=== PATIENT | male | born 1970 | race Caucasian/White ===

== ENCOUNTER 2019-12-05 07:14 | Inpatient (IN) | payer BC ==
[2019-12-05] MEDS ORDERED: ONDANSETRON 4 MG/2 ML VIAL IVP STA (07:53)
[2019-12-05] MEDS ORDERED: PANTOPRAZOLE 40 MG/10 ML VIAL IVP STA (07:53)
[2019-12-05] MEDS ORDERED: SODIUM CHLORIDE 0.9% 1,000 ML IV STA (07:53)
[2019-12-05] MEDS ORDERED: LORazepam 2 MG/ML INJ IV STA (07:54)
--- NOTE | 2019-12-05 07:57 | ED ---
General Adult HPI - General Chief complaint: Alcohol Stated complaint: Detox Time Seen by Provider: 12/05/19 07:45 Source: patient, family, RN notes reviewed Mode of arrival: ambulatory Limitations: no limitations - History of Present Illness Initial comments: Patient is a pleasant 49-year-old male presenting to the emergency department with concerns for alcohol problems. Patient states he drinks whiskey heavily for around 10 years. Patient states he stopped just over 3 days ago. Patient states he vomited heavily for 2 days however that has resolved. Patient does have some discomfort of his upper abdomen. Patient started shaking yesterday. This has improved however not resolved. Patient is having hallucinations. Patient is hearing things such as sounds and also seen some things that are difficult to identify. Patient did see a one time. There has been a little bit of confusion. No history of similar symptoms previously. admits that eyes look yellow which she just noticed this morning. Patient states his urine was dark this morning. - Related Data Allergies Allergy/AdvReac Type Severity Reaction Status Date / Time No Known Allergies Allergy Verified 12/05/19 07:40 Review of Systems ROS Statement: Those systems with pertinent positive or pertinent negative responses have been documented in the HPI. ROS Other: All systems not noted in ROS Statement are negative. Constitutional: Denies: fever, chills Eyes: Reports: as per HPI. Denies: eye pain ENT: Denies: ear pain Respiratory: Denies: dyspnea Cardiovascular: Denies: chest pain Endocrine: Reports: fatigue Gastrointestinal: Reports: as per HPI, nausea, vomiting Genitourinary: Denies: dysuria Musculoskeletal: Denies: back pain Skin: Denies: rash Neurological: Denies: weakness Past Medical History Past Medical History: No Reported History History of Any Multi-Drug Resistant Organisms: None Reported Past Surgical History: No Surgical Hx Reported Past Psychological History: No Psychological Hx Reported Smoking Status: Current every day smoker Past Alcohol Use History: Abuse, Heavy Past Drug Use History: Marijuana General Exam Limitations: no limitations General appearance: alert, in no apparent distress Head exam: Present: normocephalic Eye exam: Present: scleral icterus ENT exam: Present: normal oropharynx Neck exam: Present: normal inspection Respiratory exam: Present: normal lung sounds bilaterally Cardiovascular Exam: Present: tachycardia, normal heart sounds Expanded Peripheral pulses: 2+: Dorsalis Pedis (R), Dorsalis Pedis (L) GI/Abdominal exam: Present: soft, tenderness (Mild tenderness upper abdomen), organomegaly (Hepatomegaly) Extremities exam: Present: normal inspection Neurological exam: Present: alert Psychiatric exam: Present: normal affect, normal mood Skin exam: Present: other (Slight jaundice appearance to the skin) Course Vital Signs 12/05/19 07:37 Temperature 98.2 F Pulse Rate 117 H Respiratory 20 Rate Blood Pressure 125/88 O2 Sat by Pulse 100 Oximetry Medical Decision Making - Medical Decision Making Patient reevaluated. Patient and family updated. Case was discussed in detail with Dr. leal, who will admit for possible call. GI will be placed on consult. - Lab Data Result diagrams: 12/05/19 08:20 12/05/19 08:20 Lab Results 12/05/19 12/05/19 12/05/19 Range/Units 08:20 08:20 08:20 WBC 9.4 (3.8-10.6) k/uL RBC 2.85 L (4.30-5.90) m/uL Hgb 12.2 L (13.0-17.5) gm/dL Hct 37.2 L (39.0-53.0) % MCV 130.6 H (80.0-100.0) fL MCH 43.0 H (25.0-35.0) pg MCHC 32.9 (31.0-37.0) g/dL RDW 14.7 (11.5-15.5) % Plt Count 103 L (150-450) k/uL Neutrophils % 73 % Lymphocytes % 19 % Monocytes % 6 % Eosinophils % 1 % Basophils % 0 % Neutrophils # 6.8 (1.3-7.7) k/uL Lymphocytes # 1.8 (1.0-4.8) k/uL Monocytes # 0.5 (0-1.0) k/uL Eosinophils # 0.1 (0-0.7) k/uL Basophils # 0.0 (0-0.2) k/uL Manual Slide Review Performed Macrocytosis Marked A Target Cells Present PT 23.5 H (9.0-12.0) sec INR 2.4 H (<1.2) APTT 35.1 H (22.0-30.0) sec Sodium 129 L (137-145) mmol/L Potassium 3.8 (3.5-5.1) mmol/L Chloride 87 L (98-107) mmol/L Carbon Dioxide 29 (22-30) mmol/L Anion Gap 13 mmol/L BUN 18 (9-20) mg/dL Creatinine 0.85 (0.66-1.25) mg/dL Est GFR (CKD-EPI)AfAm >90 (>60 ml/min/1.73 sqM) Est GFR (CKD-EPI)NonAf >90 (>60 ml/min/1.73 sqM) Glucose 91 (74-99) mg/dL Calcium 9.9 (8.4-10.2) mg/dL Total Bilirubin 10.2 H (0.2-1.3) mg/dL AST 152 H (17-59) U/L ALT 73 H (4-49) U/L Alkaline Phosphatase 193 H (38-126) U/L Total Protein 6.5 (6.3-8.2) g/dL Albumin 3.3 L (3.5-5.0) g/dL Amylase 72 (30-110) U/L Lipase 324 H (23-300) U/L Hepatitis A IgM Ab 12/05/19 Range/Units 08:36 WBC (3.8-10.6) k/uL RBC (4.30-5.90) m/uL Hgb (13.0-17.5) gm/dL Hct (39.0-53.0) % MCV (80.0-100.0) fL MCH (25.0-35.0) pg MCHC (31.0-37.0) g/dL RDW (11.5-15.5) % Plt Count (150-450) k/uL Neutrophils % % Lymphocytes % % Monocytes % % Eosinophils % % Basophils % % Neutrophils # (1.3-7.7) k/uL Lymphocytes # (1.0-4.8) k/uL Monocytes # (0-1.0) k/uL Eosinophils # (0-0.7) k/uL Basophils # (0-0.2) k/uL Manual Slide Review Macrocytosis Target Cells PT (9.0-12.0) sec INR (<1.2) APTT (22.0-30.0) sec Sodium (137-145) mmol/L Potassium (3.5-5.1) mmol/L Chloride (98-107) mmol/L Carbon Dioxide (22-30) mmol/L Anion Gap mmol/L BUN (9-20) mg/dL Creatinine (0.66-1.25) mg/dL Est GFR (CKD-EPI)AfAm (>60 ml/min/1.73 sqM) Est GFR (CKD-EPI)NonAf (>60 ml/min/1.73 sqM) Glucose (74-99) mg/dL Calcium (8.4-10.2) mg/dL Total Bilirubin (0.2-1.3) mg/dL AST (17-59) U/L ALT (4-49) U/L Alkaline Phosphatase (38-126) U/L Total Protein (6.3-8.2) g/dL Albumin (3.5-5.0) g/dL Amylase (30-110) U/L Lipase (23-300) U/L Hepatitis A IgM Ab NEGATIVE - Radiology Data Radiology results: report reviewed (Ultrasound of the gallbladder shows hepatomegaly and fatty infiltration of the liver.), image reviewed (Abdominal x- ray shows no acute process) Disposition Clinical Impression: Alcoholic cirrhosis, Alcohol withdrawal Disposition: ADMITTED IP TO THIS [facility] Condition: Serious Is patient prescribed a controlled substance at d/c from ED?: No Referrals: None,Stated [Primary Care Provider] - 1-2 days Decision Time: 10:07
[2019-12-05 08:51] LABS: ALT 73 U/L (4-49); AST 152 U/L (17-59); African American GFR (CKD) >90 (>60 ml/min/1.73 sqM); Albumin 3.3 g/dL (3.5-5.0); Alkaline Phosphatase 193 U/L (38-126); Amylase 72 U/L (30-110); Anion Gap 13 mmol/L; Blood Urea Nitrogen 18 mg/dL (9-20); Calcium 9.9 mg/dL (8.4-10.2); Carbon Dioxide 29 mmol/L (22-30); Chloride 87 mmol/L (98-107); Glucose 91 mg/dL (74-99); Non-African American GFR(CKD) >90 (>60 ml/min/1.73 sqM); Potassium 3.8 mmol/L (3.5-5.1); Sodium 129 mmol/L (137-145); Total Bilirubin 10.2 mg/dL (0.2-1.3); Total Protein 6.5 g/dL (6.3-8.2)
--- NOTE | 2019-12-05 08:56 | XR ---
EXAMINATION TYPE: XR KUB , 2 VIEWS DATE OF EXAM ORDERED: 12/05/2019 HISTORY: abdominal pain. COMPARISON: None. FINDINGS: The lung bases are clear. Within the abdomen, the abdominal gas pattern is normal. There is no evidence of obstruction or free air. No unusual calcifications are seen. IMPRESSION: NO ACUTE INTRA-ABDOMINAL ABNORMALITY.
[2019-12-05 08:57] LABS: INR 2.4 (<1.2); Partial Thromboplastin Time 35.1 sec (22.0-30.0); Prothrombin Time 23.5 sec (9.0-12.0)
[2019-12-05 09:04] LABS: Basophils % (A) 0 %; Eosinophils # (A) 0.1 k/uL (0-0.7); Eosinophils % (A) 1 %; HCT 37.2 % (39.0-53.0); HGB 12.2 gm/dL (13.0-17.5); Lymphocytes # (A) 1.8 k/uL (1.0-4.8); Lymphocytes % (A) 19 %; MCHC 32.9 g/dL (31.0-37.0); MCV 130.6 fL (80.0-100.0); Macrocytosis Marked; Mean Platelet Volume 10.5; Monocytes # (A) 0.5 k/uL (0-1.0); Monocytes % (A) 6 %; Neutrophils # (A) 6.8 k/uL (1.3-7.7); Neutrophils % (A) 73 %; Platelet Count 103 k/uL (150-450); RBC 2.85 m/uL (4.30-5.90); RDW 14.7 % (11.5-15.5); WBC 9.4 k/uL (3.8-10.6)
[2019-12-05 09:32] LABS: Target Cells Present
--- NOTE | 2019-12-05 09:52 | US ---
EXAMINATION TYPE: US gallbladder DATE OF EXAM: 12/05/2019 COMPARISON: NONE CLINICAL HISTORY: Evaluate gallbladder and liver. Detox EXAM MEASUREMENTS: Liver Length: 19 cm Gallbladder Wall: .3 cm CBD: .5 cm Right Kidney: 10.4 x 4.6 x 4.3 cm Pancreas: Obscured by bowel gas Liver: Increased attenuation heterogenous enlarged. Gallbladder: No stones seen Evidence for sonographic Kaye's sign: No CBD: wnl Right Kidney: wnl The pancreas is obscured. The liver is enlarged measuring 19 cm there is increased attenuation and may be fatty infiltrated. Gallbladder is unremarkable. The gallbladder wall measures 3 mm. The distal common hepatic duct measu res 5 mm. There is no sonographic Kaye's sign. The right kidney is unremarkable. IMPRESSION: HEPATOMEGALY AND FATTY INFILTRATION OF THE LIVER.
[2019-12-05 09:58] LABS: Hepatitis A Antibody IgM NEGATIVE
[2019-12-05] MEDS ORDERED: NALOXONE 0.4 MG/ML 1 ML VIAL IV PRN (10:07)
[2019-12-05] MEDS: SODIUM CHLORIDE 0.9% 1,000 ML IV SCH (12:20)
--- NOTE | 2019-12-05 13:12 | P.CONS ---
History of Present Illness - Reason for Consult Consult date: 12/05/19 Alcoholic hepatitis, cirrhosis Requesting physician: Srinivasa E Sheet - Chief Complaint Alcohol withdrawl - History of Present Illness 49-year-old male with a medical history significant for alcoholism who presented to the hospital due to alcohol withdrawal. The patient reports 12 years of heavy drinking initially drinking a fifth of whiskey a day this had increased to a pint of whiskey daily for the past few years. The patient tried weaning himself off of alcohol however has suffered problems with balance, confusion and multiple episodes of nausea and vomiting a few days ago. Patient does report hallucinations. The patient has report that he has had yellowing of his eyes and dark urine over the past week. No known history of cirrhosis in the past. Laboratory evaluation on presentation significant for WBC 9.4, hemoglobin 12.2, platelet count 103,000, INR 2.4, total bilirubin 10.2, alkaline phosphatase 193, AST 152, ALT 73, amylase 72, lipase 324 with an ultrasound showing fatty infiltration of the liver and hepatomegaly. Review of Systems REVIEW OF SYSTEMS: CONSTITUTIONAL: Denies any fevers, chills, weight change or fatigue. CARDIOVASCULAR: Denies any chest pain, palpitations high or low blood pressures RESPIRATORY: Denies any shortness of breath, hemoptysis or cough. GENITOURINARY: No dysuria or hematuria, but does report dark [employer] colored urine. MUSCULOSKELETAL: No weakness reported. SKIN: Denies any new rashes or lesions, but does report pallor and jaundice PSYCHIATRIC: Denies any depression or anxiety, history of alcohol abuse. NEUROLOGY: Denies headache, denies any new focal deficits, but has had problems with balance and hallucinations. EARS/NOSE/THROAT: No recent hearing change, congestion, nasal discharge or sore throat. EYES: No pain in eyes, discharge or change in vision. GASTROINTESTINAL: As per HPI. Past Medical History Past Medical History: No Reported History History of Any Multi-Drug Resistant Organisms: None Reported Past Surgical History: No Surgical Hx Reported Past Anesthesia/Blood Transfusion Reactions: No Reported Reaction Past Psychological History: No Psychological Hx Reported Smoking Status: Current every day smoker Past Alcohol Use History: Abuse, Heavy Past Drug Use History: Marijuana - Past Family History Father Family Medical History: Cancer Medications and Allergies Home Medications Medication Instructions Recorded Confirmed Type No Known Home Medications 12/05/19 12/05/19 History Allergies Allergy/AdvReac Type Severity Reaction Status Date / Time No Known Allergies Allergy Verified 12/05/19 12:35 Physical Exam Vitals: Vital Signs Temp Pulse Pulse Resp BP BP Pulse Ox 12/05/19 12:15 14 12/05/19 11:45 98.3 F 112 H 20 143/87 94 L 12/05/19 11:10 105 H 18 130/88 96 12/05/19 07:37 98.2 F 117 H 20 125/88 100 Intake and Output 12/04/19 12/05/19 12/05/19 22:59 06:59 14:59 Other: Weight 61.235 kg On physical examination, patient appears comfortable in no apparent distress. HEAD: Normocephalic, atraumatic. EYES: Scleral icterus. No conjunctival injection. MOUTH: No lesions, tongue midline. NECK: Trachea midline, no gross abnormalities. CHEST: Clear to auscultation with no wheezing or rhonchi appreciated. HEART: Regular rate and rhythm. ABDOMEN: Soft, mildly tender to palpation. Bowel sounds are positive. No organomegaly. No guarding or rigidity. EXTREMITIES: No pedal edema. SKIN: No rashes, jaundice. NEUROLOGIC: Alert and oriented x3, with no asterixis noted. No focal deficits. Results CBC & Chem 7: 12/05/19 08:20 12/05/19 08:20 Labs: Abnormal Lab Results - Last 24 Hours (Table) 12/05/19 12/05/19 12/05/19 Range/Units 08:20 08:20 08:20 RBC 2.85 L (4.30-5.90) m/uL Hgb 12.2 L (13.0-17.5) gm/dL Hct 37.2 L (39.0-53.0) % MCV 130.6 H (80.0-100.0) fL MCH 43.0 H (25.0-35.0) pg Plt Count 103 L (150-450) k/uL Macrocytosis Marked A PT 23.5 H (9.0-12.0) sec INR 2.4 H (<1.2) APTT 35.1 H (22.0-30.0) sec Sodium 129 L (137-145) mmol/L Chloride 87 L (98-107) mmol/L Total Bilirubin 10.2 H (0.2-1.3) mg/dL AST 152 H (17-59) U/L ALT 73 H (4-49) U/L Alkaline Phosphatase 193 H (38-126) U/L Albumin 3.3 L (3.5-5.0) g/dL Lipase 324 H (23-300) U/L US - abdomen: report reviewed (Ultrasound of the abdomen with hepatomegaly and fatty infiltration of liver noted.) Assessment and Plan (1) Alcoholic hepatitis Narrative/Plan: 49-year-old male with long-standing history of alcohol abuse presenting due to alcohol withdrawal. Liver enzymes highly suggestive of acute alcoholic hepatitis with thrombocytopenia highly suggestive of portal hypertension and underlying cirrhosis. On presentation to bilirubin 10.2, alkaline phosphatase 193, AST 152 and ALT 73 with an INR of 2.4 and a platelet count of 103,000. Ultrasound of the abdomen showed a fatty liver with hepatomegaly. Patient has been drinking heavily for 12 years. He has noted jaundice and dark urine over the past week and has been going through alcohol withdrawal. Current Visit: Yes Status: Acute Code(s): K70.10 - ALCOHOLIC HEPATITIS WITHOUT ASCITES SNOMED Code(s): 094215315 (2) Alcohol withdrawal Current Visit: Yes Status: Acute Code(s): F10.239 - ALCOHOL DEPENDENCE WITH WITHDRAWAL, UNSPECIFIED SNOMED Code(s): 147215178 (3) Alcoholic cirrhosis Current Visit: Yes Status: Acute Code(s): K70.30 - ALCOHOLIC CIRRHOSIS OF LIVER WITHOUT ASCITES SNOMED Code(s): 057459220 Plan: Supportive care Clear liquid diet Continue monitor CBC, BMP, LFTs, INR Vitamin K IV given for 3 doses Lactulose ordered twice a day Ammonia level ordered Viral hepatitis negative for acute hepatitis A with other viral studies pending Ultrasound of the abdomen reviewed Continue to monitor for signs or symptoms of alcohol withdrawal Thank you for allowing us to participate in the care of the patient we will continue to follow
[2019-12-05] MEDS: PHYTONADIONE 10 MG in SODIUM CHLORIDE 0.9% 50 ML IVPB SCH (15:25)
[2019-12-05] MEDS: NICOTINE 21MG/24HR PATCH TRANSDERM SCH (15:25)
--- NOTE | 2019-12-05 16:50 | XR ---
EXAMINATION TYPE: XR chest 1V DATE OF EXAM: 12/05/2019 COMPARISON: NONE HISTORY: Altered mental status TECHNIQUE: Single view FINDINGS: Heart and mediastinum are normal. Lungs are clear. Diaphragm is normal. Bony thorax appears normal. IMPRESSION: Normal chest. Normal heart.
[2019-12-05] MEDS: LORazepam 2 MG/ML INJ IV PRN ×3 (17:20→19:58)
--- NOTE | 2019-12-05 17:20 | CT ---
EXAMINATION TYPE: CT brain wo con DATE OF EXAM: 12/05/2019 COMPARISON: None HISTORY: Patient poor historian. Confusion CT DLP: 1012.7 mGycm Automated exposure control for dose reduction was used. Multiple axial sections were obtained of the brain without contrast. Ventricles and sulci appear normal. There is no mass effect nor midline shift. There is no sign of in tracranial hemorrhage. The calvarium is intact. There is incomplete pneumatization of the mastoid sin uses. IMPRESSION: Negative unenhanced head CT scan.
[2019-12-05] MEDS: THIAMINE 100 MG TAB PO SCH (17:21)
[2019-12-05] MEDS: LACTULOSE 20 GM/30 ML CUP PO SCH (21:11)
[2019-12-06] MEDS: LORazepam 2 MG/ML INJ IV PRN ×13 (00:39→23:35)
[2019-12-06] MEDS: SODIUM CHLORIDE 0.9% 1,000 ML IV SCH (05:10)
[2019-12-06 07:22] LABS: INR 1.8 (<1.2); Prothrombin Time 17.8 sec (9.0-12.0)
[2019-12-06 07:25] LABS: Albumin 2.7 g/dL (3.5-5.0); Bilirubin, Conjugated 7.9 mg/dL (0.0-0.3); Bilirubin, Delta 2.2 mg/dL (0.0-0.2); Bilirubin,Unconjugated 2.5 mg/dL (0.0-1.1); Total Bilirubin 12.6 mg/dL (0.2-1.3); Total Protein 5.7 g/dL (6.3-8.2)
[2019-12-06] MEDS: NICOTINE 21MG/24HR PATCH TRANSDERM SCH (07:52)
[2019-12-06] MEDS: PANTOPRAZOLE 40 MG/10 ML VIAL IV SCH (07:52)
[2019-12-06] MEDS: THIAMINE 100 MG TAB PO SCH ×2 (07:57→17:45)
[2019-12-06] MEDS: LACTULOSE 20 GM/30 ML CUP PO SCH ×2 (07:58→20:09)
[2019-12-06] MEDS: MULTIVITAMINS, THERA 1 EACH TAB PO SCH (07:58)
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
[2019-12-06 09:48] LABS: ALT 78 U/L (4-49); AST 151 U/L (17-59); African American GFR (CKD) >90 (>60 ml/min/1.73 sqM); Albumin 2.7 g/dL (3.5-5.0); Alkaline Phosphatase 158 U/L (38-126); Anion Gap 13 mmol/L; Blood Urea Nitrogen 18 mg/dL (9-20); Calcium 8.7 mg/dL (8.4-10.2); Carbon Dioxide 26 mmol/L (22-30); Chloride 93 mmol/L (98-107); Magnesium 1.8 mg/dL (1.6-2.3); Non-African American GFR(CKD) >90 (>60 ml/min/1.73 sqM); Potassium 3.6 mmol/L (3.5-5.1); Sodium 132 mmol/L (137-145); Total Protein 5.7 g/dL (6.3-8.2)
[2019-12-06 09:57] LABS: Basophils % (A) 0 %; Eosinophils # (A) 0.1 k/uL (0-0.7); Eosinophils % (A) 1 %; HCT 32.1 % (39.0-53.0); HGB 10.5 gm/dL (13.0-17.5); Lymphocytes # (A) 1.8 k/uL (1.0-4.8); Lymphocytes % (A) 20 %; MCHC 32.6 g/dL (31.0-37.0); MCV 132.7 fL (80.0-100.0); Macrocytosis Marked; Mean Platelet Volume 11.8; Monocytes # (A) 0.7 k/uL (0-1.0); Monocytes % (A) 8 %; Neutrophils # (A) 6.1 k/uL (1.3-7.7); Neutrophils % (A) 69 %; Platelet Count 100 k/uL (150-450); RBC 2.42 m/uL (4.30-5.90); RDW 15.5 % (11.5-15.5); WBC 8.9 k/uL (3.8-10.6)
[2019-12-06 10:00] LABS: MCH 43.3 pg (25.0-35.0)
[2019-12-06 10:07] LABS: Glucose 46 mg/dL (74-99)
[2019-12-06] MEDS ORDERED: DEXTROSE 50% SYRINGE 50 ML IVP ONE (10:16)
[2019-12-06 10:17] LABS: Glucose,Whole Blood 56 mg/dL (75-99)
[2019-12-06 10:42] LABS: Poikilocytosis (M) Present; Target Cells Present
[2019-12-06 10:50] LABS: Glucose,Whole Blood 209 mg/dL (75-99)
[2019-12-06] MEDS ORDERED: DEXTROSE 50% SYRINGE 50 ML IVP STA (10:50)
[2019-12-06] MEDS: DEXTROSE 5%-0.9% NACL 1,000 ML IV SCH (12:33)
[2019-12-06] MEDS: PHYTONADIONE 10 MG in SODIUM CHLORIDE 0.9% 50 ML IVPB SCH (12:39)
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
[2019-12-06 13:29] LABS: Appearance,Urine Clear (Clear); Bilirubin,Urine 2+ (Negative); Blood,Urine Negative (Negative); Color,Urine Dark Brown; Glucose,Urine (UA) Negative (Negative); Ketones,Urine 1+ (Negative); Leukocyte Esterase,Urine Negative (Negative); Nitrite,Urine Negative (Negative); PH, Urine 6.5 (5.0-8.0); Protein,Urine Negative (Negative); Specific Gravity,Urine 1.023 (1.001-1.035)
[2019-12-06 14:04] LABS: Hepatitis B Core IgM Non-Reactive (Non-Reactive); Hepatitis B Surface Antigen Non-Reactive (Non-Reactive); Hepatitis C IgG Antibody Non-Reactive (Non-Reactive)
[2019-12-06 15:34] LABS: Glucose,Whole Blood 70 mg/dL (75-99)
--- NOTE | 2019-12-06 17:43 | P.PN ---
Subjective Progress Note Date: 12/06/19 Principal diagnosis: Alcoholic liver disease, alcoholic hepatitis, elevated liver enzymes, alcohol withdrawal Patient is seen lying in bed, quite lethargic after receiving anxiolytic for alcohol withdrawal. Objective - Vital Signs Vital signs: Vital Signs Temp 98.4 F 12/06/19 16:00 Pulse 120 H 12/06/19 16:00 Resp 15 12/06/19 16:00 BP 114/80 12/06/19 16:00 Pulse Ox 94 L 12/06/19 16:00 Intake & Output 12/05/19 12/06/19 12/06/19 18:59 06:59 18:59 Intake Total 120 1440 945 Output Total 0 335 Balance 120 1440 610 Weight 61.235 kg Intake: IV 1440 75 Dextrose 5%-0.9% NaCl 1, 75 000 ml @ 75 mls/hr IV . [id number] PRAVEEN Rx#:[id number] Sodium Chloride 0.9% 1, 1440 000 ml @ 75 mls/hr IV . [id number] PRAVEEN Rx#:[id number] Intake, IV Titration 120 870 Amount Sodium Chloride 0.9% 1, 720 000 ml @ 130 mls/hr IV . Q7H42M STA Rx#:[id number] Sodium Chloride 0.9% 1, 120 150 000 ml @ 75 mls/hr IV . [id number] PRAVEEN Rx#:[id number] Output: Urine 0 335 Other: Voiding Method Indwelling Catheter # Voids 2 2 - Exam On physical examination, patient appears comfortable in no apparent distress. HEAD: Normocephalic, atraumatic. EYES: No scleral icterus. No conjunctival injection. MOUTH: No lesions, tongue midline. NECK: Trachea midline, no gross abnormalities. ABDOMEN: Soft, thin. Bowel sounds are positive. No organomegaly. No guarding or rigidity. EXTREMITIES: No pedal edema. SKIN: No rashes, no jaundice. NEUROLOGIC: Alert and oriented to person, lethargic, tremulousness but no asterixis noted. No focal deficits. - Labs CBC & Chem 7: 12/06/19 06:04 12/06/19 06:04 Labs: Abnormal Lab Results - Last 24 Hours (Table) 12/06/19 12/06/19 12/06/19 Range/Units 06:04 06:04 06:04 RBC 2.42 L (4.30-5.90) m/uL Hgb 10.5 L (13.0-17.5) gm/dL Hct 32.1 L (39.0-53.0) % MCV 132.7 H (80.0-100.0) fL MCH 43.3 H (25.0-35.0) pg Plt Count 100 L (150-450) k/uL Macrocytosis Marked A PT 17.8 H (9.0-12.0) sec INR 1.8 H (<1.2) Sodium (137-145) mmol/L Chloride (98-107) mmol/L Glucose (74-99) mg/dL POC Glucose (mg/dL) (75-99) mg/dL Total Bilirubin 12.6 H (0.2-1.3) mg/dL Conjugated Bilirubin 7.9 H (0.0-0.3) mg/dL Unconjugated Bilirubin 2.5 H (0.0-1.1) mg/dL Delta Bilirubin 2.2 H (0.0-0.2) mg/dL AST 150 H (17-59) U/L ALT 78 H (4-49) U/L Alkaline Phosphatase 158 H (38-126) U/L Total Protein 5.7 L (6.3-8.2) g/dL Albumin 2.7 L (3.5-5.0) g/dL Urine Ketones (Negative) Urine Bilirubin (Negative) 12/06/19 12/06/19 12/06/19 Range/Units 06:04 10:14 10:37 RBC (4.30-5.90) m/uL Hgb (13.0-17.5) gm/dL Hct (39.0-53.0) % MCV (80.0-100.0) fL MCH (25.0-35.0) pg Plt Count (150-450) k/uL Macrocytosis PT (9.0-12.0) sec INR (<1.2) Sodium 132 L (137-145) mmol/L Chloride 93 L (98-107) mmol/L Glucose 46 L* (74-99) mg/dL POC Glucose (mg/dL) 56 L 209 H (75-99) mg/dL Total Bilirubin 12.0 H (0.2-1.3) mg/dL Conjugated Bilirubin (0.0-0.3) mg/dL Unconjugated Bilirubin (0.0-1.1) mg/dL Delta Bilirubin (0.0-0.2) mg/dL AST 151 H (17-59) U/L ALT 78 H (4-49) U/L Alkaline Phosphatase 158 H (38-126) U/L Total Protein 5.7 L (6.3-8.2) g/dL Albumin 2.7 L (3.5-5.0) g/dL Urine Ketones (Negative) Urine Bilirubin (Negative) 12/06/19 12/06/19 Range/Units 13:00 15:29 RBC (4.30-5.90) m/uL Hgb (13.0-17.5) gm/dL Hct (39.0-53.0) % MCV (80.0-100.0) fL MCH (25.0-35.0) pg Plt Count (150-450) k/uL Macrocytosis PT (9.0-12.0) sec INR (<1.2) Sodium (137-145) mmol/L Chloride (98-107) mmol/L Glucose (74-99) mg/dL POC Glucose (mg/dL) 70 L (75-99) mg/dL Total Bilirubin (0.2-1.3) mg/dL Conjugated Bilirubin (0.0-0.3) mg/dL Unconjugated Bilirubin (0.0-1.1) mg/dL Delta Bilirubin (0.0-0.2) mg/dL AST (17-59) U/L ALT (4-49) U/L Alkaline Phosphatase (38-126) U/L Total Protein (6.3-8.2) g/dL Albumin (3.5-5.0) g/dL Urine Ketones 1+ H (Negative) Urine Bilirubin 2+ H (Negative) Assessment and Plan (1) Alcoholic hepatitis Narrative/Plan: 49-year-old male with long-standing history of alcohol abuse presenting due to alcohol withdrawal. Liver enzymes highly suggestive of acute alcoholic hepatitis with thrombocytopenia highly suggestive of portal hypertension and underlying cirrhosis. On presentation to bilirubin 10.2, alkaline phosphatase 193, AST 152 and ALT 73 with an INR of 2.4 and a platelet count of 103,000. Ultrasound of the abdomen showed a fatty liver with hepatomegaly. Patient has been drinking heavily for 12 years. He has noted jaundice and dark urine over the past week and has been going through alcohol withdrawal. Current Visit: Yes Status: Acute Code(s): K70.10 - ALCOHOLIC HEPATITIS WITHOUT ASCITES SNOMED Code(s): 653967973 (2) Alcohol withdrawal Current Visit: Yes Status: Acute Code(s): F10.239 - ALCOHOL DEPENDENCE WITH WITHDRAWAL, UNSPECIFIED SNOMED Code(s): 026150551 (3) Alcoholic cirrhosis Current Visit: Yes Status: Acute Code(s): K70.30 - ALCOHOLIC CIRRHOSIS OF [place] WITHOUT ASCITES SNOMED Code(s): 166250097 Plan: Supportive care Clear liquid diet Continue monitor CBC, BMP, LFTs, INR Vitamin K IV given for 3 doses Lactulose ordered twice a day Ammonia level ordered Viral hepatitis negative for acute hepatitis A with other viral studies pending Ultrasound of the abdomen reviewed Continue to monitor for signs or symptoms of alcohol withdrawal Thank you for allowing us to participate in the care of the patient we will continue to follow
[2019-12-06] MEDS ORDERED: DEXTROSE 50% SYRINGE 50 ML IVP PRN (18:16)
[2019-12-06] MEDS: HALOPERIDOL LACTATE 5 MG/ML 1 ML VIAL IVP PRN ×2 (18:32→23:49)
[2019-12-06 23:17] LABS: Glucose,Whole Blood 134 mg/dL (75-99)
[2019-12-07] MEDS: LORazepam 2 MG/ML INJ IV PRN ×18 (00:05→19:53)
[2019-12-07] MEDS: DEXTROSE 5%-0.9% NACL 1,000 ML IV SCH ×3 (00:49→20:57)
[2019-12-07 04:53] LABS: ALT 89 U/L (4-49); AST 177 U/L (17-59); African American GFR (CKD) >90 (>60 ml/min/1.73 sqM); Albumin 2.7 g/dL (3.5-5.0); Alkaline Phosphatase 147 U/L (38-126); Anion Gap 8 mmol/L; Bilirubin, Conjugated 7.4 mg/dL (0.0-0.3); Bilirubin, Delta 2.6 mg/dL (0.0-0.2); Bilirubin,Unconjugated 1.7 mg/dL (0.0-1.1); Blood Urea Nitrogen 19 mg/dL (9-20); Calcium 8.4 mg/dL (8.4-10.2); Carbon Dioxide 29 mmol/L (22-30); Chloride 96 mmol/L (98-107); Glucose 93 mg/dL (74-99); Non-African American GFR(CKD) >90 (>60 ml/min/1.73 sqM); Potassium 3.1 mmol/L (3.5-5.1); Sodium 133 mmol/L (137-145); Total Bilirubin 11.7 mg/dL (0.2-1.3); Total Protein 5.6 g/dL (6.3-8.2)
[2019-12-07 04:57] LABS: INR 1.5 (<1.2); Prothrombin Time 14.6 sec (9.0-12.0)
[2019-12-07 05:34] LABS: HCT 28.8 % (39.0-53.0); HGB 9.3 gm/dL (13.0-17.5); MCHC 32.4 g/dL (31.0-37.0); Macrocytosis Marked; Mean Platelet Volume 9.9; Platelet Count 131 k/uL (150-450); RBC 2.13 m/uL (4.30-5.90); RDW 14.9 % (11.5-15.5)
[2019-12-07] MEDS ORDERED: Potassium Replacement Protocol 1 EACH MISC MISCELLANE PRN (05:39)
[2019-12-07 05:50] LABS: Glucose,Whole Blood 115 mg/dL (75-99)
[2019-12-07] MEDS: POTASSIUM CHLORIDE 20 MEQ in WATER FOR INJECTION 1 100ML.BAG IVPB SCH ×3 (05:54→10:54)
[2019-12-07 05:57] LABS: MCH 43.8 pg (25.0-35.0)
[2019-12-07] MEDS: HALOPERIDOL LACTATE 5 MG/ML 1 ML VIAL IVP PRN ×4 (06:40→18:02)
[2019-12-07 06:42] LABS: Band Neutrophils % 4 %; Eosinophils # (M) 0.16 k/uL (0-0.7); Lymphocytes # (M) 0.74 k/uL (1.0-4.8); Monocytes # (M) 0.98 k/uL (0-1.0); Neutrophils % (M) 75 %; Nucleated Red Blood Cells 1 /100 WBC (0-0); Total Cells Counted 200; WBC 8.2 k/uL (3.8-10.6)
[2019-12-07 06:43] LABS: Polychromasia Present; Target Cells Present
[2019-12-07] MEDS: THIAMINE 100 MG TAB PO SCH (07:26)
[2019-12-07] MEDS: NICOTINE 21MG/24HR PATCH TRANSDERM SCH (08:49)
[2019-12-07] MEDS: PANTOPRAZOLE 40 MG/10 ML VIAL IV SCH (08:49)
[2019-12-07] MEDS: LACTULOSE 20 GM/30 ML CUP PO SCH ×2 (09:19→21:39)
[2019-12-07] MEDS: MULTIVITAMINS, THERA 1 EACH TAB PO SCH (09:19)
[2019-12-07] MEDS: 1: MVI, ADULT NO.4 WITH VIT K 10 ML, THIAMINE 100 MG, FOLIC ACID 1 MG in SODIUM CHLORIDE IV SCH ×8 (10:44→20:56)
[2019-12-07 12:01] LABS: Glucose,Whole Blood 96 mg/dL (75-99)
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
[2019-12-07 18:06] LABS: Glucose,Whole Blood 112 mg/dL (75-99)
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
--- NOTE | 2019-12-07 19:39 | P.PN ---
Subjective Progress Note Date: 12/07/19 Principal diagnosis: Alcoholic liver disease, alcoholic hepatitis, elevated liver enzymes, alcohol withdrawal Patient is seen lying in bed, currently in the ICU. Patient has been somewhat combative and in restraints. Objective - Vital Signs Vital signs: Vital Signs Temp 98.4 F 12/07/19 08:00 Pulse 96 12/07/19 11:00 Resp 12 12/07/19 11:00 BP 132/82 12/07/19 11:00 Pulse Ox 98 12/07/19 11:00 Intake & Output 12/06/19 12/07/19 12/07/19 18:59 06:59 18:59 Intake Total 1220 1125 325 Output Total 445 380 155 Balance 775 745 170 Weight 56.5 kg Intake: IV 350 1125 325 Dextrose 5%-0.9% NaCl 1, 275 1000 000 ml @ 100 mls/hr IV . Q10H [facility] Rx#:[id number] Potassium 50 250 Sodium Chloride 0.9% 1, 75 75 75 000 ml @ 75 mls/hr IV . [id number] [facility] Rx#:[id number] Intake, IV Titration 870 Amount Sodium Chloride 0.9% 1, 720 000 ml @ 130 mls/hr IV . Q7H42M [facility] Rx#:[id number] Sodium Chloride 0.9% 1, 150 000 ml @ 75 mls/hr IV . [id number] [facility] Rx#:[id number] Output: Urine 445 380 155 Other: Voiding Method Indwelling Catheter Indwelling Catheter Indwelling Catheter # Voids 2 - Exam On physical examination, patient appears comfortable in no apparent distress. HEAD: Normocephalic, atraumatic. EYES: No scleral icterus. No conjunctival injection. MOUTH: No lesions, tongue midline. NECK: Trachea midline, no gross abnormalities. ABDOMEN: Soft, thin. Bowel sounds are positive. No organomegaly. No guarding or rigidity. EXTREMITIES: No pedal edema. SKIN: No rashes, no jaundice. NEUROLOGIC: Alert and oriented to person, tremulousness but no asterixis noted. No focal deficits. - Labs CBC & Chem 7: 12/07/19 04:28 12/07/19 04:28 Labs: Abnormal Lab Results - Last 24 Hours (Table) 12/06/19 12/06/19 12/06/19 Range/Units 13:00 15:29 23:16 RBC (4.30-5.90) m/uL Hgb (13.0-17.5) gm/dL Hct (39.0-53.0) % MCV (80.0-100.0) fL MCH (25.0-35.0) pg Plt Count (150-450) k/uL Lymphocytes # (Manual) (1.0-4.8) k/uL Nucleated RBCs (0-0) /100 WBC Macrocytosis PT (9.0-12.0) sec INR (<1.2) Sodium (137-145) mmol/L Potassium (3.5-5.1) mmol/L Chloride (98-107) mmol/L Creatinine (0.66-1.25) mg/dL POC Glucose (mg/dL) 70 L 134 H (75-99) mg/dL Total Bilirubin (0.2-1.3) mg/dL Conjugated Bilirubin (0.0-0.3) mg/dL Unconjugated Bilirubin (0.0-1.1) mg/dL Delta Bilirubin (0.0-0.2) mg/dL AST (17-59) U/L ALT (4-49) U/L Alkaline Phosphatase (38-126) U/L Total Protein (6.3-8.2) g/dL Albumin (3.5-5.0) g/dL Urine Ketones 1+ H (Negative) Urine Bilirubin 2+ H (Negative) 12/07/19 12/07/19 12/07/19 Range/Units 04:28 04:28 04:28 RBC 2.13 L (4.30-5.90) m/uL Hgb 9.3 L (13.0-17.5) gm/dL Hct 28.8 L (39.0-53.0) % MCV 135.0 H (80.0-100.0) fL MCH 43.8 H (25.0-35.0) pg Plt Count 131 L (150-450) k/uL Lymphocytes # (Manual) 0.74 L (1.0-4.8) k/uL Nucleated RBCs 1 H (0-0) /100 WBC Macrocytosis Marked A PT 14.6 H (9.0-12.0) sec INR 1.5 H (<1.2) Sodium 133 L (137-145) mmol/L Potassium 3.1 L (3.5-5.1) mmol/L Chloride 96 L (98-107) mmol/L Creatinine 0.63 L (0.66-1.25) mg/dL POC Glucose (mg/dL) (75-99) mg/dL Total Bilirubin 11.7 H (0.2-1.3) mg/dL Conjugated Bilirubin 7.4 H (0.0-0.3) mg/dL Unconjugated Bilirubin 1.7 H (0.0-1.1) mg/dL Delta Bilirubin 2.6 H (0.0-0.2) mg/dL AST 177 H (17-59) U/L ALT 89 H (4-49) U/L Alkaline Phosphatase 147 H (38-126) U/L Total Protein 5.6 L (6.3-8.2) g/dL Albumin 2.7 L (3.5-5.0) g/dL Urine Ketones (Negative) Urine Bilirubin (Negative) 12/07/19 Range/Units 05:49 RBC (4.30-5.90) m/uL Hgb (13.0-17.5) gm/dL Hct (39.0-53.0) % MCV (80.0-100.0) fL MCH (25.0-35.0) pg Plt Count (150-450) k/uL Lymphocytes # (Manual) (1.0-4.8) k/uL Nucleated RBCs (0-0) /100 WBC Macrocytosis PT (9.0-12.0) sec INR (<1.2) Sodium (137-145) mmol/L Potassium (3.5-5.1) mmol/L Chloride (98-107) mmol/L Creatinine (0.66-1.25) mg/dL POC Glucose (mg/dL) 115 H (75-99) mg/dL Total Bilirubin (0.2-1.3) mg/dL Conjugated Bilirubin (0.0-0.3) mg/dL Unconjugated Bilirubin (0.0-1.1) mg/dL Delta Bilirubin (0.0-0.2) mg/dL AST (17-59) U/L ALT (4-49) U/L Alkaline Phosphatase (38-126) U/L Total Protein (6.3-8.2) g/dL Albumin (3.5-5.0) g/dL Urine Ketones (Negative) Urine Bilirubin (Negative) Assessment and Plan (1) Alcoholic hepatitis Narrative/Plan: 49-year-old male with long-standing history of alcohol abuse presenting due to alcohol withdrawal. Liver enzymes highly suggestive of acute alcoholic hepatitis with thrombocytopenia highly suggestive of portal hypertension and underlying cirrhosis. On presentation to bilirubin 10.2, alkaline phosphatase 193, AST 152 and ALT 73 with an INR of 2.4 and a platelet count of 103,000 18, with INR improved at 1.5 status post transfusion of blood. Ultrasound of the abdomen showed a fatty liver with hepatomegaly. Patient has been drinking heavily for 12 years. He has noted jaundice and dark urine over the past week and has been going through alcohol withdrawal. Current Visit: Yes Status: Acute Code(s): K70.10 - ALCOHOLIC HEPATITIS WI THOUT ASCITES SNOMED Code(s): 161066047 (2) Alcohol withdrawal Current Visit: Yes Status: Acute Code(s): F10.239 - ALCOHOL DEPENDENCE WITH WITHDRAWAL, UNSPECIFIED SNOMED Code(s): 557176878 (3) Alcoholic cirrhosis Current Visit: Yes Status: Acute Code(s): K70.30 - ALCOHOLIC CIRRHOSIS OF LIVER WITHOUT ASCITES SNOMED Code(s): 762459484 Plan: Supportive care Clear liquid diet Continue monitor CBC, BMP, LFTs, INR Status post Vitamin K IV given for 3 doses Lactulose ordered twice a day Ammonia level within normal limits of the Viral hepatitis negative Ultrasound of the abdomen reviewed Continue to monitor for signs or symptoms of alcohol withdrawal Thank you for allowing us to participate in the care of the patient we will continue to follow
[2019-12-07] MEDS: HEPARIN SODIUM,PORCINE 5,000 UNIT/ML 1 ML VIAL SQ SCH (23:02)
[2019-12-07 23:07] LABS: Glucose,Whole Blood 123 mg/dL (75-99)
[2019-12-08] MEDS: LORazepam 2 MG/ML INJ IV PRN ×5 (02:06→20:21)
[2019-12-08 04:16] LABS: HGB 8.5 gm/dL (13.0-17.5); Hypochromasia Marked; MCHC 31.6 g/dL (31.0-37.0); MCV 136.3 fL (80.0-100.0); Mean Platelet Volume 9.2; Platelet Count 105 k/uL (150-450); RBC 1.98 m/uL (4.30-5.90); RDW 14.8 % (11.5-15.5); WBC 7.3 k/uL (3.8-10.6)
[2019-12-08 04:27] LABS: ALT 140 U/L (4-49); AST 275 U/L (17-59); African American GFR (CKD) >90 (>60 ml/min/1.73 sqM); Albumin 2.3 g/dL (3.5-5.0); Alkaline Phosphatase 148 U/L (38-126); Anion Gap 6 mmol/L; Blood Urea Nitrogen 13 mg/dL (9-20); Calcium 7.9 mg/dL (8.4-10.2); Carbon Dioxide 24 mmol/L (22-30); Chloride 105 mmol/L (98-107); Glucose 107 mg/dL (74-99); Non-African American GFR(CKD) >90 (>60 ml/min/1.73 sqM); Potassium 3.7 mmol/L (3.5-5.1); Sodium 135 mmol/L (137-145); Total Bilirubin 10.8 mg/dL (0.2-1.3); Total Protein 5.1 g/dL (6.3-8.2)
[2019-12-08] MEDS ORDERED: Potassium Replacement Protocol 1 EACH MISC MISCELLANE PRN (04:48)
[2019-12-08] MEDS: HALOPERIDOL LACTATE 5 MG/ML 1 ML VIAL IVP PRN (05:02)
[2019-12-08] MEDS: POTASSIUM CHLORIDE 10 MEQ in WATER FOR INJECTION 1 100ML.BAG IVPB SCH ×2 (05:03→06:10)
[2019-12-08 05:04] LABS: Macrocytosis Marked
[2019-12-08 05:15] LABS: Glucose,Whole Blood 99 mg/dL (75-99)
[2019-12-08] MEDS: DEXTROSE 5%-0.9% NACL 1,000 ML IV SCH ×3 (05:45→20:36)
[2019-12-08] MEDS: 1: MVI, ADULT NO.4 WITH VIT K 10 ML, THIAMINE 100 MG, FOLIC ACID 1 MG in SODIUM CHLORIDE IV SCH ×8 (05:45→13:59)
[2019-12-08] MEDS: LACTULOSE 20 GM/30 ML CUP PO SCH ×2 (07:58→20:06)
[2019-12-08] MEDS: NICOTINE 21MG/24HR PATCH TRANSDERM SCH (08:09)
[2019-12-08] MEDS: HEPARIN SODIUM,PORCINE 5,000 UNIT/ML 1 ML VIAL SQ SCH ×2 (08:09→20:11)
[2019-12-08] MEDS: PANTOPRAZOLE 40 MG/10 ML VIAL IV SCH ×2 (08:09→20:11)
[2019-12-08 11:38] LABS: Glucose,Whole Blood 102 mg/dL (75-99)
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
--- NOTE | 2019-12-08 13:43 | P.PN ---
Subjective Progress Note Date: 12/08/19 Principal diagnosis: Alcoholic liver disease, alcoholic hepatitis, elevated liver enzymes, alcohol withdrawal Patient is seen lying in bed, currently in the ICU. Patient is somewhat more awake and alert today. Less agitated. Objective - Vital Signs Vital signs: Vital Signs Temp 98.1 F 12/08/19 08:00 Pulse 81 12/08/19 11:00 Resp 19 12/08/19 11:00 BP 132/75 12/08/19 11:00 Pulse Ox 98 12/08/19 11:00 Intake & Output 12/07/19 12/08/19 12/08/19 18:59 06:59 18:59 Intake Total 1425 2711.2 700 Output Total 445 740 215 Balance 980 1971.2 485 Weight 58.4 kg Intake: IV 1425 1500 700 Dextrose 5%-0.9% NaCl 1, 200 1100 300 000 ml @ 50 mls/hr IV . Q20H [facility] Rx#:[id number] Mvi, Adult No.4 with Vit 800 400 400 K 10 ml Thiamine 100 mg Folic Acid 1 mg In Sodium Chloride 0.9% 1,000 ml @ 50 mls/hr IV .BY DURATION [facility] Rx#: [id number] Potassium 350 Sodium Chloride 0.9% 1, 75 000 ml @ 75 mls/hr IV . [id number] [facility] Rx#:[id number] Intake, IV Titration 1211.2 Amount Mvi, Adult No.4 with Vit 1011.2 K 10 ml Thiamine 100 mg Folic Acid 1 mg In Sodium Chloride 0.9% 1,000 ml @ 50 mls/hr IV .BY DURATION [facility] Rx#: [id number] Potassium Chloride 10 meq 200 In Water For Injection 1 100ml.bag @ 100 mls/hr IVPB Q1H [facility] Rx#: [id number] Output: Urine 445 740 215 Other: Voiding Method Indwelling Catheter Indwelling Catheter Indwelling Catheter - Exam On physical examination, patient appears comfortable in no apparent distress. HEAD: Normocephalic, atraumatic. EYES: No scleral icterus. No conjunctival injection. MOUTH: No lesions, tongue midline. NECK: Trachea midline, no gross abnormalities. ABDOMEN: Soft, thin. Bowel sounds are positive. No organomegaly. No guarding or rigidity. EXTREMITIES: No pedal edema. SKIN: No rashes, no jaundice. NEUROLOGIC: Alert and oriented x3, tremulousness but no asterixis noted. No focal deficits. - Labs CBC & Chem 7: 12/08/19 03:48 12/08/19 03:48 Labs: Abnormal Lab Results - Last 24 Hours (Table) 12/07/19 12/07/19 12/08/19 Range/Units 17:55 23:06 03:48 RBC 1.98 L (4.30-5.90) m/uL Hgb 8.5 L (13.0-17.5) gm/dL Hct 27.0 L (39.0-53.0) % MCV 136.3 H (80.0-100.0) fL MCH 43.0 H (25.0-35.0) pg Plt Count 105 L (150-450) k/uL Macrocytosis Marked A Sodium (137-145) mmol/L Creatinine (0.66-1.25) mg/dL Glucose (74-99) mg/dL POC Glucose (mg/dL) 112 H 123 H (75-99) mg/dL Calcium (8.4-10.2) mg/dL Total Bilirubin (0.2-1.3) mg/dL AST (17-59) U/L ALT (4-49) U/L Alkaline Phosphatase (38-126) U/L Total Protein (6.3-8.2) g/dL Albumin (3.5-5.0) g/dL 12/08/19 12/08/19 Range/Units 03:48 11:36 RBC (4.30-5.90) m/uL Hgb (13.0-17.5) gm/dL Hct (39.0-53.0) % MCV (80.0-100.0) fL MCH (25.0-35.0) pg Plt Count (150-450) k/uL Macrocytosis Sodium 135 L (137-145) mmol/L Creatinine 0.47 L (0.66-1.25) mg/dL Glucose 107 H (74-99) mg/dL POC Glucose (mg/dL) 102 H (75-99) mg/dL Calcium 7.9 L (8.4-10.2) mg/dL Total Bilirubin 10.8 H (0.2-1.3) mg/dL AST 275 H (17-59) U/L ALT 140 H (4-49) U/L Alkaline Phosphatase 148 H (38-126) U/L Total Protein 5.1 L (6.3-8.2) g/dL Albumin 2.3 L (3.5-5.0) g/dL Assessment and Plan (1) Alcoholic hepatitis Narrative/Plan: 49-year-old male with long-standing history of alcohol abuse presenting due to alcohol withdrawal. Liver enzymes highly suggestive of acute alcoholic hepatitis with thrombocytopenia highly suggestive of portal hypertension and underlying cirrhosis. On presentation to bilirubin 10.2, alkaline phosphatase 193, AST 152 and ALT 73 with an INR of 2.4 and a platelet count of 103,000, with INR improved at 1.5 status post administration of vitamin K. Ultrasound of the abdomen showed a fatty liver with hepatomegaly. Patient has been drinking heavily for 12 years. He has noted jaundice and dark urine over the past week and has been going through alcohol withdrawal. Current Visit: Yes Status: Acute Code(s): K70.10 - ALCOHOLIC HEPATITIS WITHOUT ASCITES SNOMED Code(s): 817851065 (2) Alcohol withdrawal Current Visit: Yes Status: Acute Code(s): F10.239 - ALCOHOL DEPENDENCE WITH WITHDRAWAL, UNSPECIFIED SNOMED Code(s): 555453280 (3) Alcoholic cirrhosis Current Visit: Yes Status: Acute Code(s): K70.30 - ALCOHOLIC CIRRHOSIS OF LIVER WITHOUT ASCITES SNOMED Code(s): 785000417 Plan: Supportive care Clear liquid diet Continue monitor CBC, BMP, LFTs, INR Status post Vitamin K IV given for 3 doses Lactulose ordered twice a day Ammonia level within normal limits Viral hepatitis negative Ultrasound of the abdomen reviewed Continue to monitor for signs or symptoms of alcohol withdrawal Thank you for allowing us to participate in the care of the patient we will continue to follow
[2019-12-08 17:22] LABS: Glucose,Whole Blood 131 mg/dL (75-99)
[2019-12-09 00:14] LABS: Glucose,Whole Blood 112 mg/dL (75-99)
[2019-12-09] MEDS ORDERED: FUROSEMIDE 10 MG/ML 2 ML VIAL IV ONE ×2 (02:49→21:00)
[2019-12-09] MEDS: 1: MVI, ADULT NO.4 WITH VIT K 10 ML, THIAMINE 100 MG, FOLIC ACID 1 MG in SODIUM CHLORIDE IV SCH ×8 (02:58→18:29)
[2019-12-09] MEDS: LORazepam 2 MG/ML INJ IV PRN ×7 (05:14→22:13)
[2019-12-09 06:01] LABS: HCT 30.3 % (39.0-53.0); HGB 9.7 gm/dL (13.0-17.5); Hypochromasia Slight; MCHC 32.1 g/dL (31.0-37.0); Macrocytosis Marked; Mean Platelet Volume 9.3; Platelet Count 125 k/uL (150-450); RBC 2.25 m/uL (4.30-5.90); RDW 15.9 % (11.5-15.5)
[2019-12-09 06:09] LABS: MCH 43.4 pg (25.0-35.0); MCV 134.9 fL (80.0-100.0)
[2019-12-09 06:16] LABS: ALT 205 U/L (4-49); AST 379 U/L (17-59); African American GFR (CKD) >90 (>60 ml/min/1.73 sqM); Albumin 2.5 g/dL (3.5-5.0); Alkaline Phosphatase 166 U/L (38-126); Anion Gap 6 mmol/L; Blood Urea Nitrogen 8 mg/dL (9-20); Calcium 7.9 mg/dL (8.4-10.2); Carbon Dioxide 23 mmol/L (22-30); Chloride 107 mmol/L (98-107); Glucose 125 mg/dL (74-99); Non-African American GFR(CKD) >90 (>60 ml/min/1.73 sqM); Potassium 3.3 mmol/L (3.5-5.1); Sodium 136 mmol/L (137-145); Total Bilirubin 9.6 mg/dL (0.2-1.3); Total Protein 5.5 g/dL (6.3-8.2)
[2019-12-09 06:30] LABS: Band Neutrophils % 2 %; Neutrophils % (M) 62 %; Nucleated Red Blood Cells 5 /100 WBC (0-0); Total Cells Counted 200
[2019-12-09 06:31] LABS: Basophils # (M) 0.09 k/uL (0-0.2); Eosinophils # (M) 0.36 k/uL (0-0.7); Lymphocytes # (M) 1.53 k/uL (1.0-4.8); Monocytes # (M) 1.35 k/uL (0-1.0); Target Cells Present
[2019-12-09 06:32] LABS: Polychromasia Present
[2019-12-09] MEDS: POTASSIUM CHLORIDE 10 MEQ in WATER FOR INJECTION 1 100ML.BAG IVPB SCH ×4 (07:14→12:31)
[2019-12-09 07:30] LABS: Glucose,Whole Blood 132 mg/dL (75-99)
[2019-12-09] MEDS: LACTULOSE 20 GM/30 ML CUP PO SCH ×2 (08:02→19:36)
--- NOTE | 2019-12-09 08:30 | XR ---
EXAMINATION TYPE: XR chest 1V portable DATE OF EXAM: 12/09/2019 COMPARISON: Prior chest x-ray dated 12/05/2019 HISTORY: Shortness of breath TECHNIQUE: Single frontal view of the chest is obtained. FINDINGS: Patient is rotated. There are overlying cardiac leads. Retrocardiac density suspected. No evident pneumothorax or pleural effusion. Heart size is likely stable. IMPRESSION: Possible left lower lobe pneumonia versus atelectasis, patient is rotated. Follow-up PA and lateral chest x-ray of benefit.
[2019-12-09] MEDS: HEPARIN SODIUM,PORCINE 5,000 UNIT/ML 1 ML VIAL SQ SCH ×2 (08:41→19:29)
[2019-12-09] MEDS: PANTOPRAZOLE 40 MG/10 ML VIAL IV SCH ×2 (08:41→19:29)
[2019-12-09] MEDS: NICOTINE 21MG/24HR PATCH TRANSDERM SCH (08:42)
[2019-12-09] MEDS ORDERED: LORazepam 2 MG/ML INJ IV ONE (10:39)
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
--- NOTE | 2019-12-09 11:46 | XR ---
Left humerus HISTORY: Pain and tenderness 2 views of the left humerus, no comparisons Bone mineralization is maintained. Alignment is unremarkable. Question previous distal left clavicula r resection, correlate for patient's history. Visualized portions of the left lung are unremarkable. IMPRESSION: Unremarkable left humerus.
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
[2019-12-09] MEDS: ONDANSETRON 4 MG/2 ML VIAL IVP PRN (13:19)
[2019-12-09 14:55] VITALS: BMI 20.2
[2019-12-09 15:37] LABS: INR 1.2 (<1.2); Prothrombin Time 12.3 sec (9.0-12.0)
--- NOTE | 2019-12-09 18:38 | PN ---
PROGRESS NOTE DATE OF SERVICE: December 09, 2019 Patient is a 49-year-old pleasant white male with history of alcoholic hepatitis and alcoholic cirrhosis of the liver, admitted to the hospital with alcohol withdrawal and DTs. The patient is doing much better today. He is somewhat confused. He received some Ativan for agitation this morning. As per nursing staff, no acute events noted overnight. PHYSICAL EXAMINATION: Appears comfortable, no apparent distress. VITAL SIGNS: Stable. Blood pressure is 106/75, pulse rate 116, afebrile. HEENT examination unremarkable. Conjunctivae pink. Sclerae anicteric. Oral cavity no lesions. NECK: No JVD or lymph node enlargement. CHEST: Clear to auscultation. HEART: Regular rate and rhythm. ABDOMEN: Soft. There was slight tenderness in the right upper quadrant area. The rest of the abdomen was benign. EXTREMITIES: No pedal edema. NEURO: He is alert, oriented to name but not to place and time. LABORATORY DATA: On the labs from today: WBC 9, hemoglobin 9.7, platelets 125. AST, ALT and 379 and 205 respectively. Total bilirubin 7.9, alkaline phosphatase 166. IMPRESSION: 1. Alcoholic cirrhosis with portal hypertension. 2. Acute alcoholic hepatitis with gradually improving bilirubin. 3. Hepatic encephalopathy, resolving. 4. Alcohol withdrawal/delirium tremens, improving. RECOMMENDATIONS: 1. Continue with oral lactulose 30 mL 3 times daily and titrate so that he has 3-4 bowel movements daily. 2. Continue with treatment call for DTs. 3. Monitor labs on a daily basis. 4. Continue management by cotton picker. 5. We will follow with you closely. Thank you for this consultation. DAMION / TELLO: [id number] /
[2019-12-09 23:09] LABS: Glucose,Whole Blood 141 mg/dL (75-99)
[2019-12-10] MEDS: LORazepam 2 MG/ML INJ IV PRN ×4 (01:48→11:59)
[2019-12-10 04:56] LABS: Glucose,Whole Blood 170 mg/dL (75-99)
[2019-12-10 05:47] LABS: INR 1.3 (<1.2); Prothrombin Time 12.7 sec (9.0-12.0)
[2019-12-10 05:54] LABS: ALT 189 U/L (4-49); AST 257 U/L (17-59); African American GFR (CKD) >90 (>60 ml/min/1.73 sqM); Albumin 2.5 g/dL (3.5-5.0); Alkaline Phosphatase 184 U/L (38-126); Anion Gap 7 mmol/L; Blood Urea Nitrogen 6 mg/dL (9-20); Carbon Dioxide 25 mmol/L (22-30); Chloride 101 mmol/L (98-107); Glucose 115 mg/dL (74-99); Magnesium 1.6 mg/dL (1.6-2.3); Non-African American GFR(CKD) >90 (>60 ml/min/1.73 sqM); Potassium 3.5 mmol/L (3.5-5.1); Sodium 133 mmol/L (137-145); Total Bilirubin 10.2 mg/dL (0.2-1.3); Total Protein 5.5 g/dL (6.3-8.2)
[2019-12-10 06:07] LABS: HCT 29.3 % (39.0-53.0); HGB 9.4 gm/dL (13.0-17.5); Hypochromasia Moderate; MCHC 32.1 g/dL (31.0-37.0); Macrocytosis Marked; Mean Platelet Volume 9.5; Platelet Count 165 k/uL (150-450); RBC 2.18 m/uL (4.30-5.90); RDW 15.9 % (11.5-15.5)
[2019-12-10 06:08] LABS: MCH 43.2 pg (25.0-35.0); MCV 134.3 fL (80.0-100.0)
[2019-12-10 06:28] LABS: Band Neutrophils % 3 %; Eosinophils # (M) 0.11 k/uL (0-0.7); Lymphocytes # (M) 1.08 k/uL (1.0-4.8); Metamyelocytes # (M) 0.11 k/uL (0); Metamyelocytes % 1 %; Myelocytes # (M) 0.32 k/uL (0); Myelocytes % 3 %; Neutrophils % (M) 70 %; Nucleated Red Blood Cells 4 /100 WBC (0-0); Polychromasia Present; Total Cells Counted 200; WBC 10.8 k/uL (3.8-10.6)
[2019-12-10 06:29] LABS: Target Cells Present
[2019-12-10] MEDS: POTASSIUM BICARBONATE/CIT AC 20 MEQ TABLET.EFF NG-TUBE SCH ×2 (07:42→09:46)
[2019-12-10] MEDS: MAGNESIUM SULFATE-D5W PMX 1 GM in DEXTROSE/WATER 1 100ML.BAG IVPB SCH ×2 (07:42→09:47)
[2019-12-10] MEDS: LACTULOSE 20 GM/30 ML CUP PO SCH ×2 (09:20→21:56)
[2019-12-10] MEDS: PANTOPRAZOLE 40 MG/10 ML VIAL IV SCH (09:46)
[2019-12-10] MEDS: NICOTINE 21MG/24HR PATCH TRANSDERM SCH (09:46)
[2019-12-10] MEDS: HEPARIN SODIUM,PORCINE 5,000 UNIT/ML 1 ML VIAL SQ SCH ×2 (09:46→21:55)
[2019-12-10] MEDS ORDERED: guaiFENesin SYRUP 100MG/5ML 200 MG/10 ML CUP PO PRN (09:59)
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
[2019-12-10] MEDS: AMOXIC-POT CLAV 875-125MG 1 EACH TAB PO SCH ×2 (12:02→21:55)
--- NOTE | 2019-12-10 12:09 | PN ---
PROGRESS NOTE DATE OF SERVICE: 12/10/2019 Patient is a 49-year-old white male with history of severe alcohol abuse, admitted to the hospital with acute alcoholic hepatitis. Reports an alcoholic cirrhosis of the liver as well as alcohol withdrawal. He continues to remain in the intensive care unit. He is doing much better. He was given a dose of lactulose yesterday. He had several bowel movements last night. This morning, he is more awake and alert. He denies any symptoms. He reports no abdominal pain. No nausea, vomiting. He still continues to remain in restraints as he is slightly confused. PHYSICAL EXAMINATION: Appears comfortable, in no apparent distress. VITAL SIGNS: Stable. Blood pressure 112/82, pulse rate 101, temperature 98.2. HEENT: Examination unremarkable, conjunctivae are pink, sclerae nonicteric. Oral cavity no lesions. NECK: No JVD or lymph node enlargement. CHEST: Clear to auscultation. HEART: Regular rate and rhythm. ABDOMEN: Soft. Bowel sounds are positive. No organomegaly. EXTREMITIES: No pedal edema. SKIN: No rashes. NEURO: He is awake, but no not oriented to name or place. LABS: From today, BUN is 6, creatinine 0.5. Bilirubin is 10.2, AST 257, ALT 189, alkaline phosphatase is 184. WBC 10.8, hemoglobin 9.4, and platelets are normal and 165. IMPRESSION: 1. Acute alcoholic hepatitis superimposed on alcoholic cirrhosis of the liver with stable labs. 2. Acute alcoholic withdrawal with DTs, resolving. 3. Hepatic encephalopathy on oral lactulose, doing better. 4. Aspiration pneumonia on antibiotics. 5. History of heavy alcohol abuse. RECOMMENDATION: 1. Continue with symptomatic and supportive care. 2. Continue current protocol for alcohol withdrawal and DTs. 3. Lactulose as needed. 4. Monitor LFTs closely. 5. He can be transferred to the floor. 6. Low-salt diet. 7. Will follow with you closely. Thank you for this consultation. MMODL / IJN: [id number] /
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
[2019-12-10] MEDS: FUROSEMIDE 10 MG/ML 2 ML VIAL IV SCH ×2 (13:31→21:53)
[2019-12-10 16:44] LABS: Glucose,Whole Blood 136 mg/dL (75-99)
[2019-12-10] MEDS: 1: MVI, ADULT NO.4 WITH VIT K 10 ML, THIAMINE 100 MG, FOLIC ACID 1 MG in SODIUM CHLORIDE IV SCH ×12 (19:30→21:38)
[2019-12-10] MEDS: HALOPERIDOL LACTATE 5 MG/ML 1 ML VIAL IVP PRN (21:53)
[2019-12-10] MEDS: PANTOPRAZOLE 40 MG TABLET PO SCH (21:57)
[2019-12-10] MEDS: ONDANSETRON 4 MG/2 ML VIAL IVP PRN (22:01)
[2019-12-10 23:42] LABS: Glucose,Whole Blood 110 mg/dL (75-99)
[2019-12-11] MEDS: LORazepam 2 MG/ML INJ IV PRN ×2 (00:18→03:54)
[2019-12-11 05:26] LABS: Glucose,Whole Blood 100 mg/dL (75-99)
[2019-12-11 05:38] LABS: Basophils # (A) 0.1 k/uL (0-0.2); Basophils % (A) 1 %; Eosinophils # (A) 0.2 k/uL (0-0.7); Eosinophils % (A) 2 %; HCT 29.9 % (39.0-53.0); HGB 9.5 gm/dL (13.0-17.5); Hypochromasia Slight; Lymphocytes # (A) 1.5 k/uL (1.0-4.8); Lymphocytes % (A) 15 %; MCHC 31.7 g/dL (31.0-37.0); MCV 132.5 fL (80.0-100.0); Monocytes # (A) 1.1 k/uL (0-1.0); Monocytes % (A) 11 %; Neutrophils # (A) 6.6 k/uL (1.3-7.7); Neutrophils % (A) 67 %; Platelet Count 148 k/uL (150-450); RBC 2.26 m/uL (4.30-5.90); RDW 15.3 % (11.5-15.5); WBC 9.8 k/uL (3.8-10.6)
[2019-12-11 05:42] LABS: Macrocytosis Marked
[2019-12-11 05:46] LABS: ALT 159 U/L (4-49); AST 177 U/L (17-59); African American GFR (CKD) >90 (>60 ml/min/1.73 sqM); Albumin 2.4 g/dL (3.5-5.0); Alkaline Phosphatase 187 U/L (38-126); Anion Gap 6 mmol/L; Blood Urea Nitrogen 5 mg/dL (9-20); Calcium 7.8 mg/dL (8.4-10.2); Carbon Dioxide 27 mmol/L (22-30); Chloride 99 mmol/L (98-107); Glucose 97 mg/dL (74-99); Magnesium 1.8 mg/dL (1.6-2.3); Non-African American GFR(CKD) >90 (>60 ml/min/1.73 sqM); Potassium 3.4 mmol/L (3.5-5.1); Sodium 132 mmol/L (137-145); Total Bilirubin 8.6 mg/dL (0.2-1.3); Total Protein 5.3 g/dL (6.3-8.2)
[2019-12-11] MEDS ORDERED: Potassium Replacement Protocol 1 EACH MISC MISCELLANE PRN (06:18)
[2019-12-11] MEDS ORDERED: MAGNESIUM OXIDE 400 MG TAB PO STA (06:21)
[2019-12-11] MEDS: POTASSIUM CHLORIDE ER 20 MEQ TAB.ER PO SCH ×2 (06:55→06:56)
[2019-12-11 08:48] VITALS: RESP 18
[2019-12-11] MEDS: LACTULOSE 20 GM/30 ML CUP PO SCH (08:48)
[2019-12-11] MEDS: HEPARIN SODIUM,PORCINE 5,000 UNIT/ML 1 ML VIAL SQ SCH (08:49)
[2019-12-11] MEDS: NICOTINE 21MG/24HR PATCH TRANSDERM SCH (08:49)
[2019-12-11] MEDS: PANTOPRAZOLE 40 MG TABLET PO SCH (08:49)
[2019-12-11] MEDS: FUROSEMIDE 10 MG/ML 2 ML VIAL IV SCH (08:49)
[2019-12-11] MEDS: AMOXIC-POT CLAV 875-125MG 1 EACH TAB PO SCH (08:51)
[2019-12-11 12:07] LABS: Glucose,Whole Blood 124 mg/dL (75-99)
[2019-12-11 12:22] VITALS: BP 89/59; PULSE 95; TEMP 98
--- NOTE | 2019-12-11 12:43 | PN ---
PROGRESS NOTE DATE OF DICTATION: December 11, 2019 Patient is a 49-year-old pleasant white male with alcoholic cirrhosis of the liver, admitted to hospital with alcohol withdrawal and delirium tremens. He is doing much better. He still remains somewhat confused. No abdominal pain. No nausea, vomiting. PHYSICAL EXAMINATION: He appears comfortable. Vital signs are stable. Blood pressure 115/77, pulse 98, temperature 98.1. HEENT examination unremarkable. Conjunctivae pink. Sclerae anicteric. Oral cavity no lesions. NECK: No JVD or lymph node enlargement. CHEST: Clear to auscultation. HEART: Regular rate and rhythm. ABDOMEN: Soft. Mild tenderness in the epigastric area. EXTREMITIES: No pedal edema. NEURO: He is awake, slightly confused. LABS: From today WBC 9.8, hemoglobin 9.5, platelets 148. Basic metabolic panel is within normal limits. BUN 5, creatinine 0.58. T-bilirubin is 8.6, AST and ALT are 177 and 159 respectively, alkaline phosphatase is 187. IMPRESSION: 1. Alcoholic hepatitis with alcoholic cirrhosis of the liver with gradually improving bilirubin. 2. Alcohol withdrawal with delirium tremens, resolving. 3. Mild anemia and thrombocytopenia secondary to underlying chronic liver disease. Clinically no evidence of active bleeding. 4. Hepatic encephalopathy, resolved. RECOMMENDATION: 1. Continue with current management. 2. Advance diet to low-salt diet. 3. Monitor LFTs on a daily basis. 4. We will follow with you closely. Thank you for this consultation. MMODL / IJN: [id number] /
--- NOTE | 2019-12-11 13:38 | P.CN ---
Psychiatric Consult - . Consult date: 12/11/19 Consult:: IDENTIFYING DATA: He is a 49-year-old male admitted to medicine service for evaluation and treatment of acute alcohol withdrawal, alcohol hepatitis and alcoholic cirrhosis. He is transferred from medicine to ICU after developing al cohol withdrawal delirium. The hospitalist and a psychiatry consult to evaluate his alcohol use problems. HISTORY OF PRESENT ILLNESS: I reviewed the medical record and attempted to interview the patient. He was confused and had difficulty concentrating and attending to the interview. He admitted to alcohol use and talked about drinking anywhere from 1 pint to one fifth of liquor per day. He alleged that he's been doing this for 10 years and has no desire to stop using alcohol. He denies involvement with Alcoholics Anonymous. He talked about attending a residential substance abuse treatment that he called "[facility]" for 28 days. He did not like the experience and perseverated on returning to a substance abuse treatment program. He denied the use of drugs such as cocaine, methamphetamine, heroin, or opioid medications and marijuana. In the middle of the interview he complained of needing to "go to the bathroom". He sat up and peed in a water cup even to the urinal was next to the cup. PAST PSYCHIATRIC HISTORY: He denied a history of psychiatric hospitalizations or cycle patient psychiatric treatment.. PAST MEDICAL HISTORY: He denied history of medical problems.. ALLERGIES: On ALLERGIES.. SUBSTANCE USE HISTORY: As above FAMILY PSYCHIATRIC/SUBSTANCE USE HISTORY: He could not concentrate and attend on the interferon off to answer questions about his past history.. SOCIAL HISTORY: I was unable to obtain a comprehensive social assessment. MENTAL STATUS EXAM: He presented as a sedated 49-year-old male who was restless. He had great difficulty concentrating and attending to the interview. He was easily distracted. He made intermittent eye contact. He had a blunted facial expression. He was restless but showed no abnormal movements. Her speech was not spontaneous. He was dysarthric. His affect was labile but not intense and appropriate. He did not voice suicidal or homicidal ideation. He did not express feelings of hopelessness or helplessness. He did not express ideas reference, paranoid ideation or delusions. His thinking was concrete and associations were not coherent, logical organized and goal directed. He denied hallucinations and did not appear to be responding to internal stimuli to temporarily interview. He was oriented to person, place and time. He was unable to attend to the remainder of the mental status exam. IMPRESSIONS: He has a history of an alcohol use disorder is currently experiencing severe alcohol withdrawal, cocaine and by delirium. As result of delirium he is able concentrate and attend to the full psychiatric interview. However, given his history of chronic heavy alcohol use he would benefit from participation in the residential substance abuse treatment program. PLAN: There is no indication for transfer to the psychiatric unit. There is no indication for referral for outpatient mental health services at this time. Once the delirium resolves provide encourage him to call [facility] and arrange for residential substance abuse treatment. Thank you for this consult. Psychiatry will sign off on the case.. 12/11/19 13:27
--- NOTE | 2019-12-11 14:47 | P.DS ---
Providers Date of admission: 12/05/19 10:07 Attending physician: Srinivasa Hyman MD Consults: 12/05/19 10:08 Consult Physician Urgent Consulting Provider: Nguyễn Alexander Consult Reason/Comments: Acute alcoholic cirrhosis, alcohol withdrawal Do you want consulting provider notified?: Yes 12/06/19 15:31 Consult Physician Urgent Consulting Provider: Ofelia Reyes Consult Reason/Comments: ams Do you want consulting provider notified?: Already Contacted 12/10/19 16:42 Consult Physician Routine Consulting Provider: Aftab Gottlieb Consult Reason/Comments: alcohol support Do you want consulting provider notified?: Yes, Notify in am Primary care physician: Stated None Hospital Course: Patient is leaving AGAINST MEDICAL ADVICE Patient Condition at Discharge: Serious Plan - Discharge Summary Discharge Rx Participant: Yes New Discharge Prescriptions: New Spironolactone [Aldactone] 50 mg PO DAILY #30 tab Lactulose [Cephulac] 20 gm PO BID #100 ml Potassium Chloride ER [K-Dur 10] 10 meq PO DAILY #30 tab Furosemide [Lasix] 20 mg PO BID #60 tab chlordiazePOXIDE HCl [Librium] 25 mg PO QID 3 Days #14 capsule Magnesium Oxide [Mag-Ox] 400 mg PO DAILY #30 tab Famotidine [Pepcid] 20 mg PO BID #30 tablet Thiamine [Vitamin B-1] 100 mg PO DAILY #30 tablet Discharge Medication List Famotidine [Pepcid] 20 mg PO BID #30 tablet 12/11/19 [Rx] Furosemide [Lasix] 20 mg PO BID #60 tab 12/11/19 [Rx] Lactulose [Cephulac] 20 gm PO BID #100 ml 12/11/19 [Rx] Magnesium Oxide [Mag-Ox] 400 mg PO DAILY #30 tab 12/11/19 [Rx] Potassium Chloride ER [K-Dur 10] 10 meq PO DAILY #30 tab 12/11/19 [Rx] Spironolactone [Aldactone] 50 mg PO DAILY #30 tab 12/11/19 [Rx] Thiamine [Vitamin B-1] 100 mg PO DAILY #30 tablet 12/11/19 [Rx] chlordiazePOXIDE HCl [Librium] 25 mg PO QID 3 Days #14 capsule 12/11/19 [Rx] Follow up Appointment(s)/Referral(s): Leona Hyde MD [REFERRING] - 1 Week Kathrin Navarrete MD [STAFF PHYSICIAN] - 1 Week
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
[2019-12-12] MEDS ORDERED: MAGNESIUM OXIDE 400 MG TAB PO SCH (09:00)
== END 2019-12-11 15:58 | disposition left against medical advice (07) | DRG 441 ==
LOC: EC 07:14 → 5NMEDONC 10:07 → 2SICU 12-06 15:29
PROVIDERS: ADMIT Internal Medicine; ATTEND Internal Medicine
DX: K72.90 Hepatic failure, unspecified without coma (principal); G93.41 Metabolic encephalopathy; E87.1 Hypo-osmolality and hyponatremia; F10.231 Alcohol dependence with withdrawal delirium; K76.6 Portal hypertension; D68.9 Coagulation defect, unspecified; K70.30 Alcoholic cirrhosis of liver without ascites; K70.10 Alcoholic hepatitis without ascites; D69.59 Other secondary thrombocytopenia; K76.0 Fatty (change of) liver, not elsewhere classified; D64.9 Anemia, unspecified; F17.210 Nicotine dependence, cigarettes, uncomplicated; W18.30XA Fall on same level, unspecified, initial encounter; S50.811A Abrasion of right forearm, initial encounter; F12.90 Cannabis use, unspecified, uncomplicated; E16.2 Hypoglycemia, unspecified; T42.4X5A Adverse effect of benzodiazepines, initial encounter; E87.70 Fluid overload, unspecified; Z11.59 Encounter for screening for other viral diseases; Z80.9 Family history of malignant neoplasm, unspecified
CPT/HCPCS: 36415; 70450; 71045; 74018; 76705; 80053; 80074; 80076; 81003; 82140; 82150; 83690; 83735; 84132; 85025; 85027; 85610; 85730; 87635; 96361; 96374; 96375; 99285

== ENCOUNTER 2020-09-16 11:45 | Inpatient (IN) | payer BC ==
[2020-09-16] MEDS ORDERED: SODIUM CHLORIDE 0.9% 500 ML 500 ML IV STA (12:04)
[2020-09-16] MEDS ORDERED: THIAMINE 100 MG/ML 2 ML VIAL IM STA (12:04)
[2020-09-16] MEDS ORDERED: LORazepam 2 MG/ML INJ IV STA (12:04)
[2020-09-16] MEDS ORDERED: FAMOTIDINE 20 MG/2 ML VIAL IV STA (12:05)
--- NOTE | 2020-09-16 12:08 | ED ---
General Adult HPI - General Chief complaint: Alcohol Stated complaint: Alcohol withdrawal Time Seen by Provider: 09/16/20 11:54 Source: patient, family, RN notes reviewed Mode of arrival: ambulatory Limitations: no limitations - History of Present Illness Initial comments: Patient is a pleasant 50-year-old male presenting to the emergency Department with complaints of concerns for alcohol withdrawal. Patient states he wants to quit. Last drink was around 5 PM yesterday. Patient usually drinks one to 2 pints of alcohol daily. No suicidal ideation. No hallucinations. Patient feels shaky and tingly all over. - Related Data Previous Rx's Medication Instructions Recorded Famotidine [Pepcid] 20 mg PO BID #30 tablet 12/11/19 Furosemide [Lasix] 20 mg PO BID #60 tab 12/11/19 Lactulose [Cephulac] 20 gm PO BID #100 ml 12/11/19 Magnesium Oxide [Mag-Ox] 400 mg PO DAILY #30 tab 12/11/19 Potassium Chloride ER [K-Dur 10] 10 meq PO DAILY #30 tab 12/11/19 Spironolactone [Aldactone] 50 mg PO DAILY #30 tab 12/11/19 Thiamine [Vitamin B-1] 100 mg PO DAILY #30 tablet 12/11/19 chlordiazePOXIDE HCl [Librium] 25 mg PO QID 3 Days #14 capsule 12/11/19 Allergies Allergy/AdvReac Type Severity Reaction Status Date / Time No Known Allergies Allergy Verified 09/16/20 11:51 Review of Systems ROS Statement: Those systems with pertinent positive or pertinent negative responses have been documented in the HPI. ROS Other: All systems not noted in ROS Statement are negative. Constitutional: Denies: fever Eyes: Denies: eye pain ENT: Denies: ear pain Respiratory: Denies: cough Cardiovascular: Denies: chest pain Endocrine: Denies: fatigue Gastrointestinal: Reports: other (Loss of appetite) Genitourinary: Denies: dysuria Musculoskeletal: Denies: back pain Skin: Denies: rash Neurological: Denies: weakness Psychiatric: Reports: anxiety. Denies: suicidal thoughts Past Medical History Past Medical History: Liver Disease Additional Past Medical History / Comment(s): alcoholic cirrhosis History of Any Multi-Drug Resistant Organisms: None Reported Past Surgical History: No Surgical Hx Reported Past Anesthesia/Blood Transfusion Reactions: No Reported Reaction Past Psychological History: No Psychological Hx Reported Smoking Status: Current every day smoker Past Alcohol Use History: Abuse, Daily, Heavy Past Drug Use History: Marijuana - Past Family History Father Family Medical History: Cancer General Exam Limitations: no limitations General appearance: alert, anxious Head exam: Present: normocephalic Eye exam: Present: normal appearance Neck exam: Present: normal inspection Respiratory exam: Present: normal lung sounds bilaterally Cardiovascular Exam: Present: tachycardia GI/Abdominal exam: Present: soft. Absent: tenderness Extremities exam: Present: normal inspection Neurological exam: Present: alert Psychiatric exam: Present: anxious Skin exam: Present: normal color Course Vital Signs 09/16/20 09/16/20 09/16/20 11:48 12:47 12:50 Temperature 98.4 F Pulse Rate 106 H 98 Respiratory 16 22 Rate Blood Pressure 158/101 148/100 O2 Sat by Pulse 98 95 99 Oximetry 09/16/20 13:00 Temperature Pulse Rate 90 Respiratory 20 Rate Blood Pressure 148/100 O2 Sat by Pulse 96 Oximetry Medical Decision Making - Medical Decision Making Patient reevaluated and still with tremors. Patient still not feeling well. Case discussed with Dr. Wolff, covering for Dr. Huff, who admits for Dr. patterson - Lab Data Result diagrams: 09/16/20 12:26 09/16/20 12:26 Lab Results 09/16/20 09/16/20 09/16/20 Range/Units 12:26 12:26 12:26 WBC 7.0 (3.8-10.6) k/uL RBC 4.79 (4.30-5.90) m/uL Hgb 17.7 H (13.0-17.5) gm/dL Hct 51.5 (39.0-53.0) % MCV 107.4 H (80.0-100.0) fL MCH 37.0 H (25.0-35.0) pg MCHC 34.4 (31.0-37.0) g/dL RDW 12.0 (11.5-15.5) % Plt Count 204 (150-450) k/uL MPV 7.6 Neutrophils % 71 % Lymphocytes % 18 % Monocytes % 8 % Eosinophils % 1 % Basophils % 2 % Neutrophils # 4.9 (1.3-7.7) k/uL Lymphocytes # 1.2 (1.0-4.8) k/uL Monocytes # 0.5 (0-1.0) k/uL Eosinophils # 0.1 (0-0.7) k/uL Basophils # 0.2 (0-0.2) k/uL Macrocytosis Moderate PT 12.3 H (9.0-12.0) sec INR 1.2 H (<1.2) Sodium 135 L (137-145) mmol/L Potassium 3.9 (3.5-5.1) mmol/L Chloride 96 L (98-107) mmol/L Carbon Dioxide 26 (22-30) mmol/L Anion Gap 13 mmol/L BUN 3 L (9-20) mg/dL Creatinine 0.66 (0.66-1.25) mg/dL Est GFR (CKD-EPI)AfAm >90 (>60 ml/min/1.73 sqM) Est GFR (CKD-EPI)NonAf >90 (>60 ml/min/1.73 sqM) Glucose 141 H (74-99) mg/dL Calcium 9.4 (8.4-10.2) mg/dL Magnesium 1.0 L (1.6-2.3) mg/dL Total Bilirubin 1.7 H (0.2-1.3) mg/dL AST 245 H (17-59) U/L ALT 65 H (4-49) U/L Alkaline Phosphatase 191 H (38-126) U/L Total Protein 7.7 (6.3-8.2) g/dL Albumin 4.5 (3.5-5.0) g/dL Amylase 60 (30-110) U/L Lipase 85 (23-300) U/L Serum Alcohol <10 mg/dL Disposition Clinical Impression: Alcohol withdrawal, Hypomagnesemia Disposition: ADMITTED IP TO THIS HOSP Is patient prescribed a controlled substance at d/c from ED?: No Referrals: Jhon Patterson MD [Primary Care Provider] - 1-2 days Decision Time: 13:12
[2020-09-16 12:34] LABS: Basophils # (A) 0.2 k/uL (0-0.2); Basophils % (A) 2 %; Eosinophils # (A) 0.1 k/uL (0-0.7); Eosinophils % (A) 1 %; HCT 51.5 % (39.0-53.0); HGB 17.7 gm/dL (13.0-17.5); Lymphocytes # (A) 1.2 k/uL (1.0-4.8); Lymphocytes % (A) 18 %; MCHC 34.4 g/dL (31.0-37.0); MCV 107.4 fL (80.0-100.0); Macrocytosis Moderate; Mean Platelet Volume 7.6; Monocytes # (A) 0.5 k/uL (0-1.0); Monocytes % (A) 8 %; Neutrophils # (A) 4.9 k/uL (1.3-7.7); Neutrophils % (A) 71 %; Platelet Count 204 k/uL (150-450); RBC 4.79 m/uL (4.30-5.90)
[2020-09-16 12:38] LABS: INR 1.2 (<1.2); Prothrombin Time 12.3 sec (9.0-12.0)
[2020-09-16 12:42] LABS: ALT 65 U/L (4-49); AST 245 U/L (17-59); African American GFR (CKD) >90 (>60 ml/min/1.73 sqM); Albumin 4.5 g/dL (3.5-5.0); Alcohol <10 mg/dL; Alkaline Phosphatase 191 U/L (38-126); Amylase 60 U/L (30-110); Anion Gap 13 mmol/L; Blood Urea Nitrogen 3 mg/dL (9-20); Calcium 9.4 mg/dL (8.4-10.2); Carbon Dioxide 26 mmol/L (22-30); Chloride 96 mmol/L (98-107); Glucose 141 mg/dL (74-99); Lipase 85 U/L (23-300); Non-African American GFR(CKD) >90 (>60 ml/min/1.73 sqM); Potassium 3.9 mmol/L (3.5-5.1); Sodium 135 mmol/L (137-145); Total Bilirubin 1.7 mg/dL (0.2-1.3); Total Protein 7.7 g/dL (6.3-8.2)
[2020-09-16] MEDS ORDERED: MAGNESIUM OXIDE 400 MG TAB PO STA (13:13)
[2020-09-16] MEDS ORDERED: NALOXONE 0.4 MG/ML 1 ML VIAL IV PRN (13:14)
[2020-09-16] MEDS ORDERED: LORazepam 2 MG/ML INJ IV PRN ×2 (13:14)
[2020-09-16] MEDS: SODIUM CHLORIDE 0.9% 1,000 ML IV SCH (13:31)
[2020-09-16] MEDS: MAGNESIUM SULFATE-D5W PMX 1 GM in DEXTROSE/WATER 1 100ML.BAG IVPB SCH ×2 (13:34→14:53)
[2020-09-16] MEDS ORDERED: diazePAM 5 MG TAB PO STA (16:12)
--- NOTE | 2020-09-16 16:13 | P.HPIM ---
History of Present Illness This is a pleasant 50 years old male with past medical history of IV alcohol abuse and alcoholic liver disease. He presents because of signs and symptoms of alcohol withdrawal. Patient states that he drinks about 1.5 pint of liquor every day occasionally beers unknown winds. He wanted to quit because he wants to keep himself healthy. His last drink was one day earlier at 5 PM. Is complaining of from anxiety, sweating, shakiness and tremor with sweating but denies visual or auditory hallucination He denies chest pain dyspnea or coughing. No abdominal pain, Also complains from diarrhea about 3-4 times today with no blood, no blood. He had some very umbilical abdominal discomfort which is improved now No fever. Also he denies depression or suicidal ideation stating that he has children and he will not go through this, stating he did not have depression or suicidal ideation before. Patient smokes about 1-1.5 pack per day, he counseled to quit and he does not want this now however he agrees to nicotine patch and also he smokes marijuana Vitals are stable. unremarkable cbc, hemoglobin 17 which looks concentrated sample inr 1.2. sodium 135. liver enzymes are elevated with ast more than alt as ast is 245 and alt 65 which causes with alcoholic hepatitis. bilirubin is 1.7, magnesium is 1.0. alcohol level less than 10. coronavirus not detected. Review of Systems CONSTITUTIONAL: No fever, no malaise, no fatigue. HEENT: No recent visual problems or hearing problems. Denied any sore throat. CARDIOVASCULAR: No orthopnea, PND, no palpitations, no syncope. PULMONARY: No shortness of breath, no cough, no hemoptysis. GASTROINTESTINAL: No diarrhea, no nausea, no vomiting, no abdominal pain. Normoactive bowel sounds. NEUROLOGICAL: No headaches, no weakness, no numbness. HEMATOLOGICAL: Denies any bleeding or petechiae. GENITOURINARY: Denies any burning micturition, frequency, or urgency. MUSCULOSKELETAL/RHEUMATOLOGICAL: Denies any joint pain, swelling, or any muscle pain. ENDOCRINE: Denies any polyuria or polydipsia. Past Medical History Past Medical History: Liver Disease Additional Past Medical History / Comment(s): alcoholic cirrhosis History of Any Multi-Drug Resistant Organisms: None Reported Past Surgical History: No Surgical Hx Reported Past Anesthesia/Blood Transfusion Reactions: No Reported Reaction Past Psychological History: No Psychological Hx Reported Smoking Status: Current every day smoker Past Alcohol Use History: Abuse, Daily, Heavy Past Drug Use History: Marijuana - Past Family History Father Family Medical History: Cancer Medications and Allergies Home Medications Medication Instructions Recorded Confirmed Type Magnesium Oxide [Mag-Ox] 400 mg PO DAILY #30 tab 12/11/19 09/16/20 Rx Spironolactone [Aldactone] 50 mg PO DAILY #30 tab 12/11/19 09/16/20 Rx Thiamine [Vitamin B-1] 100 mg PO DAILY #30 tablet 12/11/19 09/16/20 Rx Famotidine [Pepcid] 20 mg PO HS PRN 09/16/20 09/16/20 History PARoxetine [Paxil] 20 mg PO DAILY 09/16/20 09/16/20 History Sildenafil Citrate 100 mg PO DAILY PRN 09/16/20 09/16/20 History Allergies Allergy/AdvReac Type Severity Reaction Status Date / Time No Known Allergies Allergy Verified 09/16/20 13:32 Physical Exam Vitals: Vital Signs Temp Pulse Pulse Resp BP BP Pulse Ox 09/16/20 15:07 98.6 F 88 16 147/83 98 09/16/20 14:56 97.9 F 80 18 137/87 98 09/16/20 14:30 98.0 F 78 18 140/95 97 09/16/20 14:00 95 20 140/97 09/16/20 13:00 90 20 148/100 96 09/16/20 12:50 98 22 148/100 99 09/16/20 12:47 95 09/16/20 11:48 98.4 F 106 H 16 158/101 98 Intake and Output 09/16/20 09/16/20 09/16/20 06:59 14:59 22:59 Other: Weight 61.235 kg GENERAL: The patient is alert and oriented x3, not in any acute distress. Well developed, well nourished. HEENT: Pupils are round and equally reacting to light. EOMI. No scleral icterus. No conjunctival pallor. Normocephalic, atraumatic. No pharyngeal erythema. No thyromegaly. CARDIOVASCULAR: S1 and S2 present. No murmurs, rubs, or gallops. PULMONARY: Chest is clear to auscultation, no wheezing or crackles. ABDOMEN: Soft, nontender, nondistended, normoactive bowel sounds. No palpable organomegaly. MUSCULOSKELETAL: No joint swelling or deformity. EXTREMITIES: No cyanosis, clubbing, or pedal edema. NEUROLOGICAL: Gross neurological examination did not reveal any focal deficits. SKIN: No rashes. No petechiae Results CBC & Chem 7: 09/16/20 12:26 09/16/20 12: Labs: Abnormal Lab Results - Last 24 Hours (Table) 09/16/20 09/16/20 09/16/20 Range/Units 12:26 12:26 12:26 Hgb 17.7 H (13.0-17.5) gm/dL MCV 107.4 H (80.0-100.0) fL MCH 37.0 H (25.0-35.0) pg PT 12.3 H (9.0-12.0) sec INR 1.2 H (<1.2) Sodium 135 L (137-145) mmol/L Chloride 96 L (98-107) mmol/L BUN 3 L (9-20) mg/dL Glucose 141 H (74-99) mg/dL Magnesium 1.0 L (1.6-2.3) mg/dL Total Bilirubin 1.7 H (0.2-1.3) mg/dL AST 245 H (17-59) U/L ALT 65 H (4-49) U/L Alkaline Phosphatase 191 H (38-126) U/L Assessment and Plan Assessment: Alcohol withdrawal with delirium tremens Nicotine dependence Substance abuse with marijuana Alcoholic hepatitis with jaundice Severe hypomagnesemia Dehydration History of Hepatomegaly with fatty infiltration of the liver, highly concerning for alcoholic liver cirrhosis History of Anemia and Thrombocytopenia Plan: This is a pleasant 50 years old male who presents with alcohol abuse and withdrawal. Continue with CIWA protocol and thiamine. Continue with IV hydration. Replace electrolytes especially magnesium and potassium with monitoring. Nicotine patch. Continue with IV hydration Labs and medication were reviewed.. Continue same treatment. Continue with symptomatic treatment. Resume home medication. Monitor lytes and vitals. DVT and GI prophylaxis. Further recommendations depends on the clinical course of the patient DVT prophylaxis: Subcutaneous heparin GI Prophylaxis: Pepcid
[2020-09-16] MEDS: NICOTINE 14MG/24HR PATCH TRANSDERM SCH (17:48)
[2020-09-16] MEDS: MAGNESIUM OXIDE 400 MG TAB PO SCH ×2 (17:48→20:45)
[2020-09-16] MEDS: THIAMINE 100 MG TAB PO SCH (17:48)
[2020-09-16] MEDS: FAMOTIDINE 20 MG/2 ML VIAL IV SCH (20:45)
[2020-09-16] MEDS ORDERED: HEPARIN SODIUM,PORCINE 5,000 UNIT/ML 1 ML VIAL SQ SCH (21:00)
[2020-09-16] MEDS ORDERED: MAGNESIUM SULFATE-D5W PMX 1 GM in DEXTROSE/WATER 1 100ML.BAG IVPB ONE (21:45)
[2020-09-16] MEDS ORDERED: Potassium Replacement Protocol 1 EACH MISC MISCELLANE PRN (21:47)
[2020-09-16] MEDS ORDERED: Magnesium Replacement Protocol 1 EACH MISC MISCELLANE PRN (21:47)
[2020-09-17] MEDS: SODIUM CHLORIDE 0.9% 1,000 ML IV SCH ×3 (04:11→22:18)
[2020-09-17] MEDS: MAGNESIUM OXIDE 400 MG TAB PO SCH ×5 (09:30→22:13)
[2020-09-17] MEDS: FAMOTIDINE 20 MG/2 ML VIAL IV SCH (09:30)
[2020-09-17] MEDS: THIAMINE 100 MG TAB PO SCH ×2 (09:30→16:58)
[2020-09-17] MEDS: ENOXAPARIN 40 MG/0.4 ML SYRINGE SQ SCH (09:30)
[2020-09-17] MEDS: MULTIVITAMINS, THERA 1 EACH TAB PO SCH (09:30)
[2020-09-17] MEDS: NICOTINE 14MG/24HR PATCH TRANSDERM SCH (09:31)
[2020-09-17] MEDS: PARoxetine 20 MG TAB PO SCH (09:32)
[2020-09-17] MEDS: LORazepam 2 MG/ML INJ IV PRN ×3 (09:48→22:13)
[2020-09-17 09:58] LABS: African American GFR (CKD) 129.3 (60.0-200.0); Albumin 3.4 g/dL (3.80-4.90); Albumin/Globulin Ratio 1.55 (1.60-3.17); Anion Gap 6.2 mmol/L (4.00-12.00); BUN/Creat Ratio 7.14 Ratio (12.00-20.00); Calcium 8.1 mg/dL (8.7-10.3); Carbon Dioxide 27.8 mmol/L (21.6-31.8); Globulin 2.2 g/dL (1.6-3.3); Magnesium 2.3 mg/dL (1.5-2.4); Non-African American GFR(CKD) 111.6 (60.0-200.0); Potassium 3.8 mmol/L (3.5-5.5); Total Bilirubin 1.9 mg/dL (0.2-1.2); Total Protein 5.6 g/dL (6.2-8.2)
[2020-09-17] MEDS ORDERED: GABAPENTIN 300 MG CAP PO STA (12:50)
[2020-09-17] MEDS ORDERED: ONDANSETRON 4 MG TAB PO STA (12:51)
[2020-09-17] MEDS ORDERED: CALCIUM CARBONATE 500 MG CHEWABLE PO PRN (12:52)
[2020-09-17] MEDS ORDERED: diazePAM 5 MG TAB PO STA (12:53)
--- NOTE | 2020-09-17 12:59 | P.PN ---
Subjective This is a pleasant 50 years old male with past medical history of IV alcohol abuse and alcoholic liver disease. He presents because of signs and symptoms of alcohol withdrawal. Patient states that he drinks about 1.5 pint of liquor every day occasionally beers unknown winds. He wanted to quit because he wants to keep himself healthy. His last drink was one day earlier at 5 PM. Is complaining of from anxiety, sweating, shakiness and tremor with sweating but denies visual or auditory hallucination He denies chest pain dyspnea or coughing. No abdominal pain, Also complains from diarrhea about 3-4 times today with no blood, no blood. He had some very umbilical abdominal discomfort which is improved now No fever. Also he denies depression or suicidal ideation stating that he has children and he will not go through this, stating he did not have depression or suicidal ideation before. Patient smokes about 1-1.5 pack per day, he counseled to quit and he does not want this now however he agrees to nicotine patch and also he smokes marijuana Vitals are stable. unremarkable cbc, hemoglobin 17 which looks concentrated sample inr 1.2. sodium 135. liver enzymes are elevated with ast more than alt as ast is 245 and alt 65 which causes with alcoholic hepatitis. bilirubin is 1.7, magnesium is 1.0. alcohol level less than 10. coronavirus not detected. 09/17/2020 This is a pleasant 50 years old male who presents with alcohol withdrawal, today his more relaxed, history of have a tremor in his upper and lower extremities but definitely significantly less compared to yesterday. He still feeling jittery and anxious, also he feels some nausea and anxiety and whenever he eats he feels like vomiting so he try to avoid eating. He also was complaining of from diarrhea, he had 2 this morning the total amount brown with no blood. His electrolytes and creatinine are normal. Liver enzymes are trending down. Bilirubin is 1.9. Also he states that he has some graving for alcohol and smoking. He already has nicotine patch we will add gabapentin to hold him with his grieving Also we will change Pepcid to Protonix for possible alcoholic gastritis, and Tums later He is on CIWA protocol, his score this Morning was 2 and increased to 11 later on during the day. 1 dose of Valium is added. Continue with normal saline. Continue with vitamins No depression or suicidal ideation monitor hemoglobin tomorrow Review of Systems CONSTITUTIONAL: No fever, no malaise, no fatigue. HEENT: No recent visual problems or hearing problems. Denied any sore throat. CARDIOVASCULAR: No orthopnea, PND, no palpitations, no syncope. PULMONARY: No shortness of breath, no cough, no hemoptysis. GASTROINTESTINAL: No diarrhea, no nausea, no vomiting, no abdominal pain. Normoactive bowel sounds. NEUROLOGICAL: No headaches, no weakness, no numbness. Active Medications Generic Name Dose Route Start Last Admin Trade Name Freq PRN Reason Stop Dose Admin Enoxaparin Sodium 40 mg 09/17/20 09:00 09/17/20 09:30 Enoxaparin 40 Mg/0.4 Ml Syringe SQ 40 mg DAILY PRAVEEN Administration Famotidine 20 mg 09/16/20 21:00 09/17/20 09:30 Famotidine 20 Mg/2 Ml Vial IV 20 mg Q12HR PRAVEEN Administration Gabapentin 300 mg 09/17/20 12:50 Gabapentin 300 Mg Cap PO 09/17/20 12:51 ONCE STA Gabapentin 100 mg 09/17/20 16:00 Gabapentin 100 Mg Cap PO TID PRAVEEN Sodium Chloride 1,000 mls @ 75 mls/hr 09/16/20 13:15 09/17/20 04:11 Saline 0.9% IV Not Given .[id number] PRAVEEN Lorazepam 1 mg 09/16/20 13:14 Lorazepam 2 Mg/Ml Inj IV Q2HR PRN CIWA 8 or 9 Lorazepam 1 mg 09/16/20 13:14 09/17/20 09:48 Lorazepam 2 Mg/Ml Inj IV 1 mg Q1HR PRN Administration CIWA 10 to 15 Lorazepam 2 mg 09/16/20 13:14 Lorazepam 2 Mg/Ml Inj IV 09/18/20 13:14 Q10M PRN CIWA 16 or higher Lorazepam 2 mg 09/16/20 13:14 Lorazepam 2 Mg/Ml Inj IV Q6HR PRN Seizures Magnesium Oxide 400 mg 09/16/20 16:00 09/17/20 09:30 Magnesium Oxide 400 Mg Tab PO 400 mg TID PRAVEEN Administration Miscellaneous Information 1 each 09/16/20 21:47 Magnesium Replacement Protocol 1 Each Misc MISCELLANE DAILY PRN Per Protocol Protocol Miscellaneous Information 1 each 09/16/20 21:47 Potassium Replacement Protocol 1 Each Misc MISCELLANE DAILY PRN Per Protocol Protocol Multivitamins 1 each 09/17/20 09:00 09/17/20 09:30 Multivitamins, Thera 1 Each Tab PO 1 each DAILY PRAVEEN Administration Naloxone HCl 0.2 mg 09/16/20 13:14 Naloxone 0.4 Mg/Ml 1 Ml Vial IV Q2M PRN Opioid Reversal Nicotine 1 patch 09/16/20 17:15 09/17/20 09:31 Nicotine 14mg/24hr Patch TRANSDERM 1 patch DAILY PRAVEEN Administration Paroxetine HCl 20 mg 09/17/20 09:00 09/17/20 09:32 Paroxetine 20 Mg Tab PO 20 mg DAILY PRAVEEN Administration Thiamine HCl 100 mg 09/16/20 17:30 09/17/20 09:30 Thiamine 100 Mg Tab PO 100 mg BID-W/MEALS PRAVEEN Administration Objective - Vital Signs Vital signs: Vital Signs Temp 98.0 F 09/17/20 04:36 Pulse 84 09/17/20 04:36 Resp 16 09/17/20 04:36 BP 150/92 09/17/20 04:36 Pulse Ox 98 09/17/20 04:36 Intake & Output 09/16/20 09/17/20 09/17/20 18:59 06:59 18:59 Intake Total 300 1000 Balance 300 1000 Weight 61.235 kg Intake: Intake, IV Titration 300 1000 Amount Magnesium Sulfate-D5w Pmx 100 1 gm In Dextrose/Water 1 100ml.bag @ 100 mls/hr IVPB ONCE ONE Rx#: [id number] Sodium Chloride 0.9% 1, 300 900 000 ml @ 75 mls/hr IV . [id number] [facility] Rx#:[id number] Other: Voiding Method Toilet # Voids 3 1 # Bowel Movements 1 0 - Exam -GENERAL: The patient is alert and oriented x3, not in any acute distress. Shaky with a tremor HEENT: Pupils are round and equally reacting to light. EOMI. No scleral icterus. No conjunctival pallor. Normocephalic, atraumatic. No pharyngeal erythema. No thyromegaly. CARDIOVASCULAR: S1 and S2 present. No murmurs, rubs, or gallops. PULMONARY: Chest is clear to auscultation, no wheezing or crackles. ABDOMEN: Soft, nontender, nondistended, normoactive bowel sounds. No palpable organomegaly. MUSCULOSKELETAL: No joint swelling or deformity. EXTREMITIES: No cyanosis, clubbing, or pedal edema. NEUROLOGICAL: Gross neurological examination did not reveal any focal deficits. SKIN: No rashes. no petechiae. - Labs CBC & Chem 7: 09/16/20 12:26 09/17/20 05:51 Labs: Abnormal Lab Results - Last 24 Hours (Table) 09/16/20 09/17/20 Range/Units 12:26 05:51 Sodium 135 L (137-145) mmol/L Chloride 96 L (98-107) mmol/L BUN 3 L 5.0 L (9-20) mg/dL BUN/Creatinine Ratio 7.14 L (12.00-20.00) Ratio Glucose 141 H (74-99) mg/dL Calcium 8.1 L (8.7-10.3) mg/dL Magnesium 1.0 L (1.6-2.3) mg/dL Total Bilirubin 1.7 H 1.9 H (0.2-1.3) mg/dL AST 245 H 122 H (17-59) U/L ALT 65 H (4-49) U/L Alkaline Phosphatase 191 H 157 H (38-126) U/L Total Protein 5.6 L (6.2-8.2) g/dL Albumin 3.40 L (3.80-4.90) g/dL Albumin/Globulin Ratio 1.55 L (1.60-3.17) g/dL Assessment and Plan Assessment: Alcohol withdrawal with delirium tremens possible alcoholic gastritis Nicotine dependence Substance abuse with marijuana Alcoholic hepatitis with jaundice Severe hypomagnesemia Dehydration. Mild protein calorie malnutrition History of Hepatomegaly with fatty infiltration of the liver, highly concerning for alcoholic liver cirrhosis History of Anemia and Thrombocytopenia Plan: This is a pleasant 50 years old male who presents with alcohol abuse and withdrawal. Continue with CIWA protocol and thiamine. Continue with IV hydration. Replace electrolytes especially magnesium and potassium with monitoring. Nicotine patch. Continue with IV hydration. Add gabapentin. Labs and medication were reviewed.. Continue same treatment. Continue with symptomatic treatment. Resume home medication. Monitor lytes and vitals. DVT and GI prophylaxis. Further recommendations depends on the clinical course of the patient DVT prophylaxis: Subcutaneous Lovenox GI Prophylaxis: Pepcid
[2020-09-17] MEDS: PANTOPRAZOLE 40 MG/10 ML VIAL IVP SCH ×2 (13:32→22:14)
[2020-09-17] MEDS: GABAPENTIN 100 MG CAP PO SCH ×2 (16:58→22:13)
[2020-09-18 06:36] LABS: ALT 35 U/L (4-49); AST 78 U/L (17-59); African American GFR (CKD) >90 (>60 ml/min/1.73 sqM); Albumin 2.9 g/dL (3.5-5.0); Albumin/Globulin Ratio 1.1; Alkaline Phosphatase 123 U/L (38-126); Anion Gap 4 mmol/L; Blood Urea Nitrogen 6 mg/dL (9-20); Calcium 8.1 mg/dL (8.4-10.2); Carbon Dioxide 27 mmol/L (22-30); Chloride 102 mmol/L (98-107); Globulin 2.6 g/dL; Glucose 94 mg/dL (74-99); Magnesium 1.9 mg/dL (1.6-2.3); Non-African American GFR(CKD) >90 (>60 ml/min/1.73 sqM); Potassium 3.7 mmol/L (3.5-5.1); Sodium 133 mmol/L (137-145); Total Bilirubin 1.6 mg/dL (0.2-1.3); Total Protein 5.5 g/dL (6.3-8.2)
[2020-09-18] MEDS: THIAMINE 100 MG TAB PO SCH ×2 (08:09→17:36)
[2020-09-18] MEDS: GABAPENTIN 100 MG CAP PO SCH ×3 (08:09→21:54)
[2020-09-18] MEDS: MULTIVITAMINS, THERA 1 EACH TAB PO SCH (08:09)
[2020-09-18] MEDS: PARoxetine 20 MG TAB PO SCH (08:09)
[2020-09-18] MEDS: NICOTINE 14MG/24HR PATCH TRANSDERM SCH (08:09)
[2020-09-18] MEDS: MAGNESIUM OXIDE 400 MG TAB PO SCH ×6 (08:09→21:54)
[2020-09-18] MEDS: ENOXAPARIN 40 MG/0.4 ML SYRINGE SQ SCH (08:09)
[2020-09-18] MEDS: PANTOPRAZOLE 40 MG/10 ML VIAL IVP SCH (09:11)
[2020-09-18 09:12] LABS: HCT 38.8 % (39.6-50.0); HGB 13.4 g/dL (13.0-17.0); MCH 36.8 pg (27.0-32.0); MCHC 34.5 g/dL (32.0-37.0); MCV 106.6 fL (80.0-97.0); Platelet Count 124 X 10*3/uL (140-440); RBC 3.64 X 10*6/uL (4.40-5.60); RDW 11.8 % (11.5-14.5); WBC 7.11 X 10*3/uL (4.50-10.00)
[2020-09-18 10:08] LABS: Basophils # (A) 0.13 X 10*3/uL (0.00-0.10); Basophils % (A) 1.8 %; Eosinophils % (A) 2.8 %; Lymphocytes # (A) 3.01 X 10*3/uL (0.90-5.00); Lymphocytes % (A) 42.3 %; Macrocytosis (M) 2+; Monocytes # (A) 0.72 X 10*3/uL (0.20-1.00); Monocytes % (A) 10.1 %; Neutrophils # (A) 3.03 X 10*3/uL (1.80-7.70); Neutrophils % (A) 42.7 %
[2020-09-18] MEDS ORDERED: PANTOPRAZOLE 40 MG TABLET PO SCH (21:00)
[2020-09-18] MEDS ORDERED: TEMAZEPAM 15 MG CAP PO PRN (21:03)
[2020-09-18] MEDS: SODIUM CHLORIDE 0.9% 1,000 ML IV SCH (21:55)
--- NOTE | 2020-09-18 22:42 | P.PN ---
Subjective This is a pleasant 50 years old male with past medical history of IV alcohol abuse and alcoholic liver disease. He presents because of signs and symptoms of alcohol withdrawal. Patient states that he drinks about 1.5 pint of liquor every day occasionally beers unknown winds. He wanted to quit because he wants to keep himself healthy. His last drink was one day earlier at 5 PM. Is complaining of from anxiety, sweating, shakiness and tremor with sweating but denies visual or auditory hallucination He denies chest pain dyspnea or coughing. No abdominal pain, Also complains from diarrhea about 3-4 times today with no blood, no blood. He had some very umbilical abdominal discomfort which is improved now No fever. Also he denies depression or suicidal ideation stating that he has children and he will not go through this, stating he did not have depression or suicidal ideation before. Patient smokes about 1-1.5 pack per day, he counseled to quit and he does not want this now however he agrees to nicotine patch and also he smokes marijuana Vitals are stable. unremarkable cbc, hemoglobin 17 which looks concentrated sample inr 1.2. sodium 135. liver enzymes are elevated with ast more than alt as ast is 245 and alt 65 which causes with alcoholic hepatitis. bilirubin is 1.7, magnesium is 1.0. alcohol level less than 10. coronavirus not detected. 09/17/2020 This is a pleasant 50 years old male who presents with alcohol withdrawal, today his more relaxed, history of have a tremor in his upper and lower extremities but definitely significantly less compared to yesterday. He still feeling jittery and anxious, also he feels some nausea and anxiety and whenever he eats he feels like vomiting so he try to avoid eating. He also was complaining of from diarrhea, he had 2 this morning the total amount brown with no blood. His electrolytes and creatinine are normal. Liver enzymes are trending down. Bilirubin is 1.9. Also he states that he has some graving for alcohol and smoking. He already has nicotine patch we will add gabapentin to hold him with his grieving Also we will change Pepcid to Protonix for possible alcoholic gastritis, and Tums later He is on CIWA protocol, his score this Morning was 2 and increased to 11 later on during the day. 1 dose of Valium is added. Continue with normal saline. Continue with vitamins No depression or suicidal ideation monitor hemoglobin tomorrow 09/18/2020 Patient has this grieving for alcohol today however he still has grieving for cigarette smoking. Abdominal pain is much improved and he started tolerating diet. However he still has diarrhea,, no hallucination or delusions Hemodynamically stable His CIWA score was 4, 5 and 1 today Change Protonix to once daily Add Restoril for sleep Objective - Vital Signs Vital signs: Vital Signs Temp 98.4 F 09/18/20 20:50 Pulse 72 09/18/20 20:50 Resp 16 09/18/20 20:50 BP 154/86 09/18/20 20:50 Pulse Ox 99 09/18/20 20:50 Intake & Output 09/18/20 09/18/20 09/19/20 06:59 18:59 06:59 Intake Total 675 740 Balance 675 740 Intake: Intake, IV Titration 675 Amount Sodium Chloride 0.9% 1, 675 000 ml @ 75 mls/hr IV . [id number] PRAVEEN Rx#:[id number] Oral 740 Other: # Voids 4 2 - Exam -GENERAL: The patient is alert and oriented x3, not in any acute distress. Shaky with a tremor HEENT: Pupils are round and equally reacting to light. EOMI. No scleral icterus. No conjunctival pallor. Normocephalic, atraumatic. No pharyngeal erythema. No thyromegaly. CARDIOVASCULAR: S1 and S2 present. No murmurs, rubs, or gallops. PULMONARY: Chest is clear to auscultation, no wheezing or crackles. ABDOMEN: Soft, nontender, nondistended, normoactive bowel sounds. No palpable organomegaly. MUSCULOSKELETAL: No joint swelling or deformity. EXTREMITIES: No cyanosis, clubbing, or pedal edema. NEUROLOGICAL: Gross neurological examination did not reveal any focal deficits. SKIN: No rashes. no petechiae. - Labs CBC & Chem 7: 09/18/20 05:52 09/18/20 05:52 Labs: Abnormal Lab Results - Last 24 Hours (Table) 09/18/20 09/18/20 Range/Units 05:52 05:52 RBC 3.64 L (4.40-5.60) X 10*6/uL Hct 38.8 L (39.6-50.0) % MCV 106.6 H (80.0-97.0) fL MCH 36.8 H (27.0-32.0) pg Plt Count 124 L (140-440) X 10*3/uL Basophils # 0.13 H (0.00-0.10) X 10*3/uL Sodium 133 L (137-145) mmol/L BUN 6 L (9-20) mg/dL Calcium 8.1 L (8.4-10.2) mg/dL Total Bilirubin 1.6 H (0.2-1.3) mg/dL AST 78 H (17-59) U/L Total Protein 5.5 L (6.3-8.2) g/dL Albumin 2.9 L (3.5-5.0) g/dL Assessment and Plan Assessment: Alcohol withdrawal with delirium tremens possible alcoholic gastritis Nicotine dependence Substance abuse with marijuana Alcoholic hepatitis with jaundice Severe hypomagnesemia Dehydration. Mild protein calorie malnutrition History of Hepatomegaly with fatty infiltration of the liver, highly concerning for alcoholic liver cirrhosis History of Anemia and Thrombocytopenia Plan: This is a pleasant 50 years old male who presents with alcohol abuse and withdrawal. Continue with CIWA protocol and thiamine. Continue with IV hydration. Replace electrolytes especially magnesium and potassium with monitoring. Nicotine patch. Continue with IV hydration. Add gabapentin. Labs and medication were reviewed.. Continue same treatment. Continue with symptomatic treatment. Resume home medication. Monitor lytes and vitals. DVT and GI prophylaxis. Further recommendations depends on the clinical course of the patient DVT prophylaxis: Subcutaneous Lovenox GI Prophylaxis: Pepcid
[2020-09-19] MEDS: LORazepam 2 MG/ML INJ IV PRN ×3 (04:57→20:38)
[2020-09-19 06:16] LABS: ALT 30 U/L (4-49); AST 61 U/L (17-59); African American GFR (CKD) >90 (>60 ml/min/1.73 sqM); Albumin 2.9 g/dL (3.5-5.0); Albumin/Globulin Ratio 1.1; Alkaline Phosphatase 120 U/L (38-126); Anion Gap 3 mmol/L; Blood Urea Nitrogen 4 mg/dL (9-20); Calcium 8.2 mg/dL (8.4-10.2); Carbon Dioxide 28 mmol/L (22-30); Chloride 104 mmol/L (98-107); Globulin 2.6 g/dL; Glucose 104 mg/dL (74-99); Magnesium 1.5 mg/dL (1.6-2.3); Non-African American GFR(CKD) >90 (>60 ml/min/1.73 sqM); Sodium 135 mmol/L (137-145); Total Bilirubin 0.8 mg/dL (0.2-1.3); Total Protein 5.5 g/dL (6.3-8.2)
[2020-09-19] MEDS ORDERED: PANTOPRAZOLE 40 MG TABLET PO SCH (07:30)
[2020-09-19] MEDS ORDERED: MAGNESIUM SULFATE-D5W PMX 1 GM in DEXTROSE/WATER 2 100ML.BAG IVPB ONE (09:00)
[2020-09-19] MEDS: MULTIVITAMINS, THERA 1 EACH TAB PO SCH (09:33)
[2020-09-19] MEDS: NICOTINE 14MG/24HR PATCH TRANSDERM SCH (09:33)
[2020-09-19] MEDS: MAGNESIUM OXIDE 400 MG TAB PO SCH ×3 (09:33→21:02)
[2020-09-19] MEDS: THIAMINE 100 MG TAB PO SCH ×2 (09:33→17:17)
[2020-09-19] MEDS: PARoxetine 20 MG TAB PO SCH (09:34)
[2020-09-19] MEDS: GABAPENTIN 100 MG CAP PO SCH ×3 (09:35→21:02)
[2020-09-19] MEDS: ENOXAPARIN 40 MG/0.4 ML SYRINGE SQ SCH (09:36)
[2020-09-19] MEDS: SODIUM CHLORIDE 0.9% 1,000 ML IV SCH ×2 (12:27→22:36)
[2020-09-19] MEDS ORDERED: MAGNESIUM SULFATE-D5W PMX 1 GM in DEXTROSE/WATER 1 100ML.BAG IVPB ONE (21:32)
[2020-09-19] MEDS ORDERED: diazePAM 5 MG TAB PO STA (21:33)
--- NOTE | 2020-09-19 21:38 | P.PN ---
Subjective This is a pleasant 50 years old male with past medical history of IV alcohol abuse and alcoholic liver disease. He presents because of signs and symptoms of alcohol withdrawal. Patient states that he drinks about 1.5 pint of liquor every day occasionally beers unknown winds. He wanted to quit because he wants to keep himself healthy. His last drink was one day earlier at 5 PM. Is complaining of from anxiety, sweating, shakiness and tremor with sweating but denies visual or auditory hallucination He denies chest pain dyspnea or coughing. No abdominal pain, Also complains from diarrhea about 3-4 times today with no blood, no blood. He had some very umbilical abdominal discomfort which is improved now No fever. Also he denies depression or suicidal ideation stating that he has children and he will not go through this, stating he did not have depression or suicidal ideation before. Patient smokes about 1-1.5 pack per day, he counseled to quit and he does not want this now however he agrees to nicotine patch and also he smokes marijuana Vitals are stable. unremarkable cbc, hemoglobin 17 which looks concentrated sample inr 1.2. sodium 135. liver enzymes are elevated with ast more than alt as ast is 245 and alt 65 which causes with alcoholic hepatitis. bilirubin is 1.7, magnesium is 1.0. alcohol level less than 10. coronavirus not detected. 09/17/2020 This is a pleasant 50 years old male who presents with alcohol withdrawal, today his more relaxed, history of have a tremor in his upper and lower extremities but definitely significantly less compared to yesterday. He still feeling jittery and anxious, also he feels some nausea and anxiety and whenever he eats he feels like vomiting so he try to avoid eating. He also was complaining of from diarrhea, he had 2 this morning the total amount brown with no blood. His electrolytes and creatinine are normal. Liver enzymes are trending down. Bilirubin is 1.9. Also he states that he has some graving for alcohol and smoking. He already has nicotine patch we will add gabapentin to hold him with his grieving Also we will change Pepcid to Protonix for possible alcoholic gastritis, and Tums later He is on CIWA protocol, his score this Morning was 2 and increased to 11 later on during the day. 1 dose of Valium is added. Continue with normal saline. Continue with vitamins No depression or suicidal ideation monitor hemoglobin tomorrow 09/18/2020 Patient has this grieving for alcohol today however he still has grieving for cigarette smoking. Abdominal pain is much improved and he started tolerating diet. However he still has diarrhea,, no hallucination or delusions Hemodynamically stable His CIWA score was 4, 5 and 1 today Change Protonix to once daily Add Restoril for sleep 09/19/2020 Patient still have grieving for smoking but not for alcohol. We increased his nicotine patch from 14 to 21 mg. Also will give 1 dose of Valium He does not have epigastric abdominal pain no nausea vomiting and his diarrhea is slowing down. Sutures Protonix to twice daily orally distended of anxiety. Continue with nausea medication and normal saline at 75 mL/h He still undergoing withdrawal with CIWA protocol score is 8-11, give 1 dose of Valium on the top of his Ativan as needed. In going to Alcoholics Anonymous but not to alcohol detox rehab, Consult social media sr strategy manager is placed Continue with thiamine and replace electrolytes. Continue with gabapentin Continue with close monitoring Objective - Vital Signs Vital signs: Vital Signs Temp 99.2 F 09/19/20 21:00 Pulse 68 09/19/20 21:00 Resp 16 09/19/20 21:00 BP 149/88 09/19/20 21:00 Pulse Ox 97 09/19/20 21:00 Intake & Output 09/19/20 09/19/20 09/20/20 06:59 18:59 06:59 Intake Total 1315 590 Balance 1315 590 Intake: Intake, IV Titration 725 Amount Sodium Chloride 0.9% 1, 725 000 ml @ 75 mls/hr IV . [id number] [facility] Rx#:[id number] Oral 590 590 Other: Voiding Method Toilet Toilet Toilet # Voids 2 1 - Exam -GENERAL: The patient is alert and oriented x3, not in any acute distress. Shaky with a tremor HEENT: Pupils are round and equally reacting to light. EOMI. No scleral icterus. No conjunctival pallor. Normocephalic, atraumatic. No pharyngeal erythema. No thyromegaly. CARDIOVASCULAR: S1 and S2 present. No murmurs, rubs, or gallops. PULMONARY: Chest is clear to auscultation, no wheezing or crackles. ABDOMEN: Soft, nontender, nondistended, normoactive bowel sounds. No palpable organomegaly. MUSCULOSKELETAL: No joint swelling or deformity. EXTREMITIES: No cyanosis, clubbing, or pedal edema. NEUROLOGICAL: Gross neurological examination did not reveal any focal deficits. SKIN: No rashes. no petechiae. - Labs CBC & Chem 7: 09/18/20 05:52 09/19/20 05:52 Labs: Abnormal Lab Results - Last 24 Hours (Table) 09/19/20 Range/Units 05:52 Sodium 135 L (137-145) mmol/L BUN 4 L (9-20) mg/dL Creatinine 0.58 L (0.66-1.25) mg/dL Glucose 104 H (74-99) mg/dL Calcium 8.2 L (8.4-10.2) mg/dL Magnesium 1.5 L (1.6-2.3) mg/dL AST 61 H (17-59) U/L Total Protein 5.5 L (6.3-8.2) g/dL Albumin 2.9 L (3.5-5.0) g/dL Assessment and Plan Assessment: Alcohol withdrawal with delirium tremens alcoholic gastritis Nicotine dependence Substance abuse with marijuana Alcoholic hepatitis with jaundice Severe hypomagnesemia Dehydration. Mild protein calorie malnutrition History of Hepatomegaly with fatty infiltration of the liver, highly concerning for alcoholic liver cirrhosis History of Anemia and Thrombocytopenia Plan: This is a pleasant 50 years old male who presents with alcohol abuse and withdrawal. Continue with CIWA protocol and thiamine. Continue with IV hydration. Replace electrolytes especially magnesium and potassium with monitoring. Nicotine patch. Continue with IV hydration. Add gabapentin. Labs and medication were reviewed.. Continue same treatment. Continue with symptomatic treatment. Resume home medication. Monitor lytes and vitals. DVT and GI prophylaxis. Further recommendations depends on the clinical course of the patient DVT prophylaxis: Subcutaneous Lovenox GI Prophylaxis: Ppi Prognosis is guarded social contact worker consult
[2020-09-19] MEDS: NICOTINE 21MG/24HR PATCH TRANSDERM SCH (22:34)
[2020-09-19] MEDS: PANTOPRAZOLE 40 MG TABLET PO SCH (22:34)
[2020-09-20] MEDS: LORazepam 2 MG/ML INJ IV PRN ×2 (05:44→10:43)
[2020-09-20] MEDS: PANTOPRAZOLE 40 MG TABLET PO SCH ×2 (10:43→20:58)
[2020-09-20] MEDS: GABAPENTIN 100 MG CAP PO SCH ×2 (10:43→20:58)
[2020-09-20] MEDS: MULTIVITAMINS, THERA 1 EACH TAB PO SCH (10:43)
[2020-09-20] MEDS: NICOTINE 21MG/24HR PATCH TRANSDERM SCH (10:43)
[2020-09-20] MEDS: ENOXAPARIN 40 MG/0.4 ML SYRINGE SQ SCH (10:43)
[2020-09-20] MEDS: MAGNESIUM OXIDE 400 MG TAB PO SCH ×3 (10:43→20:58)
[2020-09-20] MEDS: THIAMINE 100 MG TAB PO SCH ×2 (10:43→18:01)
[2020-09-20] MEDS: PARoxetine 20 MG TAB PO SCH (10:50)
[2020-09-20 11:33] VITALS: BMI 18.5
[2020-09-20 11:45] LABS: ALT 31 U/L (10-49); AST 55 U/L (14-35); African American GFR (CKD) 137.8 (60.0-200.0); Albumin/Globulin Ratio 1.59 (1.60-3.17); Alkaline Phosphatase 120 U/L (41-126); Blood Urea Nitrogen <5.0 mg/dL (9.0-27.0); Calcium 8.5 mg/dL (8.7-10.3); Carbon Dioxide 25.6 mmol/L (21.6-31.8); Chloride 103 mmol/L (96-109); Globulin 2.2 g/dL (1.6-3.3); Glucose 102 mg/dL (70-110); Magnesium 1.6 mg/dL (1.5-2.4); Non-African American GFR(CKD) 118.9 (60.0-200.0); Potassium 3.9 mmol/L (3.5-5.5); Sodium 137 mmol/L (135-145); Total Bilirubin 0.8 mg/dL (0.2-1.2); Total Protein 5.7 g/dL (6.2-8.2)
--- NOTE | 2020-09-20 12:34 | P.PN ---
Subjective This is a pleasant 50 years old male with past medical history of IV alcohol abuse and alcoholic liver disease. He presents because of signs and symptoms of alcohol withdrawal. Patient states that he drinks about 1.5 pint of liquor every day occasionally beers unknown winds. He wanted to quit because he wants to keep himself healthy. His last drink was one day earlier at 5 PM. Is complaining of from anxiety, sweating, shakiness and tremor with sweating but denies visual or auditory hallucination He denies chest pain dyspnea or coughing. No abdominal pain, Also complains from diarrhea about 3-4 times today with no blood, no blood. He had some very umbilical abdominal discomfort which is improved now No fever. Also he denies depression or suicidal ideation stating that he has children and he will not go through this, stating he did not have depression or suicidal ideation before. Patient smokes about 1-1.5 pack per day, he counseled to quit and he does not want this now however he agrees to nicotine patch and also he smokes marijuana Vitals are stable. unremarkable cbc, hemoglobin 17 which looks concentrated sample inr 1.2. sodium 135. liver enzymes are elevated with ast more than alt as ast is 245 and alt 65 which causes with alcoholic hepatitis. bilirubin is 1.7, magnesium is 1.0. alcohol level less than 10. coronavirus not detected. 09/17/2020 This is a pleasant 50 years old male who presents with alcohol withdrawal, today his more relaxed, history of have a tremor in his upper and lower extremities but definitely significantly less compared to yesterday. He still feeling jittery and anxious, also he feels some nausea and anxiety and whenever he eats he feels like vomiting so he try to avoid eating. He also was complaining of from diarrhea, he had 2 this morning the total amount brown with no blood. His electrolytes and creatinine are normal. Liver enzymes are trending down. Bilirubin is 1.9. Also he states that he has some graving for alcohol and smoking. He already has nicotine patch we will add gabapentin to hold him with his grieving Also we will change Pepcid to Protonix for possible alcoholic gastritis, and Tums later He is on CIWA protocol, his score this Morning was 2 and increased to 11 later on during the day. 1 dose of Valium is added. Continue with normal saline. Continue with vitamins No depression or suicidal ideation monitor hemoglobin tomorrow 09/18/2020 Patient has this grieving for alcohol today however he still has grieving for cigarette smoking. Abdominal pain is much improved and he started tolerating diet. However he still has diarrhea,, no hallucination or delusions Hemodynamically stable His CIWA score was 4, 5 and 1 today Change Protonix to once daily Add Restoril for sleep 09/19/2020 Patient still have grieving for smoking but not for alcohol. We increased his nicotine patch from 14 to 21 mg. Also will give 1 dose of Valium He does not have epigastric abdominal pain no nausea vomiting and his diarrhea is slowing down. Sutures Protonix to twice daily orally distended of anxiety. Continue with nausea medication and normal saline at 75 mL/h He still undergoing withdrawal with CIWA protocol score is 8-11, give 1 dose of Valium on the top of his Ativan as needed. In going to Alcoholics Anonymous but not to alcohol detox rehab, Consult social worker health services is placed Continue with thiamine and replace electrolytes. Continue with gabapentin Continue with close monitoring 09/20/2020 Patient when he woke up this morning he was still feeling a little jittery, he had sleep after he took 5 mg of Valium, actually it was harder for him to wake up for 4:00 vital check. Because of this we might give him less dose of Valium tonight at 3 mg at bedtime, however volume looks open him for the graving and his withdrawal. His CIWA score this morning was 12 and 8. Patient confirmed resolution of his abdominal pain and heating 50-75% of his diet, diarrhea almost resolved, he has 2 bowel movements yesterday which were semisolid. However the patient is complaining of from frequent urination, he please every 1 hour and is bothering him. He ordered urine analysis and bladder scan His basic metabolic panel is improving. His magnesium is 1.6 and will give him some replacement. Liver enzymes are significantly improving except for mild h igh AST at 55. We will lower his gabapentin 200 mg twice a day Objective - Vital Signs Vital signs: Vital Signs Temp 98.3 F 09/20/20 11:19 Pulse 72 09/20/20 11:19 Resp 18 09/20/20 11:19 BP 146/87 09/20/20 11:19 Pulse Ox 98 09/20/20 11:19 Intake & Output 09/19/20 09/20/20 09/20/20 18:59 06:59 18:59 Intake Total 590 Output Total 100 Balance 490 Weight 56.9 kg 56.9 kg Intake: Oral 590 Output: Gastric Drainage 100 Other: Voiding Method Toilet Toilet Toilet # Voids 2 - Exam -GENERAL: The patient is alert and oriented x3, not in any acute distress. Shaky with a tremor HEENT: Pupils are round and equally reacting to light. EOMI. No scleral icterus. No conjunctival pallor. Normocephalic, atraumatic. No pharyngeal erythema. No thyromegaly. CARDIOVASCULAR: S1 and S2 present. No murmurs, rubs, or gallops. PULMONARY: Chest is clear to auscultation, no wheezing or crackles. ABDOMEN: Soft, nontender, nondistended, normoactive bowel sounds. No palpable organomegaly. MUSCULOSKELETAL: No joint swelling or deformity. EXTREMITIES: No cyanosis, clubbing, or pedal edema. NEUROLOGICAL: Gross neurological examination did not reveal any focal deficits. SKIN: No rashes. no petechiae. - Labs CBC & Chem 7: 09/18/20 05:52 09/20/20 05:25 Labs: Abnormal Lab Results - Last 24 Hours (Table) 09/20/20 Range/Units 05:25 BUN <5.0 L (9.0-27.0) mg/dL Calcium 8.5 L (8.7-10.3) mg/dL AST 55 H (14-35) U/L Total Protein 5.7 L (6.2-8.2) g/dL Albumin 3.50 L (3.80-4.90) g/dL Albumin/Globulin Ratio 1.59 L (1.60-3.17) g/dL Assessment and Plan Assessment: Alcohol withdrawal with delirium tremens alcoholic gastritis Nicotine dependence Substance abuse with marijuana Alcoholic hepatitis with jaundice Severe hypomagnesemia Dehydration. Mild protein calorie malnutrition History of Hepatomegaly with fatty infiltration of the liver, highly concerning for alcoholic liver cirrhosis History of Anemia and Thrombocytopenia Plan: This is a pleasant 50 years old male who presents with alcohol abuse and withdrawal. Continue with CIWA protocol and thiamine. Continue with IV hydration. Replace electrolytes especially magnesium and potassium with monitoring. Nicotine patch. Continue with IV hydration. Lower frequency of gabapentin. Labs and medication were reviewed.. Continue same treatment. Continue with symptomatic treatment. Resume home medication. Monitor lytes and vitals. DVT and GI prophylaxis. Further recommendations depends on the clinical course of the patient DVT prophylaxis: Subcutaneous Lovenox GI Prophylaxis: Ppi Prognosis is guarded tear down worker consult
[2020-09-20 14:41] LABS: Appearance,Urine Clear (Clear); Bilirubin,Urine Negative (Negative); Blood,Urine Negative (Negative); Color,Urine Light Yellow; Glucose,Urine (UA) Negative (Negative); Ketones,Urine Negative (Negative); Leukocyte Esterase,Urine Negative (Negative); Nitrite,Urine Negative (Negative); PH, Urine 7.5 (5.0-8.0); Protein,Urine Negative (Negative); Specific Gravity,Urine 1.005 (1.001-1.035); Urobilinogen,Urine <2.0 mg/dL (<2.0)
[2020-09-20] MEDS: MAGNESIUM SULFATE-D5W PMX 1 GM in DEXTROSE/WATER 1 100ML.BAG IVPB SCH ×2 (14:57→18:01)
[2020-09-20] MEDS: SODIUM CHLORIDE 0.9% 1,000 ML IV SCH ×2 (18:19→23:51)
[2020-09-20 20:55] LABS: Hypochromasia Marked; MCH 35.9 pg (25.0-35.0); MCHC 30.8 g/dL (31.0-37.0); Macrocytosis Marked; Mean Platelet Volume 12.1; RBC 3.93 m/uL (4.30-5.90); RDW 12.3 % (11.5-15.5); WBC 6.4 k/uL (3.8-10.6)
[2020-09-20 20:58] LABS: HGB 14.1 gm/dL (13.0-17.5); MCV 116.9 fL (80.0-100.0)
[2020-09-20] MEDS ORDERED: diazePAM 2 MG TAB PO SCH (21:00)
[2020-09-20 21:13] LABS: Platelet Count 100 k/uL (150-450)
[2020-09-21 04:30] VITALS: BP 129/82; PULSE 70; RESP 16; TEMP 98.3
[2020-09-21 09:18] LABS: African American GFR (CKD) >90 (>60 ml/min/1.73 sqM); Anion Gap 3 mmol/L; Blood Urea Nitrogen 5 mg/dL (9-20); Calcium 9.1 mg/dL (8.4-10.2); Carbon Dioxide 31 mmol/L (22-30); Chloride 102 mmol/L (98-107); Glucose 90 mg/dL (74-99); Magnesium 1.7 mg/dL (1.6-2.3); Non-African American GFR(CKD) >90 (>60 ml/min/1.73 sqM); Potassium 4.2 mmol/L (3.5-5.1); Sodium 136 mmol/L (137-145)
[2020-09-21] MEDS ORDERED: Magnesium Replacement Protocol 1 EACH MISC MISCELLANE PRN (09:57)
[2020-09-21] MEDS ORDERED: MAGNESIUM SULFATE-D5W PMX 1 GM in DEXTROSE/WATER 1 100ML.BAG IVPB SCH (10:00)
[2020-09-21] MEDS ORDERED: LORazepam 0.5 MG TAB PO STA (10:12)
[2020-09-21] MEDS: MULTIVITAMINS, THERA 1 EACH TAB PO SCH (10:14)
[2020-09-21] MEDS: NICOTINE 21MG/24HR PATCH TRANSDERM SCH (10:14)
[2020-09-21] MEDS: GABAPENTIN 100 MG CAP PO SCH (10:14)
[2020-09-21] MEDS: MAGNESIUM OXIDE 400 MG TAB PO SCH (10:14)
[2020-09-21] MEDS: THIAMINE 100 MG TAB PO SCH (10:14)
[2020-09-21] MEDS: ENOXAPARIN 40 MG/0.4 ML SYRINGE SQ SCH (10:15)
[2020-09-21] MEDS: PANTOPRAZOLE 40 MG TABLET PO SCH (10:15)
[2020-09-21] MEDS: PARoxetine 20 MG TAB PO SCH (10:15)
== END 2020-09-21 12:15 | disposition home or self-care (01) | DRG 897 ==
LOC: EC 11:45 → 5NMEDONC 13:16
PROVIDERS: ADMIT Internal Medicine; ATTEND Internal Medicine
DX: F10.231 Alcohol dependence with withdrawal delirium (principal); E44.1 Mild protein-calorie malnutrition; Z68.1 Body mass index [BMI] 19.9 or less, adult; F17.210 Nicotine dependence, cigarettes, uncomplicated; E86.0 Dehydration; E83.42 Hypomagnesemia; F41.9 Anxiety disorder, unspecified; K29.20 Alcoholic gastritis without bleeding; K70.10 Alcoholic hepatitis without ascites; K70.30 Alcoholic cirrhosis of liver without ascites; K76.0 Fatty (change of) liver, not elsewhere classified; Z79.899 Other long term (current) drug therapy; Z20.822 Contact with and (suspected) exposure to COVID-19; D64.9 Anemia, unspecified; D69.6 Thrombocytopenia, unspecified; F12.10 Cannabis abuse, uncomplicated
CPT/HCPCS: 36415; 80048; 80053; 80320; 81003; 82150; 83690; 83735; 85025; 85027; 85610; 87635; 93005; 96365; 96372; 96375; 96376; 99285

== ENCOUNTER 2020-10-14 04:32 | Inpatient (IN) | payer BC ==
[2020-10-14] MEDS ORDERED: LORazepam 2 MG/ML INJ IV STA ×2 (04:51→05:04)
[2020-10-14] MEDS ORDERED: SODIUM CHLORIDE 0.9% 1,000 ML IV ONE (04:51)
--- NOTE | 2020-10-14 05:02 | ED ---
Alcohol HPI - General Chief Complaint: Alcohol Stated Complaint: Alcohol withdrawal Time Seen by Provider: 10/14/20 04:51 Source: patient Mode of arrival: ambulatory Limitations: no limitations - History of Present Illness MD Complaint: alcohol withdrawal Last Drink: just [employer] Recent Trauma: No Associated Symptoms: tremors Treatments Prior to Arrival: none Chronic Alcohol Use: Yes - Related Data Home Medications Medication Instructions Recorded Confirmed PARoxetine [Paxil] 20 mg PO DAILY 09/16/20 09/16/20 Sildenafil Citrate 100 mg PO DAILY PRN 09/16/20 09/16/20 Previous Rx's Medication Instructions Recorded Magnesium Oxide [Mag-Ox] 400 mg PO DAILY #30 tab 12/11/19 Spironolactone [Aldactone] 50 mg PO DAILY #30 tab 12/11/19 Thiamine [Vitamin B-1] 100 mg PO DAILY #30 tablet 12/11/19 Magnesium Oxide [Mag-Ox] 400 mg PO TID #60 tab 09/21/20 Multivitamins, Thera [Multivitamin 1 each PO DAILY #30 tab 09/21/20 (formulary)] Nicotine 21Mg/24Hr Patch [Habitrol] 1 patch TRANSDERM DAILY #7 patch 09/21/20 Pantoprazole [Protonix] 40 mg PO DAILY #30 tablet. 09/21/20 Thiamine [Vitamin B-1] 100 mg PO BID-W/MEALS #30 tab 09/21/20 LORazepam [Ativan] 1 mg PO BID #4 tab 09/22/20 Allergies Allergy/AdvReac Type Severity Reaction Status Date / Time No Known Allergies Allergy Verified 10/14/20 04:43 Review of Systems ROS Statement: Those systems with pertinent positive or pertinent negative responses have been documented in the HPI. ROS Other: All systems not noted in ROS Statement are negative. Constitutional: Denies: fever Eyes: Denies: vision change Respiratory: Denies: cough, dyspnea Cardiovascular: Reports: palpitations. Denies: chest pain Gastrointestinal: Denies: abdominal pain, vomiting Genitourinary: Denies: dysuria Musculoskeletal: Denies: back pain Skin: Denies: rash Neurological: Denies: headache, weakness Psychiatric: Reports: anxiety. Denies: depression, auditory hallucinations, visual hallucinations, homicidal thoughts, suicidal thoughts Past Medical History Past Medical History: Liver Disease Additional Past Medical History / Comment(s): alcoholic cirrhosis History of Any Multi-Drug Resistant Organisms: None Reported Past Surgical History: No Surgical Hx Reported Past Anesthesia/Blood Transfusion Reactions: No Reported Reaction Past Psychological History: No Psychological Hx Reported Smoking Status: Current every day smoker Past Alcohol Use History: Abuse, Daily, Heavy Past Drug Use History: Marijuana - Past Family History Father Family Medical History: Cancer General Exam Limitations: no limitations General appearance: alert, appears intoxicated, anxious, other (Tremor) Head exam: Present: atraumatic, normocephalic Eye exam: Present: normal appearance, PERRL, EOMI, nystagmus. Absent: scleral icterus, conjunctival injection ENT exam: Present: mucous membranes dry Respiratory exam: Present: normal lung sounds bilaterally. Absent: respiratory distress, wheezes, rales, rhonchi, stridor Cardiovascular Exam: Present: regular rate, normal rhythm, normal heart sounds. Absent: systolic murmur, diastolic murmur, rubs, gallop GI/Abdominal exam: Present: soft. Absent: distended, tenderness, guarding, rebound Extremities exam: Present: normal inspection, normal capillary refill. Absent: pedal edema, calf tenderness Back exam: Present: normal inspection. Absent: CVA tenderness (R), CVA tenderness (L) Neurological exam: Present: alert Skin exam: Present: warm, dry, intact, normal color. Absent: rash Course Vital Signs 10/14/20 10/14/20 10/14/20 04:41 05:43 06:00 Temperature 97.9 F Pulse Rate 150 H 113 H 110 H Respiratory 18 16 16 Rate Blood Pressure 190/121 136/90 O2 Sat by Pulse 96 98 98 Oximetry Medical Decision Making - Lab Data Result diagrams: 10/14/20 05:16 10/14/20 05:16 Lab Results 10/14/20 10/14/20 Range/Units 05:16 05:16 WBC 10.6 (3.8-10.6) k/uL RBC 4.87 (4.30-5.90) m/uL Hgb 17.0 (13.0-17.5) gm/dL Hct 50.1 (39.0-53.0) % MCV 102.8 H D (80.0-100.0) fL MCH 34.9 (25.0-35.0) pg MCHC 34.0 (31.0-37.0) g/dL RDW 12.3 (11.5-15.5) % Plt Count 300 D (150-450) k/uL MPV 7.0 Neutrophils % 29 % Lymphocytes % 58 % Monocytes % 5 % Eosinophils % 4 % Basophils % 2 % Neutrophils # 3.1 (1.3-7.7) k/uL Lymphocytes # 6.2 H (1.0-4.8) k/uL Monocytes # 0.5 (0-1.0) k/uL Eosinophils # 0.4 (0-0.7) k/uL Basophils # 0.2 (0-0.2) k/uL Macrocytosis Slight Sodium 145 (137-145) mmol/L Potassium 4.1 (3.5-5.1) mmol/L Chloride 104 (98-107) mmol/L Carbon Dioxide 24 (22-30) mmol/L Anion Gap 17 mmol/L BUN 5 L (9-20) mg/dL Creatinine 0.64 L (0.66-1.25) mg/dL Est GFR (CKD-EPI)AfAm >90 (>60 ml/min/1.73 sqM) Est GFR (CKD-EPI)NonAf >90 (>60 ml/min/1.73 sqM) Glucose 127 H (74-99) mg/dL Calcium 9.7 (8.4-10.2) mg/dL Total Bilirubin 0.5 (0.2-1.3) mg/dL AST 78 H (17-59) U/L ALT 27 (4-49) U/L Alkaline Phosphatase 174 H (38-126) U/L Total Protein 7.8 (6.3-8.2) g/dL Albumin 4.6 (3.5-5.0) g/dL Serum Alcohol 413 H* mg/dL Disposition Clinical Impression: Alcohol withdrawal Disposition: ADMITTED IP TO THIS HOSP Condition: Fair Instructions (If sedation given, give patient instructions): Alcohol Withdrawal (ED) Is patient prescribed a controlled substance at d/c from ED?: No Referrals: Jhon Patterson MD [Primary Care Provider] - 1-2 days
[2020-10-14] MEDS ORDERED: LORazepam 2 MG/ML INJ IV PRN (05:05)
[2020-10-14 05:23] LABS: Basophils # (A) 0.2 k/uL (0-0.2); Basophils % (A) 2 %; Eosinophils # (A) 0.4 k/uL (0-0.7); Eosinophils % (A) 4 %; HCT 50.1 % (39.0-53.0); Lymphocytes # (A) 6.2 k/uL (1.0-4.8); Lymphocytes % (A) 58 %; MCH 34.9 pg (25.0-35.0); Macrocytosis Slight; Monocytes # (A) 0.5 k/uL (0-1.0); Monocytes % (A) 5 %; Neutrophils # (A) 3.1 k/uL (1.3-7.7); Neutrophils % (A) 29 %; RBC 4.87 m/uL (4.30-5.90); RDW 12.3 % (11.5-15.5); WBC 10.6 k/uL (3.8-10.6)
[2020-10-14 05:28] LABS: MCV 102.8 fL (80.0-100.0)
[2020-10-14 05:29] LABS: Platelet Count 300 k/uL (150-450)
[2020-10-14 05:32] LABS: ALT 27 U/L (4-49); AST 78 U/L (17-59); African American GFR (CKD) >90 (>60 ml/min/1.73 sqM); Albumin 4.6 g/dL (3.5-5.0); Alkaline Phosphatase 174 U/L (38-126); Anion Gap 17 mmol/L; Blood Urea Nitrogen 5 mg/dL (9-20); Calcium 9.7 mg/dL (8.4-10.2); Carbon Dioxide 24 mmol/L (22-30); Chloride 104 mmol/L (98-107); Glucose 127 mg/dL (74-99); Non-African American GFR(CKD) >90 (>60 ml/min/1.73 sqM); Potassium 4.1 mmol/L (3.5-5.1); Sodium 145 mmol/L (137-145); Total Bilirubin 0.5 mg/dL (0.2-1.3); Total Protein 7.8 g/dL (6.3-8.2)
[2020-10-14] MEDS: LORazepam 2 MG/ML INJ IV PRN ×5 (05:52→20:39)
[2020-10-14 05:55] LABS: Alcohol 413 mg/dL
[2020-10-14] MEDS ORDERED: NALOXONE 0.4 MG/ML 1 ML VIAL IV PRN (06:08)
[2020-10-14] MEDS ORDERED: ONDANSETRON 4 MG/2 ML VIAL IVP PRN (06:08)
[2020-10-14] MEDS ORDERED: SODIUM CHLORIDE 0.9% 1,000 ML IV SCH (06:15)
[2020-10-14] MEDS ORDERED: FAMOTIDINE 20 MG TAB PO SCH (09:00)
[2020-10-14] MEDS: SODIUM CHLORIDE 0.9% 1,000 ML IV SCH ×2 (10:03→17:13)
[2020-10-14] MEDS: NICOTINE 21MG/24HR PATCH TRANSDERM SCH (13:43)
[2020-10-14] MEDS: THIAMINE 100 MG TAB PO SCH (17:11)
[2020-10-14] MEDS ORDERED: KETOROLAC 15 MG/ML 1 ML VIAL IVP STA (17:17)
--- NOTE | 2020-10-14 18:44 | P.HPIM ---
History of Present Illness This is a pleasant 50 years old male with past medical history of IV alcohol abuse and alcoholic liver disease. He presents because of signs and symptoms of alcohol withdrawal. Patient states that he drinks about 1-2 pint of liquor every day , he was recently discharged from the hospital however within 2 weeks. Labs back to drinking and smoking about 2 packs per day. Patient started to have abdominal symptoms with nausea vomiting and diarrhea, mostly related to alcoholic affect so he came to the hospital. Also patient fell 4 days ago on his right hip area with a Minh and the area at the same time is complaining of from right lower rib pain and tenderness which prevents him from cough. It feels somewhat sad but denies suicidal or homicidal ideation. No chest pain or dyspnea or change in urine habits. No_weakness or numbness. On admission patient is tachycardic 99-110. Rest of vitals are stable and patient is afebrile. Serum alcohol level is elevated at 413. Coronavirus not detected. Labs including CBC and BMP is unremarkable. Bilirubin is normal 0.5, AST slightly high at 78 with normal ALT 27. Patient was already started on CIWA protocol and thiamine and normal saline at 125 mL/h Review of Systems CONSTITUTIONAL: No fever, no malaise, no fatigue. HEENT: No recent visual problems or hearing problems. Denied any sore throat. CARDIOVASCULAR: No orthopnea, PND, no palpitations, no syncope. PULMONARY: No shortness of breath, no cough, no hemoptysis. GASTROINTESTINAL: No diarrhea, no nausea, no vomiting, no abdominal pain. Normoactive bowel sounds. NEUROLOGICAL: No headaches, no weakness, no numbness. HEMATOLOGICAL: Denies any bleeding or petechiae. GENITOURINARY: Denies any burning micturition, frequency, or urgency. MUSCULOSKELETAL/RHEUMATOLOGICAL: Denies any joint pain, swelling, or any muscle pain. ENDOCRINE: Denies any polyuria or polydipsia. Past Medical History Past Medical History: Liver Disease Additional Past Medical History / Comment(s): alcoholic cirrhosis History of Any Multi-Drug Resistant Organisms: None Reported Past Surgical History: No Surgical Hx Reported Past Anesthesia/Blood Transfusion Reactions: No Reported Reaction Past Psychological History: No Psychological Hx Reported Smoking Status: Current every day smoker Past Alcohol Use History: Abuse, Daily, Heavy Past Drug Use History: Marijuana - Past Family History Father Family Medical History: Cancer Medications and Allergies Home Medications Medication Instructions Recorded Confirmed Type RX: Spironolactone [Aldactone] 50 mg PO DAILY #30 tab 12/11/19 10/14/20 Rx RX: PARoxetine [Paxil] 20 mg PO DAILY 09/16/20 10/14/20 History RX: Sildenafil Citrate 100 mg PO DAILY PRN 09/16/20 10/14/20 History RX: Magnesium Oxide [Mag-Ox] 400 mg PO TID #60 tab 09/21/20 10/14/20 Rx RX: Nicotine 21Mg/24Hr Patch 1 patch TRANSDERM DAILY #7 patch 09/21/20 10/14/20 Rx [Habitrol] RX: Pantoprazole [Protonix] 40 mg PO DAILY #30 tablet.dr 09/21/20 10/14/20 Rx RX: Thiamine [Vitamin B-1] 100 mg PO BID-W/MEALS #30 tab 09/21/20 10/14/20 Rx LORazepam [Ativan] 1 mg PO BID #4 tab 09/22/20 10/14/20 Rx RX: Multivitamins, Thera 1 tab PO DAILY 10/14/20 10/14/20 History [Multivitamin (formulary)] Allergies Allergy/AdvReac Type Severity Reaction Status Date / Time No Known Allergies Allergy Verified 10/14/20 09:43 Physical Exam Vitals: Vital Signs Temp Pulse Resp BP Pulse Ox 10/14/20 07:01 99 18 128/80 98 10/14/20 06:00 110 H 16 136/90 98 10/14/20 05:43 113 H 16 98 10/14/20 04:41 97.9 F 150 H 18 190/121 96 Intake and Output 10/13/20 10/14/20 10/14/20 22:59 06:59 14:59 Other: Weight 58.967 kg GENERAL: The patient is alert and oriented x3, not in any acute distress. Well developed, well nourished. HEENT: Pupils are round and equally reacting to light. EOMI. No scleral icterus. No conjunctival pallor. Normocephalic, atraumatic. No pharyngeal erythema. No thyromegaly. CARDIOVASCULAR: S1 and S2 present. No murmurs, rubs, or gallops. PULMONARY: Chest is clear to auscultation, no wheezing or crackles. ABDOMEN: Soft, nontender, nondistended, normoactive bowel sounds. No palpable organomegaly. MUSCULOSKELETAL: No joint swelling or deformity. EXTREMITIES: No cyanosis, clubbing, or pedal edema. NEUROLOGICAL: Gross neurological examination did not reveal any focal deficits. SKIN: No rashes. No petechiae Results CBC & Chem 7: 10/14/20 05:16 10/14/20 05:16 Labs: Abnormal Lab Results - Last 24 Hours (Table) 10/14/20 10/14/20 Range/Units 05:16 05:16 MCV 102.8 H D (80.0-100.0) fL Lymphocytes # 6.2 H (1.0-4.8) k/uL BUN 5 L (9-20) mg/dL Creatinine 0.64 L (0.66-1.25) mg/dL Glucose 127 H (74-99) mg/dL AST 78 H (17-59) U/L Alkaline Phosphatase 174 H (38-126) U/L Serum Alcohol 413 H* mg/dL Assessment and Plan Assessment: Alcohol intoxication at-risk of Alcohol withdrawal with delirium tremens Right hip bruise and right lower chest tenderness associated with fall due to alcohol intoxication 4 days prior to admission Alcoholic gastroenteritis Nicotine dependence Substance abuse with marijuana History of Hepatomegaly with fatty infiltration of the liver, highly concerning for alcoholic liver cirrhosis History of Anemia and Thrombocytopenia Plan: This is a pleasant 50 years old male who presents with alcohol abuse and withdr awal. gastroenteritis and fall with hip and chest tenderness. Continue with CIWA protocol and thiamine. Continue with IV hydration. Replace electrolytes especially magnesium and potassium with monitoring. Nicotine patch. Continue with IV hydration. Pain management and check x-rays consult psych service to help quit alcohol. Incentive spirometry Labs and medication were reviewed.. Continue same treatment. Continue with symptomatic treatment. Resume home medication. Monitor lytes and vitals. DVT and GI prophylaxis. Further recommendations depends on the clinical course of the patient DVT prophylaxis: Subcutaneous Lovenox GI Prophylaxis: ppi
--- NOTE | 2020-10-14 18:52 | XR ---
EXAMINATION TYPE: XR chest 1V DATE OF EXAM: 10/14/2020 COMPARISON: 12/09/2019. HISTORY: Shortness of breath. TECHNIQUE: Single frontal view of the chest is obtained. FINDINGS: Projection artifact related to overlapping structures seen in the right lung base. There is no focal air space opacity, pleural effusion, or pneumothorax seen. The cardiac silhouette size is within normal limits. The osseous structures are intact. IMPRESSION: No acute process.
--- NOTE | 2020-10-14 20:36 | XR ---
RESULT: HISTORY: fall TECHNIQUE: 2 views of the right hip were obtained. COMPARISON: None. FINDINGS: There is no acute fracture or dislocation. The visualized joint spaces are preserved. IMPRESSION: No acute osseous abnormality.
[2020-10-14] MEDS: PANTOPRAZOLE 40 MG/10 ML VIAL IVP SCH (20:48)
[2020-10-14] MEDS ORDERED: FAMOTIDINE 20 MG/2 ML VIAL IV SCH (21:00)
[2020-10-15] MEDS: LORazepam 2 MG/ML INJ IV PRN ×8 (00:32→23:13)
[2020-10-15] MEDS: ACETAMINOPHEN TAB 325 MG TAB PO PRN ×4 (00:36→23:08)
[2020-10-15] MEDS: THIAMINE 100 MG TAB PO SCH ×2 (07:18→16:41)
[2020-10-15 07:56] LABS: ALT 19 U/L (4-49); AST 55 U/L (17-59); African American GFR (CKD) >90 (>60 ml/min/1.73 sqM); Albumin/Globulin Ratio 1.2; Alkaline Phosphatase 104 U/L (38-126); Anion Gap 8 mmol/L; Blood Urea Nitrogen 7 mg/dL (9-20); Carbon Dioxide 23 mmol/L (22-30); Chloride 104 mmol/L (98-107); Globulin 2.6 g/dL; Glucose 98 mg/dL (74-99); Magnesium 1.1 mg/dL (1.6-2.3); Non-African American GFR(CKD) >90 (>60 ml/min/1.73 sqM); Potassium 3.6 mmol/L (3.5-5.1); Sodium 135 mmol/L (137-145); Total Bilirubin 1.4 mg/dL (0.2-1.3); Total Protein 5.6 g/dL (6.3-8.2)
[2020-10-15 07:59] LABS: Basophils # (A) 0.1 k/uL (0-0.2); Basophils % (A) 1 %; Eosinophils # (A) 0.5 k/uL (0-0.7); Eosinophils % (A) 6 %; HCT 40.3 % (39.0-53.0); Lymphocytes # (A) 2.5 k/uL (1.0-4.8); Lymphocytes % (A) 31 %; MCHC 34.4 g/dL (31.0-37.0); MCV 104.8 fL (80.0-100.0); Macrocytosis Slight; Monocytes # (A) 0.5 k/uL (0-1.0); Monocytes % (A) 6 %; Neutrophils # (A) 4.4 k/uL (1.3-7.7); Neutrophils % (A) 54 %; Platelet Count 175 k/uL (150-450); RBC 3.85 m/uL (4.30-5.90); RDW 12.4 % (11.5-15.5); WBC 8.1 k/uL (3.8-10.6)
[2020-10-15] MEDS: NICOTINE 21MG/24HR PATCH TRANSDERM SCH (08:39)
[2020-10-15] MEDS: PANTOPRAZOLE 40 MG/10 ML VIAL IVP SCH (08:39)
[2020-10-15] MEDS ORDERED: MULTIVITAMINS, THERA 1 EACH TAB PO SCH (09:00)
[2020-10-15] MEDS ORDERED: PARoxetine 20 MG TAB PO SCH (09:00)
[2020-10-15] MEDS ORDERED: SPIRONOLACTONE 25 MG TAB PO SCH (09:00)
[2020-10-15] MEDS ORDERED: ENOXAPARIN 40 MG/0.4 ML SYRINGE SQ SCH (09:00)
[2020-10-15 09:18] LABS: HGB 13.9 gm/dL (13.0-17.5)
[2020-10-15] MEDS: MAGNESIUM OXIDE 400 MG TAB PO SCH ×3 (10:16→21:46)
--- NOTE | 2020-10-15 10:40 | P.CN ---
Psychiatric Consult - . Consult date: 10/15/20 Consult:: 10/15/20 10:22 Chief complaint: this patient told me that the he was drinking too much alcohol. He started throwing up and was falling down and his fiance brought him here. History of present illness: This patient stated that he has been drinking alcohol off and on for his whole life. At times he has a blackout spells. He falls down and gets bruised. He has a bruise on the right thigh and right side of abdomen. This patient also stated that the he has severe anxiety and his mind goes 100 miles per hour. He denies any symptoms of depression. He stated he is always thinking about something. He stated he Keeps checking things over and over and keeps counting things over and over. Past psychiatric history: He stated he was never in a psychiatric hospital. He stated he was in alcohol rehab in 2012 or 30 days. He stated he has a primary care doctor prescribed him Paxil or Prozac. He stated Prozac did not help him. He stated he was taking Paxil only once in the morning. He stated it did work for him and his anxiety and his obsessions were less. He stated he was drinking and also taking taking Paxil at the same time. Family history: he stated he lives with his fiance. He stated he has 2 sons and a daughter. He stated he grew up with mother and father and he also has 2 sisters. He stated his father used to drink alcohol heavily. He denies any history of mental illness or suicide in the family. Medical history: He denied having any medical problems. He falls and gets a hurt after drinking. He has bruises over his body from falls. Social history: He finished high school and has no formal college education. He stated he has held 3 jobs for 8, 9, 10 years. 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 Substance abuse history: He has a history of drinking alcohol throughout his lif e. He occasionally smokes marijuana. He denied abuse of any other drugs. History of suicide and homicide.: He denies any history of suicidal behavior ever in his life. He denies any suicidal thoughts at this time. He denied any history of assaulting someone. Legal history: He stated he has 2 drunk driving tickets approximately 25 years ago. He denied having any other legal problems. ALLERGIES and ADR: He denies being ALLERGIC to any medications or denies any adverse drug reactions to any medications. Mental status: This patient appears to be of his stated age. He is he is alert and oriented to time place and person. His behavior was cooperative. His mood was anxious. His affect is euthymic. He does not have any auditory visual or any other types of hallucinations or delusions. He does not have any loose associations or flight of ideas or any disorder of thought process. His judgment is poor. And his impulse control is also poor. Abstract reasoning is intact. He has very poor insight into his problems. He denies any suicidal or homicidal thoughts, ideations or plans. Diagnostic impression: Alcohol dependence Anxiety disorder not otherwise specified Rule out obsessive-compulsive disorder History of falls Treatment recommendations: I recommended that he be referred for alcohol rehab. He would also benefit from ongoing psychiatric treatment. I would recommend that that he be referred to a psychiatrist for treatment of his anxiety disorder and other obsessive-compulsive symptoms.
[2020-10-15] MEDS ORDERED: Magnesium Replacement Protocol 1 EACH MISC MISCELLANE PRN (11:06)
[2020-10-15] MEDS: MAGNESIUM SULFATE-D5W PMX 1 GM in DEXTROSE/WATER 1 100ML.BAG IVPB SCH ×3 (11:14→14:33)
[2020-10-15] MEDS ORDERED: MAGNESIUM SULFATE-D5W PMX 1 GM in DEXTROSE/WATER 1 100ML.BAG IVPB SCH (16:00)
[2020-10-15] MEDS: SODIUM CHLORIDE 0.9% 1,000 ML IV SCH (16:41)
[2020-10-15] MEDS ORDERED: PANTOPRAZOLE 40 MG TABLET PO SCH (17:30)
[2020-10-15] MEDS ORDERED: POTASSIUM CHLORIDE ER 20 MEQ TAB.ER PO STA (19:10)
[2020-10-15] MEDS ORDERED: diazePAM 5 MG TAB PO STA (19:12)
--- NOTE | 2020-10-15 19:19 | P.PN ---
Subjective This is a pleasant 50 years old male with past medical history of IV alcohol abuse and alcoholic liver disease. He presents because of signs and symptoms of alcohol withdrawal. Patient states that he drinks about 1-2 pint of liquor every day , he was recently discharged from the hospital however within 2 weeks. Labs back to drinking and smoking about 2 packs per day. Patient started to have abdominal symptoms with nausea vomiting and diarrhea, mostly related to alcoholic affect so he came to the hospital. Also patient fell 4 days ago on his right hip area with a Minh and the area at the same time is complaining of from right lower rib pain and tenderness which prevents him from cough. It feels somewhat sad but denies suicidal or homicidal ideation. No chest pain or dyspnea or change in urine habits. No_weakness or numbness. On admission patient is tachycardic 99-110. Rest of vitals are stable and patient is afebrile. Serum alcohol level is elevated at 413. Coronavirus not detected. Labs including CBC and BMP is unremarkable. Bilirubin is normal 0.5, AST slightly high at 78 with normal ALT 27. Patient was already started on CIWA protocol and thiamine and normal saline at 125 mL/h 10/15/2020 Patient had good sleep in the morning when he woke up he had minimal tremor however his CIWA score was 8-15 today, He only complaining of from right lower chest pain, he had bowel movement with no diarrhea but soft. No nausea vomiting he tolerates his diet and no abdominal pain read His labs his stable and low magnesium replaced per protocol Psychiatrist evaluated the patient and his genital recommendation was noted Patient encouraged to use incentive spirometry and teaching is a provided Patient remains on CIWA protocol, thiamine, Protonix and 1 dose volume is added Review of Systems CONSTITUTIONAL: No fever, no malaise, no fatigue. HEENT: No recent visual problems or hearing problems. Denied any sore throat. CARDIOVASCULAR: No orthopnea, PND, no palpitations, no syncope. PULMONARY: No shortness of breath, no cough, no hemoptysis. GASTROINTESTINAL: No diarrhea, no nausea, no vomiting, no abdominal pain. Normoactive bowel sounds. NEUROLOGICAL: No headaches, no weakness, no numbness. Active Medications Generic Name Dose Route Start Last Admin Trade Name Freq PRN Reason Stop Dose Admin Acetaminophen 650 mg 10/14/20 06:08 10/15/20 17:48 Acetaminophen Tab 325 Mg Tab PO 650 mg Q6HR PRN Administration Mild Pain or Fever > 100.5 Enoxaparin Sodium 40 mg 10/15/20 09:00 10/15/20 08:39 Enoxaparin 40 Mg/0.4 Ml Syringe SQ 40 mg DAILY PRAVEEN Administration Sodium Chloride 1,000 mls @ 75 mls/hr 10/14/20 08:57 10/15/20 16:41 Saline 0.9% IV 75 mls/hr .[id number] PRAVEEN Administration Lorazepam 1 mg 10/14/20 05:05 10/15/20 14:33 Lorazepam 2 Mg/Ml Inj IV 1 mg Q2HR PRN Administration CIWA 8 or 9 Lorazepam 1 mg 10/14/20 05:05 10/15/20 17:42 Lorazepam 2 Mg/Ml Inj IV 1 mg Q1HR PRN Administration CIWA 10 to 15 Lorazepam 2 mg 10/14/20 05:05 Lorazepam 2 Mg/Ml Inj IV 10/16/20 05:05 Q10M PRN CIWA 16 or higher Magnesium Oxide 400 mg 10/15/20 10:00 10/15/20 16:41 Magnesium Oxide 400 Mg Tab PO 400 mg TID PRAVEEN Administration Miscellaneous Information 1 each 10/15/20 11:06 Magnesium Replacement Protocol 1 Each Misc MISCELLANE DAILY PRN Per Protocol Protocol Multivitamins 1 each 10/15/20 09:00 10/15/20 08:39 Multivitamins, Thera 1 Each Tab PO 1 each DAILY PRAVEEN Administration Naloxone HCl 0.2 mg 10/14/20 06:08 Naloxone 0.4 Mg/Ml 1 Ml Vial IV Q2M PRN Opioid Reversal Nicotine 1 patch 10/14/20 13:30 10/15/20 08:39 Nicotine 21mg/24hr Patch TRANSDERM 1 patch DAILY PRAVEEN Administration Ondansetron HCl 4 mg 10/14/20 06:08 Ondansetron 4 Mg/2 Ml Vial IVP Q8HR PRN Nausea And Vomiting Pantoprazole Sodium 40 mg 10/15/20 17:30 10/15/20 16:41 Pantoprazole 40 Mg Tablet PO 40 mg AC-BID PRAVEEN Administration Paroxetine HCl 20 mg 10/15/20 09:00 10/15/20 08:40 Paroxetine 20 Mg Tab PO 20 mg DAILY PRAVEEN Administration Spironolactone 50 mg 10/15/20 09:00 10/15/20 08:39 Spironolactone 25 Mg Tab PO 50 mg DAILY PRAVEEN Administration Thiamine HCl 100 mg 10/14/20 17:30 10/15/20 16:41 Thiamine 100 Mg Tab PO 100 mg BID-W/MEALS PRAVEEN Administration Objective - Vital Signs Vital signs: Vital Signs Temp 97.9 F 10/15/20 12:32 Pulse 75 10/15/20 12:32 Resp 17 10/15/20 12:32 BP 125/79 10/15/20 12:32 Pulse Ox 97 10/15/20 12:32 Intake & Output 10/14/20 10/15/20 10/15/20 18:59 06:59 18:59 Intake Total 900 1675 Balance 900 1675 Weight 56.9 kg Intake: Intake, IV Titration 900 825 Amount Sodium Chloride 0.9% 1, 900 825 000 ml @ 75 mls/hr IV . [id number] PRAVEEN Rx#:[id number] Oral 850 Other: Voiding Method Urinal Urinal Urinal # Voids 2 0 - Exam GENERAL: The patient is alert and oriented x3, not in any acute distress. Well d eveloped, well nourished. HEENT: Pupils are round and equally reacting to light. EOMI. No scleral icterus. No conjunctival pallor. Normocephalic, atraumatic. No pharyngeal erythema. No thyromegaly. CARDIOVASCULAR: S1 and S2 present. No murmurs, rubs, or gallops. PULMONARY: Chest is clear to auscultation, no wheezing or crackles. ABDOMEN: Soft, nontender, nondistended, normoactive bowel sounds. No palpable organomegaly. MUSCULOSKELETAL: No joint swelling or deformity. EXTREMITIES: No cyanosis, clubbing, or pedal edema. NEUROLOGICAL: Gross neurological examination did not reveal any focal deficits. SKIN: No rashes. no petechiae. - Labs CBC & Chem 7: 10/15/20 07:05 10/15/20 07:05 Labs: Abnormal Lab Results - Last 24 Hours (Table) 10/15/20 10/15/20 Range/Units 07:05 07:05 RBC 3.85 L (4.30-5.90) m/uL MCV 104.8 H (80.0-100.0) fL MCH 36.0 H (25.0-35.0) pg Sodium 135 L (137-145) mmol/L BUN 7 L (9-20) mg/dL Creatinine 0.51 L (0.66-1.25) mg/dL Calcium 8.0 L (8.4-10.2) mg/dL Magnesium 1.1 L (1.6-2.3) mg/dL Total Bilirubin 1.4 H (0.2-1.3) mg/dL Total Protein 5.6 L (6.3-8.2) g/dL Albumin 3.0 L (3.5-5.0) g/dL Assessment and Plan Assessment: Alcohol intoxication at-risk of Alcohol withdrawal with delirium tremens Right hip bruise and right lower chest tenderness associated with fall due to alcohol intoxication 4 days prior to admission. Negative x-ray of the right hip and chest Alcoholic gastroenteritis Nicotine dependence Substance abuse with marijuana History of Hepatomegaly with fatty infiltration of the liver, highly concerning for alcoholic liver cirrhosis History of Anemia and Thrombocytopenia Plan: This is a pleasant 50 years old male who presents with alcohol abuse and withdrawal. gastroenteritis and fall with hip and chest tenderness. Continue with CIWA protocol and thiamine. Continue with IV hydration. Replace electrolytes especially magnesium and potassium with monitoring. Nicotine patch. Continue with IV hydration. Pain management consult psych service to help quit alcohol. Incentive spirometry Labs and medication were reviewed.. Continue same treatment. Continue with symptomatic treatment. Resume home medication. Monitor lytes and vitals. DVT and GI prophylaxis. Further recommendations depends on the clinical course of the patient DVT prophylaxis: Subcutaneous Lovenox GI Prophylaxis: ppi
[2020-10-15 20:35] VITALS: BP 163/97; PULSE 78; RESP 18; TEMP 98.1
[2020-10-16] MEDS: LORazepam 2 MG/ML INJ IV PRN (01:12)
--- NOTE | 2020-10-16 06:59 | P.DS ---
Providers Date of admission: 10/14/20 06:08 Attending physician: Miquel Clark Consults: 10/14/20 13:24 Consult Physician Routine Consulting Provider: Naman Cooper Consult Reason/Comments: Alcohol dependence Do you want consulting provider notified?: Yes Primary care physician: Jhon Patterson Hospital Course: Please note the patient was not discharged but he left AGAINST MEDICAL ADVICE Diagnoses: Alcohol intoxication at-risk of Alcohol withdrawal with delirium tremens Right hip bruise and right lower chest tenderness associated with fall due to alcohol intoxication 4 days prior to admission. Negative x-ray of the right hip and chest Alcoholic gastroenteritis Nicotine dependence Substance abuse with marijuana History of Hepatomegaly with fatty infiltration of the liver, highly concerning for alcoholic liver cirrhosis History of Anemia and Thrombocytopenia Hospital course: This is a pleasant 50 years old male with past medical history of IV alcohol abuse and alcoholic liver disease. He presents because of signs and symptoms of alcohol intoxication and developing alcohol withdrawal. I admitted him for 5 days earlier this month treated his alcohol withdrawal and discharge on tapered benzodiazepines and stabilized condition however he relapsed quickly to drinking alcohol and came back for signs symptoms of alcohol gastroenteritis and he wanted to quit alcohol. He was treated symptomatically and per protocol for all his medical problems, he was improving gradually and it looks like her this morning patient decided to leave AMA before I had a chance to meet him again and talk to him However throughout the whole. I took care of him during last admission and this admission patient was alert awake and oriented 3 to time, person and place. He is aware of its surrounding and his medical problems and management plan and only showed understanding. And based upon my evaluation patient always had To make medical decision when I saw him and last time yesterday. Also patient evaluated by psychiatrist during this admission and he does not find him need inpatient psychiatric admission. Risks of leaving AMA are explained to the patient by staff per protocol. And it looks like patient was adamant on leaving because he does not want to quit drinking or smoking anymore. Please refer to nurses record and my previous note For more details Physical examination: Not done because patient left for chance to meet him today as he left nearly morning at 3:01 am Patient Condition at Discharge: Fair Plan - Discharge Summary Discharge Rx Participant: No New Discharge Prescriptions: No Action Spironolactone [Aldactone] 50 mg PO DAILY #30 tab PARoxetine [Paxil] 20 mg PO DAILY Sildenafil Citrate 100 mg PO DAILY PRN PRN Reason: ED Nicotine Mg/24Hr Patch [Habitrol] 1 patch TRANSDERM DAILY #7 patch Magnesium Oxide [Mag-Ox] 400 mg PO TID #60 tab Pantoprazole [Protonix] 40 mg PO DAILY #30 tablet. Thiamine [Vitamin B-1] 100 mg PO BID-W/MEALS #30 tab LORazepam [Ativan] 1 mg PO BID #4 tab Multivitamins, Thera [Multivitamin (formulary)] 1 tab PO DAILY Discharge Medication List Spironolactone [Aldactone] 50 mg PO DAILY #30 tab 12/11/19 [Rx] PARoxetine [Paxil] 20 mg PO DAILY 09/16/20 [History] Sildenafil Citrate 100 mg PO DAILY PRN 09/16/20 [History] Magnesium Oxide [Mag-Ox] 400 mg PO TID #60 tab 09/21/20 [Rx] Nicotine 21Mg/24Hr Patch [Habitrol] 1 patch TRANSDERM DAILY #7 patch 09/21/20 [Rx] Pantoprazole [Protonix] 40 mg PO DAILY #30 tablet. 09/21/20 [Rx] Thiamine [Vitamin B-1] 100 mg PO BID-W/MEALS #30 tab 09/21/20 [Rx] LORazepam [Ativan] 1 mg PO BID #4 tab 09/22/20 [Rx] Multivitamins, Thera [Multivitamin (formulary)] 1 tab PO DAILY 10/14/20 [History] Follow up Appointment(s)/Referral(s): Jhon Patterson MD [Primary Care Provider] - 1-2 days Patient Instructions/Handouts: Alcohol Withdrawal (ED) Discharge Disposition: Left Against Medical Advice
== END 2020-10-16 03:11 | disposition left against medical advice (07) | DRG 897 ==
LOC: EC 04:32 → 5NMEDONC 06:08
PROVIDERS: ADMIT Hospitalist; ATTEND Hospitalist
DX: F10.229 Alcohol dependence with intoxication, unspecified (principal); K52.1 Toxic gastroenteritis and colitis; K70.30 Alcoholic cirrhosis of liver without ascites; K70.0 Alcoholic fatty liver; F10.239 Alcohol dependence with withdrawal, unspecified; Z20.822 Contact with and (suspected) exposure to COVID-19; R16.0 Hepatomegaly, not elsewhere classified; Y90.8 Blood alcohol level of 240 mg/100 ml or more; F12.10 Cannabis abuse, uncomplicated; S70.01XA Contusion of right hip, initial encounter; R07.89 Other chest pain; F41.9 Anxiety disorder, unspecified; F42.9 Obsessive-compulsive disorder, unspecified; F17.210 Nicotine dependence, cigarettes, uncomplicated; Z53.29 Procedure and treatment not carried out because of patient's decision for other reasons; Z79.899 Other long term (current) drug therapy; Z86.2 Personal history of diseases of the blood and blood-forming organs and certain disorders involving the immune mechanism; W19.XXXA Unspecified fall, initial encounter
CPT/HCPCS: 36415; 71045; 73502; 80053; 80320; 83735; 85025; 87635; 96361; 96374; 99285

== ENCOUNTER 2022-06-09 13:04 | Observation (INO) | payer OTHER ==
[2022-06-09] MEDS ORDERED: NICOTINE 21MG/24HR PATCH TRANSDERM STA (14:05)
--- NOTE | 2022-06-09 14:09 | ED ---
General Adult HPI - General Chief complaint: Alcohol Stated complaint: alcohol dotox, arm injury Time Seen by Provider: 06/09/22 13:51 Source: patient Mode of arrival: ambulatory Limitations: no limitations - History of Present Illness Initial comments: Dictation was produced using [employer] dictation software. please excuse any grammatical, word or spelling errors. Chief Complaint: 51-year-old male presents emergency Department with request for alcohol detoxification suicidal ideation. History of Present Illness: 51-year-old male presents emergency department for suicidal ideation and request for alcohol detoxification. Patient has a plan to hold a gun to his head if given the chance. Patient is a daily alcohol drinker. He wants to detoxify. Patient states his last alcohol intake was earlier today. Denies any homicidal ideation. No visual or auditory hallucinations. She does note pain complaints. 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 The ROS documented in this emergency department record has been reviewed and confirmed by me. Those systems with pertinent positive or negative responses have been documented in the HPI. All other systems are other negative and/or noncontributory. PHYSICAL EXAM: General Impression: Alert and oriented x3, not in acute distress HEENT: Normocephalic atraumatic, extra-ocular movements intact, pupils equal and reactive to light bilaterally, mucous membranes moist. Cardiovascular: Heart regular rate and rhythm Chest: Able to complete full sentences, no retractions, no tachypnea Abdomen: abdomen soft, non-tender, non-distended, no organomegaly Musculoskeletal: Pulses present and equal in all extremities, no peripheral edema Motor: no focal deficits noted Neurological: CN II-XII grossly intact, no focal motor or sensory deficits noted Skin: Intact with no visualized rashes Psych: Normal affect and mood ED course: 51-year-old male presents with suicidal ideation. Patient also wants to detoxify from alcohol. Patient's last alcohol intake was earlier today. Vital Signs upon arrival are within acceptable limits. CBC and Metabolic panel is unremarkable. Serum alcohol is 324. Patient are to showing signs of withdrawal. Patient given 2 mg of Ativan. Patient be admitted for acute alcohol intoxication with high risk withdrawal. Psychiatry consulted for suicidal ideation. Critical Care: no Critical Care time: n/a - Related Data Home Medications Medication Instructions Recorded Confirmed PARoxetine [Paxil] 20 mg PO DAILY 09/16/20 10/14/20 Sildenafil Citrate 100 mg PO DAILY PRN 09/16/20 10/14/20 Multivitamins, Thera [Multivitamin 1 tab PO DAILY 10/14/20 10/14/20 (formulary)] Previous Rx's Medication Instructions Recorded Spironolactone [Aldactone] 50 mg PO DAILY #30 tab 12/11/19 Magnesium Oxide [Mag-Ox] 400 mg PO TID #60 tab 09/21/20 Nicotine 21Mg/24Hr Patch [Habitrol] 1 patch TRANSDERM DAILY #7 patch 09/21/20 Pantoprazole [Protonix] 40 mg PO DAILY #30 tablet. 09/21/20 Thiamine [Vitamin B-1] 100 mg PO BID-W/MEALS #30 tab 09/21/20 LORazepam [Ativan] 1 mg PO BID #4 tab 09/22/20 Allergies Allergy/AdvReac Type Severity Reaction Status Date / Time No Known Allergies Allergy Verified 06/09/22 13:10 Review of Systems ROS Statement: Those systems with pertinent positive or pertinent negative responses have been documented in the HPI. ROS Other: All systems not noted in ROS Statement are negative. Past Medical History Past Medical History: Liver Disease Additional Past Medical History / Comment(s): alcoholic cirrhosis History of Any Multi-Drug Resistant Organisms: None Reported Past Surgical History: No Surgical Hx Reported Past Anesthesia/Blood Transfusion Reactions: No Reported Reaction Past Psychological History: No Psychological Hx Reported Smoking Status: Current every day smoker Past Alcohol Use History: Abuse, Daily, Heavy Past Drug Use History: Marijuana - Past Family History Father Family Medical History: Cancer General Exam Limitations: no limitations Course Vital Signs 06/09/22 13:05 Temperature 98.6 F Pulse Rate 95 Respiratory 20 Rate Blood Pressure 127/82 O2 Sat by Pulse 96 Oximetry Medical Decision Making - Lab Data Result diagrams: 06/09/22 15:10 06/09/22 14:27 Lab Results 06/09/22 06/09/22 Range/Units 14:27 15:10 WBC 7.1 (3.8-10.6) k/uL RBC 3.99 L (4.30-5.90) m/uL Hgb 14.1 (13.0-17.5) gm/dL Hct 41.7 (39.0-53.0) % MCV 104.6 H (80.0-100.0) fL MCH 35.4 H (25.0-35.0) pg MCHC 33.8 (31.0-37.0) g/dL RDW 14.1 (11.5-15.5) % Plt Count 194 (150-450) k/uL MPV 8.1 Neutrophils % 32 % Lymphocytes % 53 % Monocytes % 5 % Eosinophils % 5 % Basophils % 2 % Neutrophils # 2.3 (1.3-7.7) k/uL Lymphocytes # 3.7 (1.0-4.8) k/uL Monocytes # 0.3 (0-1.0) k/uL Eosinophils # 0.4 (0-0.7) k/uL Basophils # 0.2 (0-0.2) k/uL Macrocytosis Moderate Sodium 141 (137-145) mmol/L Potassium 5.4 H (3.5-5.1) mmol/L Chloride 108 H (98-107) mmol/L Carbon Dioxide 22 (22-30) mmol/L Anion Gap 11 mmol/L BUN 6 L (9-20) mg/dL Creatinine 0.47 L (0.66-1.25) mg/dL Est GFR (CKD-EPI)AfAm >90 (>60 ml/min/1.73 sqM) Est GFR (CKD-EPI)NonAf >90 (>60 ml/min/1.73 sqM) Glucose 88 (74-99) mg/dL Calcium 8.7 (8.4-10.2) mg/dL Magnesium 1.7 (1.6-2.3) mg/dL Total Bilirubin 0.7 (0.2-1.3) mg/dL AST 108 H (17-59) U/L ALT 41 (4-49) U/L Alkaline Phosphatase 123 (38-126) U/L Total Protein 7.2 (6.3-8.2) g/dL Albumin 4.6 (3.5-5.0) g/dL Serum Alcohol 324 H* mg/dL Disposition Clinical Impression: Alcoholic intoxication, Suicidal ideation Disposition: ADMITTED IP TO THIS HOSP Condition: Fair Decision Time: 15:34
[2022-06-09] MEDS ORDERED: LORazepam 1 MG TAB PO STA (14:40)
[2022-06-09 14:54] LABS: ALT 41 U/L (4-49); African American GFR (CKD) >90 (>60 ml/min/1.73 sqM); Albumin 4.6 g/dL (3.5-5.0); Anion Gap 11 mmol/L; Blood Urea Nitrogen 6 mg/dL (9-20); Calcium 8.7 mg/dL (8.4-10.2); Carbon Dioxide 22 mmol/L (22-30); Chloride 108 mmol/L (98-107); Glucose 88 mg/dL (74-99); Non-African American GFR(CKD) >90 (>60 ml/min/1.73 sqM); Sodium 141 mmol/L (137-145); Total Bilirubin 0.7 mg/dL (0.2-1.3); Total Protein 7.2 g/dL (6.3-8.2)
[2022-06-09 14:59] LABS: AST 108 U/L (17-59); Alkaline Phosphatase 123 U/L (38-126); Magnesium 1.7 mg/dL (1.6-2.3); Potassium 5.4 mmol/L (3.5-5.1)
[2022-06-09] MEDS ORDERED: THIAMINE 100 MG/ML 2 ML VIAL IM STA (15:14)
[2022-06-09] MEDS ORDERED: LORazepam 2 MG/ML INJ IV PRN ×2 (15:14)
[2022-06-09] MEDS ORDERED: NALOXONE 0.4 MG/ML 1 ML VIAL IV PRN (15:15)
[2022-06-09 15:27] LABS: Basophils # (A) 0.2 k/uL (0-0.2); Basophils % (A) 2 %; Eosinophils # (A) 0.4 k/uL (0-0.7); Eosinophils % (A) 5 %; HCT 41.7 % (39.0-53.0); HGB 14.1 gm/dL (13.0-17.5); Lymphocytes # (A) 3.7 k/uL (1.0-4.8); Lymphocytes % (A) 53 %; MCH 35.4 pg (25.0-35.0); MCHC 33.8 g/dL (31.0-37.0); MCV 104.6 fL (80.0-100.0); Macrocytosis Moderate; Mean Platelet Volume 8.1; Monocytes # (A) 0.3 k/uL (0-1.0); Monocytes % (A) 5 %; Neutrophils # (A) 2.3 k/uL (1.3-7.7); Neutrophils % (A) 32 %; Platelet Count 194 k/uL (150-450); RBC 3.99 m/uL (4.30-5.90); RDW 14.1 % (11.5-15.5); WBC 7.1 k/uL (3.8-10.6)
[2022-06-09] MEDS: LORazepam 2 MG/ML INJ IV PRN ×2 (20:34→23:45)
[2022-06-09] MEDS: ONDANSETRON 4 MG/2 ML VIAL IVP PRN (22:13)
--- NOTE | 2022-06-09 23:14 | HP ---
HISTORY AND PHYSICAL HISTORY OF PRESENT ILLNESS: This is a 51-year-old gentleman who has a past medical history of alcoholic cirrhosis and liver disease, was drinking heavily up to 2 pints. The patient was admitted with significant alcohol intoxication with alcohol level 324 and as well as some suicidal ideations. There is no history of any fever, rigors, or chills at this time. PAST MEDICAL HISTORY: History of alcohol and alcohol cirrhosis. The rest of the history and chart reviewed. HOME MEDICATIONS: None. ALLERGIES: None. FAMILY HISTORY: History of cancer in the family. SOCIAL HISTORY: Smoking and alcohol. REVIEW OF SYSTEMS: A 14-point review of systems is negative except as mentioned earlier. PHYSICAL EXAMINATION: VITAL SIGNS: Pulse 95, blood pressure 127/80, respirations 20. HEENT : Conjunctivae normal. NECK: No JVD. CARDIOVASCULAR: S1, S2 normal. RESPIRATIONS: Breath sounds diminished at the bases. A few scattered rhonchi. ABDOMEN: Soft, nontender. No ascites. LEGS: No edema. NERVOUS SYSTEM: Diffusely weak. SKIN: No ulcer, rash, bleeding. JOINTS: No active deforming arthropathy. LABS: Reviewed. ASSESSMENT: 1. Acute alcohol intoxication. 2. Suicidal ideation. 3. History of alcoholic cirrhosis and chronic liver disease. RECOMMENDATIONS AND DISCUSSION: This is a 51-year-old gentleman who presented with multiple complex medical issues. At this time, I recommend to continue the current medications. WA protocol. Psychiatric consultation. Repeat labs. Prognosis guarded because of multiple complex medical issues. Alcohol cessation has been recommended and social professionals to follow and discharge plan to follow up on setting up the patient for rehab. Further recommendations to follow. MMODL / IJN: [id number] /
[2022-06-10] MEDS: LORazepam 2 MG/ML INJ IV PRN (04:03)
[2022-06-10] MEDS: ONDANSETRON 4 MG/2 ML VIAL IVP PRN (04:04)
[2022-06-10 06:46] LABS: Alcohol 324 mg/dL
[2022-06-10] MEDS: FAMOTIDINE 20 MG TAB PO SCH ×2 (09:55→20:41)
[2022-06-10] MEDS: diazePAM 2 MG TAB PO SCH ×3 (09:55→20:41)
[2022-06-10] MEDS: THIAMINE 100 MG TAB PO SCH (09:55)
[2022-06-10] MEDS: METOPROLOL TARTRATE 12.5 MG TAB PO SCH ×2 (09:55→20:41)
[2022-06-10] MEDS: ACETAMINOPHEN TAB 500 MG TAB PO PRN ×2 (09:57→20:40)
[2022-06-10 10:41] LABS: Basophils # (A) 0.12 X 10*3/uL (0.00-0.10); Basophils % (A) 1.7 %; Eosinophils # (A) 0.43 X 10*3/uL (0.04-0.35); HCT 35.9 % (39.6-50.0); HGB 11.8 g/dL (13.0-17.0); Immature Grans, Automated 0.4 %; Lymphocytes # (A) 3.19 X 10*3/uL (0.90-5.00); Lymphocytes % (A) 44.9 %; MCH 34.1 pg (27.0-32.0); MCHC 32.9 g/dL (32.0-37.0); MCV 103.8 fL (80.0-97.0); Monocytes % (A) 12.7 %; NRBC Per 100 WBC 0 /100 WBCS (0.0-0.0); Neutrophils # (A) 2.44 X 10*3/uL (1.80-7.70); Neutrophils % (A) 34.3 %; Platelet Count 170 X 10*3/uL (140-440); RBC 3.46 X 10*6/uL (4.40-5.60); RDW 15.7 % (11.5-14.5); WBC 7.11 X 10*3/uL (4.50-10.00)
[2022-06-10 10:59] LABS: African American GFR (CKD) 128.4 (60.0-200.0); Albumin 3.9 g/dL (3.8-4.9); Albumin/Globulin Ratio 2.05 (1.60-3.17); Anion Gap 10.2 mmol/L (10.00-18.00); BUN/Creat Ratio 12.57 Ratio (12.00-20.00); Blood Urea Nitrogen 8.8 mg/dL (9.0-27.0); Calcium 8.7 mg/dL (8.7-10.3); Carbon Dioxide 25.8 mmol/L (20.0-27.5); Globulin 1.9 g/dL (1.6-3.3); Non-African American GFR(CKD) 110.8 (60.0-200.0); Total Bilirubin 0.9 mg/dL (0.30-1.20); Total Protein 5.8 g/dL (6.2-8.2)
[2022-06-10] MEDS: NICOTINE 21MG/24HR PATCH TRANSDERM SCH (11:50)
[2022-06-10 12:36] VITALS: BMI 18.4
[2022-06-10] MEDS ORDERED: NALTREXONE HCL 50 MG TAB PO STA (13:23)
--- NOTE | 2022-06-10 13:35 | P.CN ---
Psychiatric Consult - . Consult date: 06/10/22 Consult:: 06/10/22 13:34 IDENTIFYING DATA: This patient is a , employed, 51-year-old male with a significant history of alcohol use disorder who presents for hospital for acute alcohol intoxication and suicidal ideation. HISTORY OF PRESENT ILLNESS: The patient presented to the hospital on 06/09/2022, who presented to the emergency department with a request for alcohol detoxification. Reportedly, the patient was endorsing suicidal ideation with plan to shoot himself if he had the chance. He is subsequently admitted to the medical floor for alcohol detoxification. Upon evaluation on the medical floor, the patient is currently sober and is vehemently denying any suicidal or homicidal ideation, intention, and/or plan. He reports no previous attempts at suicide. He states that he was feeling increasingly stressed out because of a disagreement with his father. He reports that his father recently sold the [employer] and [employer] and that the new labor and employment paralegal was offering him his job back at a significant pay cut. The patient expresses that he was upset with his father and was intoxicated at the time and stated that he was suicidal in order to affect him. Patient reports no significant symptoms of depression at this time. He is denying any anhedonia, change in hygiene and grooming, she or change in appetite. He does report an overall poor sleep chemistry however states that he has been drinking a pint of liquor every day for the past 12 years. The patient reports significant history of alcohol use disorder. He states that he began drinking heavily after his divorce 12 years a go. He reports that he was to his ex- for 19 years. He has a 26-year-old son, 24-year-old daughter, and 16-year-old son. The patient denies any previous history of psychiatric illness. He reports no history of auditory or visual hallucinations. He denies any history of paranoia or other delusions. PAST PSYCHIATRIC HISTORY: Patient reports no significant psychiatric history. Patient denies being on any psychiatric medications. Patient denies any previous psychiatric hospitalizations. Patient denies any psychiatric outpatient follow- up. Patient denies any history of suicide attempts in the past. PAST MEDICAL HISTORY: Past Medical History: Liver Disease Additional Past Medical History / Comment(s): alcoholic cirrhosis History of Any Multi-Drug Resistant Organisms: None Reported Past Surgical History: No Surgical Hx Reported Past Anesthesia/Blood Transfusion Reactions: No Reported Reaction Past Psychological History: No Psychological Hx Reported Smoking Status: Current every day smoker Past Alcohol Use History: Abuse, Daily, Heavy Past Drug Use History: Marijuana ALLERGIES: as known drug ALLERGIES CHEMICAL DEPENDENCY HISTORY: Patient reports that he has been drinking approximately a pint of vodka every day for the last 12 years. Reports drinking heavily before that. He denies any substance abuse treatment it is expressing interest to go to inpatient rehabilitation at this time. He is also interested in starting naltrexone. He reports a one pack per day of tobacco use. He reports marijuana on rare occasions. He denies any other drug abuse. FAMILY PSYCHIATRIC/SUBSTANCE USE HISTORY: No reported family history of mental illness. SOCIAL HISTORY: Patient is currently employed with the [employer] at [employer]. He reports that his father recently sold the business last Friday. He is as of 12 years ago after being for 19 years. He has a 26 year-old son, 24-year-old daughter, and 16-year-old son. He reports that his 26-year-old son is the one who drove him to the hospital and that he lives with his 24-year-old daughter and her 2 children. 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 MENTAL STATUS EXAM: General Appearance: Patient appears to be stated age is alert, pleasant, and cooperative. Patient appears to have fair hygiene and grooming wearing hospital gown with fair eye contact. Behavior: Patient is calmly lying in bed without any agitated behavior. Speech: Patient's speech is fluent and nonpressured. Mood/Affect: Patient reports their mood is "feeling better", affect is congruent Suicidality/Homicidality: Patient denies having any suicidal or homicidal ideation intent or plan. Perceptions: Patient denies any visual hallucinations and denies any auditory hallucinations Though content/process: There is no evidence of any delusional thought content and thought process is linear and goal-directed. Memory and concentration: AOX3, grossly intact for the purposes of this session. 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 Currently, the patient is future and goal oriented and has numerous protective factors including strong family support, future orientation, and no prior attempts at suicide. He also has no access to firearms. Risk factors include his divorce as well as his alcohol use disorder. -Would recommend the following medication changes/additions: We will start naltrexone 50 mg by mouth daily for alcohol use disorder; risks, benefits, and treatment alternatives were discussed with the patient in great detail. He expresses strong desire to start naltrexone. -Discontinue one-to-one sitter -Recommend social work consult to provide patient with resources for inpatient and outpatient substance abuse rehabilitation. -Recommend outpatient psychiatric and primary care follow-up. -Psychiatry will sign off at this point, please contact with any questions. Vital Signs Temp 98.1 F 06/10/22 07:00 Pulse 83 06/10/22 07:00 Resp 18 06/10/22 07:00 BP 125/82 06/10/22 07:00 Pulse Ox 95 06/10/22 07:00 FiO2 Intake & Output 06/09/22 06/10/22 06/10/22 18:59 06:59 18:59 Weight 56.699 kg 56.699 kg Other: # Voids 1 Laboratory Results WBC 7.11 X 10*3/uL (4.50-10.00) 06/10/22 06:39 RBC 3.46 X 10*6/uL (4.40-5.60) L 06/10/22 06:39 Hgb 11.8 g/dL (13.0-17.0) L 06/10/22 06:39 Hct 35.9 % (39.6-50.0) L 06/10/22 06:39 MCV 103.8 fL (80.0-97.0) H 06/10/22 06:39 MCH 34.1 pg (27.0-32.0) H 06/10/22 06:39 MCHC 32.9 g/dL (32.0-37.0) 06/10/22 06:39 RDW 15.7 % (11.5-14.5) H 06/10/22 06:39 Plt Count 170 X 10*3/uL (140-440) 06/10/22 06:39 MPV 10.0 fL (9.5-12.2) 06/10/22 06:39 Immature Gran % (Auto) 0.4 % 06/10/22 06:39 Absolute Nucleated RBC 0 X 10*3/uL (0.00-0.00) 06/10/22 06:39 Neutrophils % 34.3 % 06/10/22 06:39 Lymphocytes % 44.9 % 06/10/22 06:39 Monocytes % 12.7 % 06/10/22 06:39 Eosinophils % 6.0 % 06/10/22 06:39 Basophils % 1.7 % 06/10/22 06:39 Immature Gran # 0.03 X 10*3/uL (0.00-0.04) 06/10/22 06:39 Neutrophils # 2.44 X 10*3/uL (1.80-7.70) 06/10/22 06:39 Lymphocytes # 3.19 X 10*3/uL (0.90-5.00) 06/10/22 06:39 Monocytes # 0.90 X 10*3/uL (0.20-1.00) 06/10/22 06:39 Eosinophils # 0.43 X 10*3/uL (0.04-0.35) H 06/10/22 06:39 Basophils # 0.12 X 10*3/uL (0.00-0.10) H 06/10/22 06:39 NRBC/100 WBC Diff 0 /100 WBCS (0.0-0.0) 06/10/22 06:39 Macrocytosis Moderate 06/09/22 15:10 Sodium 134 mmol/L (135-145) L 06/10/22 06:39 Potassium 4.0 mmol/L (3.5-5.5) 06/10/22 06:39 Chloride 98 mmol/L (96-109) 06/10/22 06:39 Carbon Dioxide 25.8 mmol/L (20.0-27.5) 06/10/22 06:39 Anion Gap 10.20 mmol/L (10.00-18.00) 06/10/22 06:39 BUN 8.8 mg/dL (9.0-27.0) L 06/10/22 06:39 Creatinine 0.7 mg/dL (0.6-1.5) 06/10/22 06:39 Est GFR (CKD-EPI)AfAm 128.4 (60.0-200.0) 06/10/22 06:39 Est GFR (CKD-EPI)NonAf 110.8 (60.0-200.0) 06/10/22 06:39 BUN/Creatinine Ratio 12.57 Ratio (12.00-20.00) 06/10/22 06:39 Glucose 107 mg/dL (70-110) 06/10/22 06:39 Calcium 8.7 mg/dL (8.7-10.3) 06/10/22 06:39 Magnesium 1.7 mg/dL (1.6-2.3) 06/09/22 14:27 Total Bilirubin 0.90 mg/dL (0.30-1.20) 06/10/22 06:39 AST 63 U/L (14-35) H 06/10/22 06:39 ALT 32 U/L (10-49) 06/10/22 06:39 Alkaline Phosphatase 89 U/L (41-126) 06/10/22 06:39 Ammonia 25 umol/L (<30) 06/10/22 06:39 Total Protein 5.8 g/dL (6.2-8.2) L 06/10/22 06:39 Albumin 3.9 g/dL (3.8-4.9) 06/10/22 06:39 Globulin 1.9 g/dL (1.6-3.3) 06/10/22 06:39 Albumin/Globulin Ratio 2.05 g/dL (1.60-3.17) 06/10/22 06:39 Serum Alcohol 324 mg/dL H* 06/09/22 14:27 Allergies Allergy/AdvReac Type Severity Reaction Status Date / Time No Known Allergies Allergy Verified 06/09/22 16:29 06/10/22 13:34
--- NOTE | 2022-06-10 23:21 | P.PN ---
Progress Note - Text Progress Note Date: 06/10/22 Presenting complaint: Alcohol intoxication Hospital course: Patient presented to the ER with request for alcohol detoxification and suicidal ideation. Started on CIWA scale. Patient has previous injury to left shoulder and has outpatient follow-up with orthopedics 06/10/2022: I assumed care of the patient today from [facility]. Sitting up in bed. Eating breakfast. Had vomiting and nausea last night. Heartburn. Anxious. Tremors. Valium 2 mg 3 times a day added. Patient counseled. Active Medications Acetaminophen (Acetaminophen Tab 500 Mg Tab) 500 mg PO Q4HR PRN PRN Reason: Fever and/ or Pain Last Admin: 06/10/22 20:40 Dose: 500 mg Diazepam (Diazepam 2 Mg Tab) 2 mg PO TID [facility] Last Admin: 06/10/22 20:41 Dose: 2 mg Famotidine (Famotidine 20 Mg Tab) 20 mg PO BID [facility] Last Admin: 06/10/22 20:41 Dose: 20 mg Lorazepam (Lorazepam 2 Mg/Ml Inj) 1 mg IV Q1HR PRN PRN Reason: CIWA 10 to 15 Lorazepam (Lorazepam 2 Mg/Ml Inj) 1 mg IV Q2HR PRN PRN Reason: CIWA 8 or 9 Last Admin: 06/10/22 04:03 Dose: 1 mg Lorazepam (Lorazepam 2 Mg/Ml Inj) 2 mg IV Q10M PRN PRN Reason: CIWA 16 or higher Stop: 06/11/22 15:14 Metoprolol Tartrate (Metoprolol Tartrate 12.5 Mg Tab) 12.5 mg PO BID [facility] Last Admin: 06/10/22 20:41 Dose: 12.5 mg Naloxone HCl (Naloxone 0.4 Mg/Ml 1 Ml Vial) 0.2 mg IV Q2M PRN PRN Reason: Opioid Reversal Naltrexone HCl (Naltrexone Hcl 50 Mg Tab) 50 mg PO DAILY [facility] Nicotine (Nicotine 21mg/24hr Patch) 1 patch TRANSDERM DAILY [facility] Last Admin: 06/10/22 11:50 Dose: 1 patch Ondansetron HCl (Ondansetron 4 Mg/2 Ml Vial) 4 mg IVP Q6HR PRN PRN Reason: Nausea And Vomiting Last Admin: 06/10/22 04:04 Dose: 4 mg Thiamine HCl (Thiamine 100 Mg Tab) 100 mg PO DAILY [facility] Last Admin: 06/10/22 09:55 Dose: 100 mg On examination: VITAL SIGNS: 98.1, 83, 18, 125/82, 95% room air[] GENERAL APPEARANCE: Sitting up in bed, eating breakfast HEENT: Normal external appearance of nose and ear. Oral cavity normal EYES: Pupils equal. Conjunctiva normal. NECK: JVD not raised. Mass not palpable. RESPIRATORY: Respiratory effort normal. Lungs clear to auscultation. CARDIOVASCULAR: First and second sounds normal. No edema. ABDOMEN: Soft. Liver and spleen not palpable. No tenderness. No mass palpable. PSYCHIATRY: Alert and oriented x3. Mood and affect anxious NEUROLOGICAL: Tremors INVESTIGATIONS, reviewed in the clinical context: White count 7.1 hemoglobin 11.8 platelets 170 potassium 4 BUN 8.8 creatinine 0.7 AST 63 ALT 32 Admission serum alcohol 324 Assessment and plan: -Alcohol withdrawal syndrome Add Valium 2 mg 3 times a day scheduled. Continue CIWA scale. -h suicidal ideation on presentation. This morning patient also suicidal. Psychiatry was consulted. 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 Cooper from psychiatry this afternoon. He started the patient on naltrexone. -Chronic nicotine dependence, cigarette smoker Nicotine patch -Recreational marijuana use Add Valium 2 mg 3 times a day. CIWA scale. Activity as tolerated. Soft bland diet. Pepcid. Naltrexone. Watch for another 24 hours.
[2022-06-11] MEDS: ACETAMINOPHEN TAB 500 MG TAB PO PRN (07:50)
[2022-06-11] MEDS: FAMOTIDINE 20 MG TAB PO SCH (08:33)
[2022-06-11] MEDS: diazePAM 2 MG TAB PO SCH (08:34)
[2022-06-11] MEDS: THIAMINE 100 MG TAB PO SCH (08:34)
[2022-06-11] MEDS: METOPROLOL TARTRATE 12.5 MG TAB PO SCH (08:34)
[2022-06-11] MEDS: NICOTINE 21MG/24HR PATCH TRANSDERM SCH (08:34)
[2022-06-11 08:50] VITALS: RESP 14
[2022-06-11] MEDS ORDERED: NALTREXONE HCL 50 MG TAB PO SCH (09:00)
[2022-06-11 12:16] VITALS: BP 129/91; PULSE 80; TEMP 99.4
--- NOTE | 2022-06-11 16:41 | P.DS ---
Providers Date of admission: 06/09/22 15:15 Expected date of discharge: 06/11/22 Attending physician: Ismael Huff Consults: 06/09/22 15:14 Consult Physician Routine Consulting Provider: Psychiatry - [facility] Psychiatry Consult Reason/Comments: suicidal Do you want consulting provider notified?: Yes Primary care physician: Jhon Patterson [facility] Course: Presenting complaint: Alcohol intoxication Hospital course: Patient presented to the ER with request for alcohol detoxification and suicidal ideation. Started on CIWA scale. Patient has previous injury to left shoulder and has outpatient follow-up with orthopedics 06/10/2022: I assumed care of the patient today from [facility]. Sitting up in bed. Eating breakfast. Had vomiting and nausea last night. Heartburn. Anxious. Tremors. Valium 2 mg 3 times a day added. Patient counseled. 06/11/2022: Valium discontinued. Patient be discharged on naltrexone. 90 discussion with the patient about alcoholism. He is trying to go to [place] also sternal get his father's health. Spoke to the community case manager. Resources given. Nicotine patch. Discussion and discharge planning more than 35 minutes On examination: VITAL SIGNS: 99.4, 80, 14, 129.91, 98% room air GENERAL APPEARANCE: Sitting up in bed, comfortable HEENT: Normal external appearance of nose and ear. Oral cavity normal EYES: Pupils equal. Conjunctiva normal. NECK: JVD not raised. Mass not palpable. RESPIRATORY: Respiratory effort normal. Lungs clear to auscultation. CARDIOVASCULAR: First and second sounds normal. No edema. ABDOMEN: Soft. Liver and spleen not palpable. No tenderness. No mass palpable. PSYCHIATRY: Alert and oriented x3. Mood and affect a bit anxious NEUROLOGICAL: Much improved Tremors INVESTIGATIONS, reviewed in the clinical context: COVID 19 not detected White count 7.1 hemoglobin 11.8 platelets 170 potassium 4 BUN 8.8 creatinine 0.7 AST 63 ALT 32 Admission serum alcohol 324 Assessment and plan: -Alcohol withdrawal syndrome: Improved Stop Valium. 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 Cooper from psychiatry this afternoon. He started the patient on naltrexone. -Chronic nicotine dependence, cigarette smoker Nicotine patch -Recreational marijuana use Disposition: Home. Patient is intending to go to [place] Patient Condition at Discharge: Fair Plan - Discharge Summary Discharge Rx Participant: Yes New Discharge Prescriptions: New Nicotine 21Mg/24Hr Patch [Habitrol] 1 patch TRANSDERM DAILY #14 patch Thiamine [Vitamin B-1] 100 mg PO DAILY #30 tab Multivitamin [Multivitamins Adult Gummies] 1 each PO DAILY #30 tablet Famotidine [Pepcid] 20 mg PO BID #60 tab Naltrexone HCl [Revia] 50 mg PO DAILY #30 tab Discharge Medication List Famotidine [Pepcid] 20 mg PO BID #60 tab 06/11/22 [Rx] Multivitamin [Multivitamins Adult Gummies] 1 each PO DAILY #30 tablet 06/11/22 [Rx] Naltrexone HCl [Revia] 50 mg PO DAILY #30 tab 06/11/22 [Rx] Nicotine 21Mg/24Hr Patch [Habitrol] 1 patch TRANSDERM DAILY #14 patch 06/11/22 [Rx] Thiamine [Vitamin B-1] 100 mg PO DAILY #30 tab 06/11/22 [Rx] Follow up Appointment(s)/Referral(s): Jhon Patterson MD [Primary Care Provider] - 1-2 days Patient Instructions/Handouts: Alcohol Intoxication (DC) Activity/Diet/Wound Care/Special Instructions: ensure 1 can po tid Discharge Disposition: HOME SELF-CARE
== END 2022-06-11 14:41 | disposition home or self-care (01) ==
LOC: EC 13:04 → 6NMEDSUR 15:15
PROVIDERS: ADMIT Hospitalist; ATTEND Hospitalist
DX: F10.239 Alcohol dependence with withdrawal, unspecified (principal); F10.220 Alcohol dependence with intoxication, uncomplicated; K70.30 Alcoholic cirrhosis of liver without ascites; F43.25 Adjustment disorder with mixed disturbance of emotions and conduct; F17.210 Nicotine dependence, cigarettes, uncomplicated; F12.90 Cannabis use, unspecified, uncomplicated; Z20.822 Contact with and (suspected) exposure to COVID-19; Z79.899 Other long term (current) drug therapy; Z80.9 Family history of malignant neoplasm, unspecified; Y90.7 Blood alcohol level of 200-239 mg/100 ml
CPT/HCPCS: 96374; 96375; 96376 ×2; 96372; 99285; 36415; 93005; 80053 ×2; 82140; 83735; 85025 ×2; 87635; G0378 ×3; G0480; S4990 ×3; J2060 ×2; J3411; J2405 ×2; 80320

== ENCOUNTER 2024-06-05 17:51 | Observation (INO) | payer OTHER ==
[2024-06-05] MEDS: KETOROLAC 15 MG/ML 1 ML VIAL IVP STA (18:29)
[2024-06-05] MEDS: SODIUM CHLORIDE 0.9% 1,000 ML IV ONE (18:30)
[2024-06-05 18:36] LABS: Basophils # (A) 0.2 k/uL (0-0.2); Basophils % (A) 2 %; Eosinophils # (A) 0.1 k/uL (0-0.7); Eosinophils % (A) 1 %; HCT 50.4 % (39.0-53.0); HGB 16.5 gm/dL (13.0-17.5); Lymphocytes # (A) 3.2 k/uL (1.0-4.8); Lymphocytes % (A) 31 %; MCHC 32.6 g/dL (31.0-37.0); MCV 116.5 fL (80.0-100.0); Macrocytosis Marked; Mean Platelet Volume 7.3; Monocytes # (A) 0.6 k/uL (0-1.0); Monocytes % (A) 6 %; Neutrophils # (A) 6.1 k/uL (1.3-7.7); Neutrophils % (A) 60 %; Platelet Count 214 k/uL (150-450); RBC 4.33 m/uL (4.30-5.90); WBC 10.2 k/uL (3.8-10.6)
[2024-06-05 18:52] LABS: ALT 83 U/L (4-49); African American GFR (CKD) >90 (>60 ml/min/1.73 sqM); Albumin 4.5 g/dL (3.5-5.0); Anion Gap 15 mmol/L; Blood Urea Nitrogen 6 mg/dL (9-20); Calcium 8.6 mg/dL (8.4-10.2); Carbon Dioxide 24 mmol/L (22-30); Chloride 102 mmol/L (98-107); Glucose 101 mg/dL (74-99); Non-African American GFR(CKD) >90 (>60 ml/min/1.73 sqM); Sodium 141 mmol/L (137-145)
[2024-06-05] MEDS: NICOTINE 21MG/24HR PATCH TRANSDERM STA (19:20)
--- NOTE | 2024-06-05 19:27 | ED ---
General Adult HPI - General Chief complaint: Alcohol Stated complaint: ETOH, Suicidal ideations Time Seen by Provider: 06/05/24 18:00 Source: patient, EMS, RN notes reviewed, old records reviewed Mode of arrival: EMS Limitations: no limitations - History of Present Illness Initial comments: 53-year-old male presenting with alcohol intoxication. Patient had apparently made suicidal comments to family members. This was reported by paramedics. Patient denying suicidal ideation or suicidal comments at the time my evaluation. Does admit to heavy alcohol consumption. Patient's main complaint is headache which she believes is secondary to heavy drinking over the past 5 to 7 days. - Related Data Home Medications Medication Instructions Recorded Confirmed No Known Home Medications 06/05/24 06/05/24 Allergies Allergy/AdvReac Type Severity Reaction Status Date / Time No Known Allergies Allergy Verified 06/05/24 19:44 Review of Systems ROS Statement: Those systems with pertinent positive or pertinent negative responses have been documented in the HPI. ROS Other: All systems not noted in ROS Statement are negative. Past Medical History Past Medical History: Liver Disease Additional Past Medical History / Comment(s): alcoholic cirrhosis History of Any Multi-Drug Resistant Organisms: None Reported Past Surgical History: No Surgical Hx Reported Past Anesthesia/Blood Transfusion Reactions: No Reported Reaction Past Psychological History: No Psychological Hx Reported Smoking Status: Current every day smoker Past Alcohol Use History: Abuse, Daily, Heavy Past Drug Use History: Marijuana - Past Family History Father Family Medical History: Cancer General Exam Limitations: no limitations General appearance: alert, appears intoxicated Head exam: Present: atraumatic, normocephalic Eye exam: Present: normal appearance, PERRL ENT exam: Present: mucous membranes dry Neck exam: Present: normal inspection. Absent: tenderness, meningismus Respiratory exam: Present: normal lung sounds bilaterally. Absent: respiratory distress, wheezes Cardiovascular Exam: Present: normal rhythm, tachycardia GI/Abdominal exam: Present: soft. Absent: distended, tenderness, guarding Extremities exam: Present: normal inspection, normal capillary refill Neurological exam: Present: alert, oriented X3, CN II-XII intact, normal gait. Absent: motor sensory deficit Psychiatric exam: Present: depressed Skin exam: Present: warm, dry, intact Course Vital Signs 06/05/24 17:56 Temperature 98.3 F Pulse Rate 108 H Respiratory 18 Rate Blood Pressure 142/93 O2 Sat by Pulse 95 Oximetry Medical Decision Making - Medical Decision Making Was pt. sent in by a medical professional or institution ([facility]AN[facility] Blake, [employer], urgent care, hospital, or jail...) When possible be specific @ -No Did you speak to anyone other than the patient for history (EMS, parent, family, police, friend...)? What history was obtained from this source @ -No Did you review nursing and triage notes (agree or disagree)? Why? @ -I reviewed and agree with nursing and triage notes Were old charts reviewed (outside hosp., previous admission, EMS record, old EKG, old radiological studies, urgent care reports/EKG's, jail records)? Report findings @ -No old charts were reviewed Differential Mental Health Depression, anxiety, bipolar, psychosis, schizophrenia, borderline personality, situational depression, adjustment disorder, behavioral disorder, brain tumor, malingering, substance abuse, encephalopathy, medication reaction, dementia, hypothyroidism, degenerative neurologic disorder, lupus.... This is not meant to be all-inclusive list EKG interpreted by me (3pts min.). @ -As above X-rays interpreted by me (1pt min.). @ -None done CT interpreted by me (1pt min.). @ -None done U/S interpreted by me (1pt. min.). @ -None done What testing was considered but not performed or refused? (CT, X-rays, U/S, labs)? Why? @ -None What meds were considered but not given or refused? Why? @ -None Did you discuss the management of the patient with other professionals (maurice acharya i.eDANNA Plummer Dr[address] [employer], lab, RT, psych nurse, clinical social work therapist, pellet mill operator, teacher, hospital chief financial officer, porter sample case)? Give summary @EM Was smoking cessation discussed for >3mins.? @ -No Was critical care preformed (if so, how long)? @ -yes, alcohol poisoning, delirium tremens, suicidal ideation Were there social determinants of health that impacted care today? How? (Homelessness, low income, unemployed, alcoholism, drug addiction, transportation, low edu. Level, literacy, decrease access to med. care, halfway, rehab)? @ -No Was there de-escalation of care discussed even if they declined (Discuss DNR or withdrawal of care, Hospice)? DNR status @ -No What co-morbidities impacted this encounter? (DM, HTN, Smoking, COPD, CAD, Cancer, CVA, ARF, Chemo, Hep., AIDS, mental health diagnosis, sleep apnea, morbid obesity)? @ -None Was patient admitted / discharged? Hospital course, mention meds given and route, prescriptions, significant lab abnormalities, going to OR and other pertinent info. @ -[53-year-old male presenting with alcohol intoxication and suicidal ideation. Patient currently denying suicidal thoughts but did make comments to family members prior to transport. His alcohol level is 370. He will be admitted for alcohol intoxication and psychiatry evaluation for possible suicidal ideation. Case discussed with Lilian ayers for [facility] Undiagnosed new problem with uncertain prognosis? @ -No Drug Therapy requiring intensive monitoring for toxicity (Heparin, Nitro, Insulin, Cardizem)? @ -No Were any procedures done? @ -No Diagnosis/symptom? @ -Alcohol intoxication, suicidal ideation Acute, or Chronic, or Acute on Chronic? @Acute Uncomplicated (without systemic symptoms) or Complicated (systemic symptoms)? @ -Default Side effects of treatment? @ -No Exacerbation, Progression, or Severe Exacerbation? @ -No Poses a threat to life or bodily function? How? (Chest pain, USA, MD, pneumonia, PE, COPD, DKA, ARF, appy, cholecystitis, CVA, Diverticulitis, Homicidal, Suicid al, threat to staff... and all critical care pts) @Yes, DTs, self-harm - Lab Data Result diagrams: 06/05/24 18:25 06/05/24 18:25 Lab Results 06/05/24 06/05/24 Range/Units 18:25 18:25 WBC 10.2 (3.8-10.6) k/uL RBC 4.33 (4.30-5.90) m/uL Hgb 16.5 (13.0-17.5) gm/dL Hct 50.4 (39.0-53.0) % MCV 116.5 H (80.0-100.0) fL MCH 38.0 H (25.0-35.0) pg MCHC 32.6 (31.0-37.0) g/dL RDW 13.0 (11.5-15.5) % Plt Count 214 (150-450) k/uL MPV 7.3 Neutrophils % 60 % Lymphocytes % 31 % Monocytes % 6 % Eosinophils % 1 % Basophils % 2 % Neutrophils # 6.1 (1.3-7.7) k/uL Lymphocytes # 3.2 (1.0-4.8) k/uL Monocytes # 0.6 (0-1.0) k/uL Eosinophils # 0.1 (0-0.7) k/uL Basophils # 0.2 (0-0.2) k/uL Manual Slide Review Performed Macrocytosis Marked A Sodium 141 (137-145) mmol/L Potassium 4.8 (3.5-5.1) mmol/L Chloride 102 (98-107) mmol/L Carbon Dioxide 24 (22-30) mmol/L Anion Gap 15 mmol/L BUN 6 L (9-20) mg/dL Creatinine 0.56 L (0.66-1.25) mg/dL Est GFR (CKD-EPI)AfAm >90 (>60 ml/min/1.73 sqM) Est GFR (CKD-EPI)NonAf >90 (>60 ml/min/1.73 sqM) Glucose 101 H (74-99) mg/dL Calcium 8.6 (8.4-10.2) mg/dL Magnesium 1.6 (1.6-2.3) mg/dL Total Bilirubin 2.0 H (0.2-1.3) mg/dL AST 267 H (17-59) U/L ALT 83 H (4-49) U/L Alkaline Phosphatase 120 (38-126) U/L Total Protein 7.3 (6.3-8.2) g/dL Albumin 4.5 (3.5-5.0) g/dL Serum Alcohol 368 H* mg/dL Critical Care Time Critical Care Time: Yes Total Critical Care Time: 35 Disposition Clinical Impression: Suicidal ideation, Alcoholic intoxication Disposition: ADMITTED IP TO THIS [facility] Condition: Stable Is patient prescribed a controlled substance at d/c from ED?: No Referrals: None,Stated [Primary Care Provider] - 1-2 days Time of Disposition: 19:50
[2024-06-05 19:40] LABS: AST 267 U/L (17-59); Alcohol 368 mg/dL; Alkaline Phosphatase 120 U/L (38-126); Magnesium 1.6 mg/dL (1.6-2.3); Potassium 4.8 mmol/L (3.5-5.1); Total Protein 7.3 g/dL (6.3-8.2)
[2024-06-05] MEDS ORDERED: LORazepam 2 MG/ML INJ IV PRN (19:43)
[2024-06-05] MEDS ORDERED: NALOXONE 0.4 MG/ML 1 ML VIAL IV PRN (19:45)
[2024-06-05] MEDS: LORazepam 2 MG/ML INJ IV PRN (19:56)
[2024-06-05] MEDS: SODIUM CHLORIDE 0.9% 1,000 ML IV SCH (20:29)
[2024-06-05] MEDS: ONDANSETRON 4 MG/2 ML VIAL IVP PRN (21:20)
[2024-06-06] MEDS: LORazepam 2 MG/ML INJ IV PRN (02:28)
[2024-06-06] MEDS: KETOROLAC 15 MG/ML 1 ML VIAL IVP PRN (02:31)
--- NOTE | 2024-06-06 12:02 | P.HPIM ---
History of Present Illness This is a pleasant 53 years old male with past medical history of alcoholic liver disease and cirrhosis. Presents because of alcoholic intoxication. He came from her asking for help to quit alcohol. As per documentation family mentioned comments from him about suicidal ideation. Currently there is no family member at bedside. Patient currently awake alert and oriented, he looks curled up in his bed, calm appropriate and relaxed. Denies any specific complaint. No chest pain or dyspnea. No other GI/ symptoms. No any fever or chills. No nausea vomiting. No headache weakness numbness or tingling. He smokes about 1 pack/day and he was counseled to quit and he agrees to the nicotine patch. Patient states that he drinks about fifth of liquor every day. But he denies illicit drugs. He has some occasional cough with pain associated with it. He is afebrile and vital stable. He is mildly tachycardic with heart rate 103 He has mild elevated liver enzymes with AST 267 and ALT 83 with bilirubin 2.0. Rest of CBC, BMP were unremarkable Review of Systems Review of systems CONSTITUTIONAL: No fever, no malaise, no fatigue. HEENT: No recent visual problems or hearing problems. Denied any sore throat. CARDIOVASCULAR: No orthopnea, PND, no palpitations, no syncope. PULMONARY: No shortness of breath, no cough, no hemoptysis. GASTROINTESTINAL: No diarrhea, no nausea, no vomiting, no abdominal pain. Normoactive bowel sounds. NEUROLOGICAL: No headaches, no weakness, no numbness. HEMATOLOGICAL: Denies any bleeding or petechiae. GENITOURINARY: Denies any burning micturition, frequency, or urgency. MUSCULOSKELETAL/RHEUMATOLOGICAL: Denies any joint pain, swelling, or any muscle pain. ENDOCRINE: Denies any polyuria or polydipsia. Past Medical History Past Medical History: Liver Disease Additional Past Medical History / Comment(s): alcoholic cirrhosis History of Any Multi-Drug Resistant Organisms: None Reported Past Surgical History: No Surgical Hx Reported Past Anesthesia/Blood Transfusion Reactions: No Reported Reaction Past Psychological History: No Psychological Hx Reported Smoking Status: Current every day smoker Past Alcohol Use History: Abuse, Daily, Heavy Past Drug Use History: Marijuana Additional Drug Use History / Comment(s): patient states he drinks 1/5th of vodka per day and smokes two packs of cigarettes and occassional marijuana use - Past Family History Father Family Medical History: Cancer Medications and Allergies Home Medications Medication Instructions Recorded Confirmed Type No Known Home Medications 06/05/24 06/05/24 History Allergies Allergy/AdvReac Type Severity Reaction Status Date / Time No Known Allergies Allergy Verified 06/05/24 19:44 Physical Exam Vitals: Vital Signs Temp Pulse Pulse Resp BP BP Pulse Ox 06/06/24 07:40 98.2 F 94 20 158/96 94 L 06/06/24 03:00 98.1 F 72 15 133/72 96 06/06/24 02:42 107 H 18 150/97 96 06/05/24 21:34 107 H 18 120/75 92 L 06/05/24 20:00 101 H 18 140/76 98 06/05/24 17:56 98.3 F 108 H 18 142/93 95 Intake and Output 06/05/24 06/06/24 06/06/24 22:59 06:59 14:59 Intake Total 1080 Balance 1080 Intake: Oral 1080 Other: # Voids 2 Weight 58.967 kg 58.967 kg GENERAL: The patient is alert and oriented x3, not in any acute distress. Well developed, well nourished. HEENT: Pupils are round and equally reacting to light. EOMI. No scleral icterus. No conjunctival pallor. Normocephalic, atraumatic. No pharyngeal erythema. No thyromegaly. CARDIOVASCULAR: S1 and S2 present. No murmurs, rubs, or gallops. PULMONARY: Chest is clear to auscultation, no wheezing , no crackles. ABDOMEN: Soft, nontender, nondistended, normoactive bowel sounds. No palpable organomegaly. MUSCULOSKELETAL: No joint swelling or deformity. EXTREMITIES: No cyanosis, clubbing, or pedal edema. NEUROLOGICAL: Gross neurological examination did not reveal any focal deficits. SKIN: No rashes. no petechiae. Results CBC & Chem 7: 06/05/24 18:25 06/05/24 18:25 Labs: Abnormal Lab Results - Last 24 Hours (Table) 06/05/24 06/05/24 Range/Units 18:25 18:25 MCV 116.5 H (80.0-100.0) fL MCH 38.0 H (25.0-35.0) pg Macrocytosis Marked A BUN 6 L (9-20) mg/dL Creatinine 0.56 L (0.66-1.25) mg/dL Glucose 101 H (74-99) mg/dL Total Bilirubin 2.0 H (0.2-1.3) mg/dL AST 267 H (17-59) U/L ALT 83 H (4-49) U/L Serum Alcohol 368 H* mg/dL Assessment and Plan Assessment: Alcohol use disorder at risk of alcohol withdrawal Depression with suicidal comments while he is intoxicated Alcoholic transaminitis Alcoholic liver disease and cirrhosis Mild anemia Plan: Continue with CIWA protocol and thiamine Psych team consult. Add Librium he is complaining from little chest pain on the left side with coughing. Given his risk factor we will need to check chest x-ray to rule out pneumonia Please note patient cannot leave AMA until he cleared by psychiatrist. If he tries to leave AMA then patient needs to be petitioned. Currently he agrees to stay in the hospital Continue with IV hydration Monitor liver enzymes and bilirubin. Suicidal precaution Labs and medication were reviewed.. Continue same treatment. Continue with symptomatic treatment. Resume home medication. Monitor labs and vitals. DVT and GI prophylaxis. Further recommendations as per clinical course of the patient DVT prophylaxis: Subcutaneous Lovenox GI Prophylaxis: Pepcid odd job worker consult Prognosis is guarded
--- NOTE | 2024-06-06 12:05 | P.CN ---
Psychiatric Consult - . 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 Patient is admitted for alcohol intoxication and psychiatry is consulted for suicidal ideations and alcohol abuse. HPI: states that he "overdrink" he drinks a fifth per day, last drink was yesterday. Current withdrawal symptoms include tremors, anxiety, headaches, hallucinations. He denies suicidal thoughts, homicidal ideations, past suicide attempts, command hallucinations, access to guns or weapons. States that stressors include paying his bills. Patient denies any suicidal or homicidal ideations intent or plan. At this time patient denies any auditory hallucinations. Patient denies any flight of ideas racing thoughts and increased in goal directed behavior. Patient admits to using marijuana occasionally. Denies other substance use PAST PSYCHIATRIC HISTORY: long history of alcohol use disorder. States that he is currently taking Zoloft but is unsure of the dosage. 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 [] Speech: Patient's speech is [fluent and nonpressured.] Mood/Affect: Patient reports their mood is "depressed", affect is congruent and constricted. Suicidality/Homicidality: Patient denies having any homicidal ideation intent or plan. [Denies any suicidal ideations intent or plan] Perceptions: Patient denies any auditory hallucinations. reports visual hallucinations Though content/process: [There is no evidence of any delusional thought content and thought process is linear and goal-directed.] Memory and concentration: AOX3, grossly intact for the purposes of this session. Can spell "WORLD" backwards Judgment and insight: [poor] IMPRESSIONS: patient has a long history of alcohol abuse. At this time, he is not interested in medication assisted treatment for alcohol use. His suicidal ideations were likely in the context of intoxication. Does not currently have suicidal ideations. That being said, he does appear quite depressed. DIAGNOSIS: Alcohol use disorder, depression unspecified (MDD vs alcohol induced depression) PLAN: -Continue current treatment of alcohol withdrawals -restart Zoloft, patient is unsure of his home dose, patient asked to call his pharmacy and asked for dose and let the primary team know -Counseled patient about importance of alcohol use treatment and going to rehab after discharge -Does not meet criteria for inpatient psychiatric hospitalization as he is currently not suicidal and is future oriented, the earlier suicidal ideations were likely due to intoxication as has been his past pattern -psychiatry will sign off 06/06/24 11:57
--- NOTE | 2024-06-06 12:35 | XR ---
EXAMINATION TYPE: XR chest 2V DATE OF EXAM: 06/06/2024 12:29 PM COMPARISON: 10/14/2020 CLINICAL INDICATION: Male, 53 years old with history of Chest pain with coughing, TECHNIQUE: XR chest 2V view(s) obtained. FINDINGS: The heart size is normal. The pulmonary vasculature is normal. The lungs are clear. Inflation plaquing of the diaphragms is present. IMPRESSION: 1. No acute pulmonary process. [facility], , 06/06/2024 12:32 PM
[2024-06-06] MEDS: NICOTINE 21MG/24HR PATCH TRANSDERM SCH (14:35)
[2024-06-06] MEDS: traMADol 50 MG TAB PO PRN (17:56)
[2024-06-06] MEDS: FAMOTIDINE 20 MG/2 ML VIAL IV SCH (21:36)
[2024-06-06] MEDS: guaiFENesin-DM 100-10MG/5ML 10 ML CUP PO PRN (21:36)
[2024-06-07] MEDS: ENOXAPARIN 40 MG/0.4 ML SYRINGE SQ SCH (07:54)
[2024-06-07 08:00] VITALS: PULSE 79; RESP 17
[2024-06-07 08:52] LABS: ALT 46 U/L (10-49); AST 93 U/L (14-35); Albumin 3.4 g/dL (3.8-4.9); Alkaline Phosphatase 96 U/L (41-126); Bilirubin, Conjugated 0.87 mg/dL (0.20-0.40); Bilirubin,Unconjugated 1.53 mg/dL (0.20-1.00); Blood Urea Nitrogen 6.3 mg/dL (9.0-27.0); Calcium 7.9 mg/dL (8.7-10.3); Carbon Dioxide 25.8 mmol/L (21.6-31.8); Chloride 99 mmol/L (96-109); Globulin 1.7 g/dL (1.6-3.3); Glucose 86 mg/dL (70-110); Magnesium 1.1 mg/dL (1.5-2.4); Potassium 3.7 mmol/L (3.5-5.5); Sodium 135 mmol/L (135-145); Total Bilirubin 2.4 mg/dL (0.3-1.2); Total Protein 5.1 g/dL (6.2-8.2)
[2024-06-07 12:37] VITALS: BP 168/104; TEMP 97.9
--- NOTE | 2024-06-07 13:26 | P.PN ---
Progress Note - Text Progress Note Date: 06/07/24 Interval history: Patient was seen today for psychiatric follow-up as requested by the primary t abundio. Patient claims that he is doing better today, denies any anxiety or depression. He was fairly focused on being discharged. He states that he came to the hospital for "detox" from the alcohol. States that his girlfriend was the 1 that exposed him to alcohol again. He is refusing rehab or AA meetings or other resources at this time. Not reporting any significant withdrawal symptoms at this time or history of DTs. States that his sleep has been on and off however complains that is due to the hospital. He is future oriented talked about his kids and his wellbeing and wants to live for them. Denies any suicidal homicidal ideations intent or plan, denies any auditory or visual hallucinations. MENTAL STATUS EXAM: General Appearance: Patient appears to be thin, older than stated age is alert, [directable, and attempts to cooperate] Behavior: Patient is in bed without any agitated behavior. [] Times to cooperate Speech: Patient's speech is [fluent and nonpressured.] Mood/Affect: Patient reports their mood is "good", affect is congruent Suicidality/Homicidality: Patient denies having any homicidal ideation intent or plan. [Denies any suicidal ideations intent or plan] Perceptions: Patient denies any auditory hallucinations. reports visual hallucinations Though content/process: [There is no evidence of any delusional thought content and thought process is linear and goal-directed.] Memory and concentration: AOX3, grossly intact for the purposes of this session Judgment and insight: superficial DIAGNOSIS: Alcohol use disorder, depression unspecified (MDD vs alcohol induced depression) PLAN: -Continue current treatment of alcohol withdrawals -patient is not interested in being restarted back on antidepressants at this time and was referred to outpatient provider for this if this changes in the future. he also declined anticravings meds for etoh. please taper librium further, would not discharge patient with more than 2-3 doses of librium to complete withdrawals. No ativan on d/c. -Counseled patient about importance of alcohol use treatment and going to rehab after discharge -Does not meet criteria for inpatient psychiatric hospitalization as he is cur rently not suicidal and is future oriented, the earlier suicidal ideations were likely due to intoxication as has been his past pattern -psychiatry will sign off, communicated with RN.
[2024-06-07] MEDS ORDERED: Magnesium Replacement Protocol 1 EACH MISC MISCELLANE PRN (14:29)
[2024-06-07] MEDS: MAGNESIUM OXIDE 400 MG TAB PO STA (14:44)
[2024-06-07] MEDS ORDERED: MAGNESIUM SULFATE-D5W PMX 1 GM in DEXTROSE/WATER 1 100ML.BAG IVPB SCH (15:00)
--- NOTE | 2024-06-11 09:10 | P.DS ---
Providers Date of admission: 06/05/24 19:48 Expected date of discharge: 06/07/24 Attending physician: Miquel Clark Consults: 06/05/24 19:45 Consult Physician Routine Consulting Provider: Jean-Paul Stanton Consult Reason/Comments: SI/ETOH Do you want consulting provider notified?: Yes Primary care physician: Stated None Hospital Course: Final diagnosis Alcohol use disorder at risk of alcohol withdrawal Depression with suicidal comments while he is intoxicated, cleared by psychiatry for outpatient follow-up Hypomagnesemia Alcoholic transaminitis Alcoholic liver disease and cirrhosis Mild anemia likely secondary to liver disease and continued alcohol abuse GI prophylaxis DVT prophylaxis Full code Discharge disposition Patient is being discharged in a stable condition with guarded prognosis to home. Patient will follow-up with Dr. Decker in the outpatient setting upon discharge. Patient was also provided additional resources to establish with a primary care provider. Patient is to continue with avoiding alcohol intake and strongly recommend inpatient alcohol rehab. Patient to follow-up with [facility] outpatient as scheduled. Total time taken is greater than 35 minutes. Hospital course This is a 53-year-old male who was recently admitted with alcohol intoxication with depression and reported suicidal ideations and comments in the ER. Patient maintained on CIWA protocol and also evaluated by psychiatry and does not meet inpatient criteria recommending outpatient follow-up. Patient's magnesium was noted to be low and replacement ordered although patient refused to stay. Patient was provided oral supplementation and prescription for repeat labs and instructed to follow-up. Strongly recommend inpatient alcohol rehab although patient reports will be going home at this time. Please refer to other consultation notes for further HPI. Currently no reports of chest pain, shortness of breath, or palpitations. Patient is afebrile. No reports of nausea or vomiting and patient is tolerating diet. Patient will be discharged home. Guarded prognosis and high risk for readmissions given patient's continued alcohol abuse Physical exam: Gen: This is a 53-year-old male who is awake, alert and oriented x 3, thin built, appears older than stated age HEENT: Head is atraumatic, normocephalic. Pupils equal, round. Sclerae is anicteric. NECK: Supple. No JVD. No lymphadenopathy. No thyromegaly. LUNGS: Clear to auscultation. No wheezes or rhonchi. No intercostal retractions. HEART: Regular rate and rhythm. No murmur. ABDOMEN: Soft. Thin. Bowel sounds are present. No masses. No tenderness. EXTREMITIES: No pedal edema. No calf tenderness. NEUROLOGICAL: Patient is awake, alert and oriented x3. Cranial nerves 2 through 12 are grossly intact. Please refer to medication reconciliation sheet for a list of medications. The impression and plan of care has been dictated by Lilian Vuong, Nurse Practitioner as directed. Dr. Eduardo MD I have performed a history and examination and MDM of this patient, discussed the same with the dictator, and agree with the dictator's assessment and plan as written ,documented as a scribe. Based on total visit time, I have performed more than 50% of the visit. Patient Condition at Discharge: Stable Plan - Discharge Summary Discharge Rx Participant: No New Discharge Prescriptions: New Nicotine 21Mg/24Hr Patch [Habitrol] 1 patch TRANSDERM DAILY patch chlordiazePOXIDE HCl [Librium] 10 mg PO TID #6 cap Folic Acid 1 mg PO DAILY #30 tablet Multivitamins, Thera [Multivitamin] 1 tab PO DAILY #30 tablet Thiamine [Vitamin B-1] 100 mg PO DAILY #30 tablet Discharge Medication List Folic Acid 1 mg PO DAILY #30 tablet 06/07/24 [Rx] Multivitamins, Thera [Multivitamin] 1 tab PO DAILY #30 tablet 06/07/24 [Rx] Nicotine 21Mg/24Hr Patch [Habitrol] 1 patch TRANSDERM DAILY patch 06/07/24 [Rx] Thiamine [Vitamin B-1] 100 mg PO DAILY #30 tablet 06/07/24 [Rx] chlordiazePOXIDE HCl [Librium] 10 mg PO TID #6 cap 06/07/24 [Rx] Follow up Appointment(s)/Referral(s): Rosalie Decker DO [REFERRING] - 1 Week Ambulatory/Diagnostic Orders: Magnesium [LAB.AMB] Time Frame: 3 Days, Location: None Selected Activity/Diet/Wound Care/Special Instructions: Activity limited until follow-up Follow-up with primary care provider on discharge Strongly recommend inpatient alcohol rehab Continue taking oral magnesium Follow-up on repeat labs in 2 to 3 days Discharge Disposition: HOME SELF-CARE
== END 2024-06-07 15:12 | disposition home or self-care (01) ==
LOC: EC 17:51 → 4SSUR 19:48
PROVIDERS: ADMIT Hospitalist; ATTEND Hospitalist
DX: F10.129 Alcohol abuse with intoxication, unspecified (principal); Y90.8 Blood alcohol level of 240 mg/100 ml or more; D64.9 Anemia, unspecified; E83.42 Hypomagnesemia; F17.210 Nicotine dependence, cigarettes, uncomplicated; F32.A Depression, unspecified; K70.30 Alcoholic cirrhosis of liver without ascites; R45.851 Suicidal ideations
CPT/HCPCS: 96376 ×4; 96361 ×2; 96372; 96375 ×2; 96374; 99291; 36415; 80053; 80048; 80076; 83735 ×2; 85025; 80320; 71046; G0378 ×3; S4990 ×3; J2060 ×2; J2405; J1650; J3490 ×2; J1885 ×3

== ENCOUNTER 2024-07-13 16:01 | Inpatient (IN) | payer OTHER ==
[2024-07-13] MEDS: ONDANSETRON 4 MG/2 ML VIAL IVP STA (16:35)
[2024-07-13] MEDS: SODIUM CHLORIDE 0.9% 1,000 ML IV STA ×2 (16:36→17:22)
[2024-07-13] MEDS: LORazepam 2 MG/ML INJ IV STA (16:36)
[2024-07-13 16:50] LABS: Eosinophils % (A) 1 %; HCT 51.8 % (39.0-53.0); HGB 17.1 gm/dL (13.0-17.5); Lymphocytes % (A) 30 %; MCH 36.7 pg (25.0-35.0); MCHC 33.1 g/dL (31.0-37.0); Macrocytosis Marked; Mean Platelet Volume 8.1; Monocytes % (A) 4 %; Neutrophils % (A) 62 %; Platelet Count 138 k/uL (150-450); RBC 4.67 m/uL (4.30-5.90); RDW 12.9 % (11.5-15.5); WBC 8.4 k/uL (3.8-10.6)
[2024-07-13 16:51] LABS: Basophils # (A) 0.1 k/uL (0-0.2); Basophils % (A) 2 %; Eosinophils # (A) 0.1 k/uL (0-0.7); Lymphocytes # (A) 2.5 k/uL (1.0-4.8); Monocytes # (A) 0.4 k/uL (0-1.0); Neutrophils # (A) 5.3 k/uL (1.3-7.7)
[2024-07-13 16:59] LABS: ALT 128 U/L (4-49); AST 507 U/L (17-59); African American GFR (CKD) >90 (>60 ml/min/1.73 sqM); Albumin 5.1 g/dL (3.5-5.0); Alkaline Phosphatase 112 U/L (38-126); Anion Gap 11 mmol/L; Blood Urea Nitrogen 8 mg/dL (9-20); Calcium 9.2 mg/dL (8.4-10.2); Carbon Dioxide 28 mmol/L (22-30); Chloride 97 mmol/L (98-107); Glucose 114 mg/dL (74-99); Lipase 106 U/L (23-300); Magnesium 1.8 mg/dL (1.6-2.3); Non-African American GFR(CKD) >90 (>60 ml/min/1.73 sqM); Potassium 4.3 mmol/L (3.5-5.1); Sodium 136 mmol/L (137-145); Total Bilirubin 1.7 mg/dL (0.2-1.3); Total Protein 7.9 g/dL (6.3-8.2)
[2024-07-13 17:02] LABS: MCV 110.8 fL (80.0-100.0)
[2024-07-13] MEDS ORDERED: NALOXONE 0.4 MG/ML 1 ML VIAL IV PRN (17:11)
--- NOTE | 2024-07-13 17:14 | ED ---
Alcohol HPI - General Chief Complaint: Alcohol Stated Complaint: ETOH/Wants help Time Seen by Provider: 07/13/24 16:06 Source: patient, EMS, RN notes reviewed Mode of arrival: EMS Limitations: no limitations - Related Data Previous Rx's Medication Instructions Recorded Folic Acid 1 mg PO DAILY #30 tablet 06/07/24 Multivitamins, Thera [Multivitamin] 1 tab PO DAILY #30 tablet 06/07/24 Nicotine 21Mg/24Hr Patch [Habitrol] 1 patch TRANSDERM DAILY patch 06/07/24 Thiamine [Vitamin B-1] 100 mg PO DAILY #30 tablet 06/07/24 chlordiazePOXIDE HCl [Librium] 10 mg PO TID #6 cap 06/07/24 Allergies Allergy/AdvReac Type Severity Reaction Status Date / Time No Known Allergies Allergy Verified 07/13/24 16:12 Review of Systems ROS Statement: Those systems with pertinent positive or pertinent negative responses have been documented in the HPI. ROS Other: All systems not noted in ROS Statement are negative. Past Medical History Past Medical History: Liver Disease Additional Past Medical History / Comment(s): alcoholic cirrhosis History of Any Multi-Drug Resistant Organisms: None Reported Past Surgical History: No Surgical Hx Reported Past Anesthesia/Blood Transfusion Reactions: No Reported Reaction Past Psychological History: No Psychological Hx Reported Smoking Status: Current every day smoker Past Alcohol Use History: Abuse, Daily, Heavy Past Drug Use History: Marijuana - Past Family History Father Family Medical History: Cancer General Exam Limitations: no limitations Course Vital Signs 07/13/24 16:09 Temperature 98.0 F Pulse Rate 120 H Respiratory 18 Rate Blood Pressure 133/96 O2 Sat by Pulse 94 L Oximetry Medical Decision Making - Medical Decision Making Was pt. sent in by a medical professional or institution (, PA, MORTGAGE LOAN ORIGINATOR, urgent care, hospital, or detention...) When possible be specific @ -No Did you speak to anyone other than the patient for history (EMS, parent, family, police, friend...)? What history was obtained from this source @ -No Did you review nursing and triage notes (agree or disagree)? Why? @ -I reviewed and agree with nursing and triage notes Were old charts reviewed (outside hosp., previous admission, EMS record, old EKG, old radiological studies, urgent care reports/EKG's, detention records)? Report findings @ -No old charts were reviewed Differential Diagnosis (chest pain, altered mental status, abdominal pain women, abdominal pain men, vaginal bleeding, weakness, fever, dyspnea, syncope, headache, dizziness, GI bleed, back pain, seizure, CVA, palpatations, mental health, musculoskeletal)? @ -Alcohol abuse alcohol withdrawal, delirium alcohol intoxication EKG interpreted by me (3pts min.). @ -None X-rays interpreted by me (1pt min.). @ -None done CT interpreted by me (1pt min.). @ -None done U/S interpreted by me (1pt. min.). @ -None done What testing was considered but not performed or refused? (CT, X-rays, U/S, labs)? Why? @ -None What meds were considered but not given or refused? Why? @ -None Did you discuss the management of the patient with other professionals (professionals i.e. , PA, MORTGAGE LOAN ORIGINATOR, lab, RT, psych nurse, social science manager, conduit mechanic, teacher, commissary officer, embedded case manager)? Give summary @ -EMH for admission Was smoking cessation discussed for >3mins.? @ -No Was critical care preformed (if so, how long)? @ -No Were there social determinants of health that impacted care today? How? (Ho melessness, low income, unemployed, alcoholism, drug addiction, transportation, low edu. Level, literacy, decrease access to med. care, residential, rehab)? @ -No Was there de-escalation of care discussed even if they declined (Discuss DNR or withdrawal of care, Hospice)? DNR status @ -No What co-morbidities impacted this encounter? (DM, HTN, Smoking, COPD, CAD, Cancer, CVA, ARF, Chemo, Hep., AIDS, mental health diagnosis, sleep apnea, morbid obesity)? @ -[Alcohol abuse Was patient admitted / discharged? Hospital course, mention meds given and route, prescriptions, significant lab abnormalities, going to OR and other pertinent info. @ -Admitted to observation for alcohol withdrawal, patient on CIWA, Ativan withdrawal protocol Undiagnosed new problem with uncertain prognosis? @ -No Drug Therapy requiring intensive monitoring for toxicity (Heparin, Nitro, Insulin, Cardizem)? @ -No Were any procedures done? @ -No Diagnosis/symptom? @ -Alcohol abuse alcohol withdrawal Acute, or Chronic, or Acute on Chronic? @ -Acute on chronic Uncomplicated (without systemic symptoms) or Complicated (systemic symptoms)? @ -Complicated Side effects of treatment? @ -No Exacerbation, Progression, or Severe Exacerbation? @ -No Poses a threat to life or bodily function? How? (Chest pain, USA, NV, pneumonia, PE, COPD, DKA, ARF, appy, cholecystitis, CVA, Diverticulitis, Homicidal, Suicidal, threat to staff... and all critical care pts) @ -No - Lab Data Result diagrams: 07/13/24 16:43 07/13/24 16:43 Lab Results 07/13/24 07/13/24 Range/Units 16:43 16:43 WBC 8.4 (3.8-10.6) k/uL RBC 4.67 (4.30-5.90) m/uL Hgb 17.1 (13.0-17.5) gm/dL Hct 51.8 (39.0-53.0) % MCV 110.8 H D (80.0-100.0) fL MCH 36.7 H (25.0-35.0) pg MCHC 33.1 (31.0-37.0) g/dL RDW 12.9 (11.5-15.5) % Plt Count 138 L (150-450) k/uL MPV 8.1 Macrocytosis Marked A Sodium 136 L (137-145) mmol/L Potassium 4.3 (3.5-5.1) mmol/L Chloride 97 L (98-107) mmol/L Carbon Dioxide 28 (22-30) mmol/L Anion Gap 11 mmol/L BUN 8 L (9-20) mg/dL Creatinine 0.67 (0.66-1.25) mg/dL Est GFR (CKD-EPI)AfAm >90 (>60 ml/min/1.73 sqM) Est GFR (CKD-EPI)NonAf >90 (>60 ml/min/1.73 sqM) Glucose 114 H (74-99) mg/dL Calcium 9.2 (8.4-10.2) mg/dL Magnesium 1.8 (1.6-2.3) mg/dL Total Bilirubin 1.7 H (0.2-1.3) mg/dL AST 507 H (17-59) U/L ALT 128 H (4-49) U/L Alkaline Phosphatase 112 (38-126) U/L Total Protein 7.9 (6.3-8.2) g/dL Albumin 5.1 H (3.5-5.0) g/dL Lipase 106 (23-300) U/L Disposition Clinical Impression: Alcoholic intoxication, Alcohol withdrawal, Alcohol abuse Disposition: ADMITTED IP TO THIS HOSP Condition: Fair Referrals: None,Stated [Primary Care Provider] - 1-2 days Time of Disposition: 17:14
[2024-07-13] MEDS: SODIUM CHLORIDE 0.9% 1,000 ML IV SCH (18:48)
[2024-07-13] MEDS: LORazepam 2 MG/ML INJ IV PRN ×2 (21:48→22:53)
[2024-07-13] MEDS: ONDANSETRON 4 MG/2 ML VIAL IVP PRN (21:54)
[2024-07-13] MEDS: NICOTINE 21MG/24HR PATCH TRANSDERM SCH (21:54)
[2024-07-14] MEDS: ACETAMINOPHEN TAB 325 MG TAB PO PRN (02:39)
[2024-07-14] MEDS: THIAMINE 100 MG TAB PO SCH (08:28)
[2024-07-14] MEDS: Acetaminophen-Codeine 300-30mg TAB PO PRN (10:25)
--- NOTE | 2024-07-14 10:41 | P.HPIM ---
History of Present Illness This is a pleasant 53 years old with past medical history of liver cirrhosis most likely related to alcohol use disorder and nicotine dependence. Presents because he needed help to quit drinking alcohol. Patient has multiple admissions to this facility For similar reasons, he had 1 admission last month and 1 last year. Currently he is fully awake and oriented to time place and person, he follows command he has insight he is calm and he is appropriate. Patient denies chest pain or dyspnea, he feels little bit this biopsy a little bit of headache but no overt abdominal pain or nausea vomiting. No diarrhea He denies dizziness. No new unilateral weakness or tingling. Patient complains from weakness in both lower extremity for several weeks and months that sometimes he needs to hold to walk. Most likely due to alcohol effect. He smokes about more than 1 pack/day and he was counseled to quit and he agrees to the nicotine patch. He drinks about fifth of the day and uses little marijuana He had 1 bowel movement He denies depression, suicidal ideation or homicidal ideation He has chronic back pain CBC is unremarkable except for low platelet count at 138, BMP is unremarkable Liver enzymes moderately elevated with AST 407 and ALT 128. Bilirubin is 1.7. Alcohol level was high 103 on admission Review of Systems Review of systems CONSTITUTIONAL: No fever, no malaise, no fatigue. HEENT: No recent visual problems or hearing problems. Denied any sore throat. CARDIOVASCULAR: No orthopnea, PND, no palpitations, no syncope. PULMONARY: No shortness of breath, no cough, no hemoptysis. GASTROINTESTINAL: No diarrhea, no nausea, no vomiting, no abdominal pain. Normoactive bowel sounds. NEUROLOGICAL: No headaches, no weakness, no numbness. HEMATOLOGICAL: Denies any bleeding or petechiae. GENITOURINARY: Denies any burning micturition, frequency, or urgency. MUSCULOSKELETAL/RHEUMATOLOGICAL: Denies any joint pain, swelling, or any muscle pain. ENDOCRINE: Denies any polyuria or polydipsia. Past Medical History Past Medical History: Liver Disease Additional Past Medical History / Comment(s): alcoholic cirrhosis History of Any Multi-Drug Resistant Organisms: None Reported Past Surgical History: No Surgical Hx Reported Past Anesthesia/Blood Transfusion Reactions: No Reported Reaction Past Psychological History: No Psychological Hx Reported Smoking Status: Current every day smoker Past Alcohol Use History: Abuse, Daily, Heavy Past Drug Use History: Marijuana Additional Drug Use History / Comment(s): patient states he drinks 1/5th of vodka per day and smokes two packs of cigarettes and occassional marijuana use - Past Family History Father Family Medical History: Cancer Medications and Allergies Home Medications Medication Instructions Recorded Confirmed Type No Known Home Medications 07/13/24 07/13/24 History Allergies Allergy/AdvReac Type Severity Reaction Status Date / Time No Known Allergies Allergy Verified 07/13/24 17:35 Physical Exam Vitals: Vital Signs Temp Pulse Pulse Resp BP BP Pulse Ox 07/14/24 08:00 98.2 F 98 18 148/88 97 07/14/24 02:00 98.5 F 97 17 131/85 97 07/13/24 21:07 98.3 F 108 H 18 156/88 95 07/13/24 17:48 101 H 16 150/105 98 07/13/24 16:09 98.0 F 120 H 18 133/96 94 L Intake and Output 07/13/24 07/14/24 07/14/24 22:59 06:59 14:59 Other: # Voids 2 Weight 54.431 kg 54.431 kg GENERAL: The patient is alert and oriented x3, not in any acute distress. Well developed, well nourished. HEENT: Pupils are round and equally reacting to light. EOMI. No scleral icterus. No conjunctival pallor. Normocephalic, atraumatic. No pharyngeal erythema. No thyromegaly. CARDIOVASCULAR: S1 and S2 present. No murmurs, rubs, or gallops. PULMONARY: Chest is clear to auscultation, no wheezing , no crackles. ABDOMEN: Soft, nontender, nondistended, normoactive bowel sounds. No palpable organomegaly. MUSCULOSKELETAL: No joint swelling or deformity. EXTREMITIES: No cyanosis, clubbing, or pedal edema. -NEUROLOGICAL: Gross neurological examination did not reveal any focal deficits. Mild symmetrical weakness of both lower extremities SKIN: No rashes. no petechiae. Results CBC & Chem 7: 07/13/24 16:43 07/13/24 16:43 Labs: Abnormal Lab Results - Last 24 Hours (Table) 07/13/24 12 Range/Units 16:43 16:43 MCV 110.8 H D (80.0-100.0) fL MCH 36.7 H (25.0-35.0) pg Plt Count 138 L (150-450) k/uL Macrocytosis Marked A Sodium 136 L (137-145) mmol/L Chloride 97 L (98-107) mmol/L BUN 8 L (9-20) mg/dL Glucose 114 H (74-99) mg/dL Total Bilirubin 1.7 H (0.2-1.3) mg/dL AST 507 H (17-59) U/L ALT 128 H (4-49) U/L Albumin 5.1 H (3.5-5.0) g/dL Thrombosis Risk Factor Assmnt - Choose All That Apply Any of the Below Risk Factors Present?: Yes Each Factor Represents 1 point: Age 41-60 years Other Risk Factors: No Other congenital or acquired thrombophilia - If yes, enter type in comment: No Thrombosis Risk Factor Assessment Total Risk Factor Score: 1 Thrombosis Risk Factor Assessment Level: Low Risk Assessment and Plan Assessment: Alcohol use disorder at risk of alcohol withdrawal Alcoholic transaminitis Alcoholic liver cirrhosis Alcoholic induced thrombocytopenia, mild Nicotine dependence Possible peripheral neuropathy secondary to alcohol use disorder Chronic back pain Plan: Continue with CIWA and thiamine Check vitamin B12 and folate level Symptomatic treatment IV hydration There is no GI coverage in this facility Labs and medication were reviewed.. Continue same treatment. Continue with symptomatic treatment. Resume home medication. Monitor labs and vitals. DVT and GI prophylaxis. Further recommendations as per clinical course of the patient DVT prophylaxis: Subcutaneous heparin GI Prophylaxis: Pepcid PT/OT: Pending Prognosis is guarded
[2024-07-14] MEDS: LORazepam 1 MG TAB PO PRN (12:25)
[2024-07-14] MEDS: guaiFENesin-DM 100-10MG/5ML 10 ML CUP PO SCH (13:33)
[2024-07-15 10:14] LABS: Basophils % (A) 1.5 %; Eosinophils # (A) 0.18 X 10*3/uL (0.04-0.35); Eosinophils % (A) 2.7 %; HCT 37.7 % (39.6-50.0); HGB 12.8 g/dL (13.0-17.0); Immature Platelet Fraction 9.9 % (1.1-6.1); Lymphocytes # (A) 2.28 X 10*3/uL (0.90-5.00); Lymphocytes % (A) 34.3 %; MCH 36.5 pg (27.0-32.0); MCV 107.4 FL (80.0-97.0); Macrocytosis (M) 2+ (None Seen); Mean Platelet Volume 11.3 FL (9.5-12.2); Monocytes # (A) 0.29 X 10*3/uL (0.20-1.00); Monocytes % (A) 4.4 %; NRBC Per 100 WBC 0 X 10*3/uL (0.00-0.01); Neutrophils # (A) 3.78 X 10*3/uL (1.80-7.70); Neutrophils % (A) 56.8 %; Platelet Count 57 X 10*3/uL (140-440); RBC 3.51 X 10*6/uL (4.40-5.60); RDW 12.8 % (11.5-14.5); WBC 6.65 X 10*3/uL (4.50-10.00)
[2024-07-15 10:53] LABS: ALT 63 U/L (10-49); AST 136 U/L (14-35); Albumin 3.6 g/dL (3.8-4.9); Albumin/Globulin Ratio 2.12 Ratio (1.60-3.17); Alkaline Phosphatase 94 U/L (41-126); Bilirubin, Conjugated 0.79 mg/dL (0.20-0.40); Bilirubin,Unconjugated 0.71 mg/dL (0.20-1.00); Blood Urea Nitrogen 6.6 mg/dL (9.0-27.0); Calcium 8.5 mg/dL (8.7-10.3); Carbon Dioxide 24.1 mmol/L (21.6-31.8); Chloride 100 mmol/L (96-109); Globulin 1.7 g/dL (1.6-3.3); Glucose 112 mg/dL (70-110); Potassium 3.8 mmol/L (3.5-5.5); Sodium 135 mmol/L (135-145); Total Bilirubin 1.5 mg/dL (0.3-1.2); Total Protein 5.3 g/dL (6.2-8.2)
[2024-07-15] MEDS: LORazepam 2 MG/ML INJ IV PRN (12:00)
--- NOTE | 2024-07-15 12:35 | P.PN ---
Subjective This is a pleasant 53 years old with past medical history of liver cirrhosis most likely related to alcohol use disorder and nicotine dependence. Presents because he needed help to quit drinking alcohol. Patient has multiple admissions to this facility For similar reasons, he had 1 admission last month and 1 last year. Currently he is fully awake and oriented to time place and person, he follows command he has insight he is calm and he is appropriate. Patient denies chest pain or dyspnea, he feels little bit this biopsy a little bit of headache but no overt abdominal pain or nausea vomiting. No diarrhea He denies dizziness. No new unilateral weakness or tingling. Patient complains from weakness in both lower extremity for several weeks and months that sometimes he needs to hold to walk. Most likely due to alcohol effect. He smokes about more than 1 pack/day and he was counseled to quit and he agrees to the nicotine patch. He drinks about fifth of the day and uses little marijuana He had 1 bowel movement He denies depression, suicidal ideation or homicidal ideation He has chronic back pain CBC is unremarkable except for low platelet count at 138, BMP is unremarkable Liver enzymes moderately elevated with AST 407 and ALT 128. Bilirubin is 1.7. Alcohol level was high 103 on admission 07/15 Patient awake alert He is undergoing withdrawal symptoms and he is getting Ativan per [facility] protocol. Other than that he is awake alert. Denies chest pain or dyspnea. He denies weakness or tingling his extremities without upper or lower. He still feels generally weak and lower extremity symmetrically weak which is a chronic. Most likely patient has peripheral neuropathy which is exacerbated by his nutritional deficiency and alcohol use disorder. Patient was able to get up and walk by himself. His gait was little bit wobbly which states that it is baseline but slightly worse most likely secondary to the Ativan he is taking and there withdrawal symptoms No lateralization. No tingling. No saddle numbness or anesthesia. No headache or dizziness. No blurred vision, no slurred speech His liver enzymes elevation looks improvement today. Bilirubin is trending down 1.7 down to 1.5 B12 is 515, TSH is normal 1.0 and folate is less than 2 Folate deficiency might be contributing also to his illness therefore start rep lacement therapy. Will give him one-time dose of vitamin B12 injection Discussed with the staff Review of systems CONSTITUTIONAL: No fever, no malaise, no fatigue. HEENT: No recent visual problems or hearing problems. Denied any sore throat. CARDIOVASCULAR: No orthopnea, PND, no palpitations, no syncope. PULMONARY: No shortness of breath, no cough, no hemoptysis. GASTROINTESTINAL: No diarrhea, no nausea, no vomiting, no abdominal pain. Normoactive bowel sounds. NEUROLOGICAL: No headaches, no weakness, no numbness. HEMATOLOGICAL: Denies any bleeding or petechiae Active Medications Generic Name Dose Route Start Last Admin Trade Name Freq PRN Reason Stop Dose Admin Acetaminophen 650 mg 07/13/24 19:04 07/14/24 02:39 Acetaminophen Tab 325 Mg Tab PO 650 mg Q6HR PRN Administration Fever and/ or Pain Acetaminophen/Codeine Phosphate 1 each 07/14/24 08:54 07/14/24 18:16 Acetaminophen-Codeine 300-30mg Tab PO 1 each Q6HR PRN Administration Pain Folic Acid 1 mg 07/15/24 12:45 Folic Acid 1 Mg Tab PO DAILY PRAVEEN Guaifenesin/Dextromethorphan 10 ml 07/14/24 13:15 07/15/24 12:00 Guaifenesin-Dm 100-10mg/5ml 10 Ml Cup PO 10 ml Q6HR PRAVEEN Administration Sodium Chloride 1,000 mls @ 75 mls/hr 07/13/24 17:15 07/15/24 08:28 Saline 0.9% IV 75 mls/hr .[id number] PRAVEEN Administration Lorazepam 0.5 mg 07/13/24 17:09 Lorazepam 0.5 Mg Tab PO Q4HR PRN Ciwa 4 To 5 Lorazepam 1 mg 07/13/24 17:09 07/15/24 10:29 Lorazepam 1 Mg Tab PO 1 mg Q4HR PRN Administration Ciwa 6 To 7 Lorazepam 1 mg 07/13/24 17:09 07/15/24 08:29 Lorazepam 2 Mg/Ml Inj IV 1 mg Q1HR PRN Administration CIWA 10 to 15 Lorazepam 1 mg 07/13/24 17:09 07/15/24 04:27 Lorazepam 2 Mg/Ml Inj IV 1 mg Q2HR PRN Administration CIWA 8 or 9 Lorazepam 2 mg 07/13/24 17:09 07/15/24 12:00 Lorazepam 2 Mg/Ml Inj IV 07/15/24 17:11 2 mg Q10M PRN Administration CIWA 16 or higher Naloxone HCl 0.2 mg 07/13/24 17:11 Naloxone 0.4 Mg/Ml 1 Ml Vial IV Q2M PRN Opioid Reversal Nicotine 1 patch 07/13/24 21:45 07/15/24 08:27 Nicotine 21mg/24hr Patch TRANSDERM 1 patch DAILY PRAVEEN Administration Ondansetron HCl 4 mg 07/13/24 17:11 07/15/24 04:27 Ondansetron 4 Mg/2 Ml Vial IVP 4 mg Q8HR PRN Administration Nausea And Vomiting Thiamine HCl 100 mg 07/14/24 09:00 07/15/24 08:27 Thiamine 100 Mg Tab PO 100 mg DAILY PRAVEEN Administration Objective - Vital Signs Vital signs: Vital Signs Temp 98.3 F 07/15/24 06:51 Pulse 90 07/15/24 06:51 Resp 17 07/15/24 06:51 BP 141/91 07/15/24 06:51 Pulse Ox 99 07/15/24 06:51 FiO2 Intake & Output 07/14/24 07/15/24 07/15/24 18:59 06:59 18:59 Other: Voiding Method Toilet Toilet Urinal Urinal Diaper Diaper # Voids 3 1 3 - Exam GENERAL: The patient is alert and oriented x3, not in any acute distress. Well developed, well nourished. HEENT: Pupils are round and equally reacting to light. EOMI. No scleral icterus. No conjunctival pallor. Normocephalic, atraumatic. No pharyngeal erythema. No thyromegaly. CARDIOVASCULAR: S1 and S2 present. No murmurs, rubs, or gallops. PULMONARY: Chest is clear to auscultation, no wheezing , no crackles. ABDOMEN: Soft, nontender, nondistended, normoactive bowel sounds. No palpable organomegaly. MUSCULOSKELETAL: No joint swelling or deformity. EXTREMITIES: No cyanosis, clubbing, or pedal edema. NEUROLOGICAL: Gross neurological examination did not reveal any focal deficits. SKIN: No rashes. no petechiae. Get up and go test: Patient could walk by himself however this has unsteady gait - Labs CBC & Chem 7: 07/15/24 03:47 07/15/24 03:47 Labs: Abnormal Lab Results - Last 24 Hours (Table) 07/15/24 07/15/24 07/15/24 Range/Units 03:47 03:47 03:47 RBC 3.51 L (4.40-5.60) X 10*6/uL Hgb 12.8 L (13.0-17.0) g/dL Hct 37.7 L (39.6-50.0) % MCV 107.4 H (80.0-97.0) FL MCH 36.5 H (27.0-32.0) pg Plt Count 57 L (140-440) X 10*3/uL Immature Plt Fraction 9.9 H (1.1-6.1) % Macrocytosis (manual) 2+ A (None Seen) BUN 6.6 L (9.0-27.0) mg/dL BUN/Creatinine Ratio 11.00 L (12.00-20.00) Ratio Glucose 112 H (70-110) mg/dL Calcium 8.5 L (8.7-10.3) mg/dL Total Bilirubin 1.5 H (0.3-1.2) mg/dL Conjugated Bilirubin 0.79 H (0.20-0.40) mg/dL AST 136 H (14-35) U/L ALT 63 H (10-49) U/L Total Protein 5.3 L (6.2-8.2) g/dL Albumin 3.6 L (3.8-4.9) g/dL Folate <2.00 L (4.40-31.00) ng/mL Assessment and Plan Assessment: Alcohol use disorder at risk of alcohol withdrawal Alcoholic transaminitis Alcoholic liver cirrhosis Folate deficiency Alcoholic induced thrombocytopenia, mild Nicotine dependence Possible peripheral neuropathy secondary to alcohol use disorder Chronic back pain 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 Continue same treatment. Continue with symptomatic treatment. Resume home medication. Monitor labs and vitals. DVT and GI prophylaxis. Further recommendations as per clinical course of the patient DVT prophylaxis: Subcutaneous heparin GI Prophylaxis: Pepcid PT/OT: Pending Prognosis is guarded
[2024-07-15] MEDS: FOLIC ACID 1 MG TAB PO SCH (13:15)
[2024-07-16] MEDS ORDERED: ONDANSETRON 4 MG/2 ML VIAL IVP PRN (01:59)
[2024-07-16] MEDS: METOCLOPRAMIDE 5 MG/ML 2 ML VIAL IVP STA (02:05)
[2024-07-16] MEDS: chlordiazePOXIDE 25 MG CAP PO SCH ×2 (08:33→21:14)
[2024-07-16 08:34] LABS: Magnesium 1.5 mg/dL (1.5-2.4)
[2024-07-16 09:26] LABS: Basophils % (A) 1.4 %; Eosinophils # (A) 0.38 X 10*3/uL (0.04-0.35); Eosinophils % (A) 5.5 %; HGB 13.6 g/dL (13.0-17.0); Immature Platelet Fraction 16.7 % (1.1-6.1); Lymphocytes # (A) 2.58 X 10*3/uL (0.90-5.00); Lymphocytes % (A) 37.1 %; MCH 36.2 pg (27.0-32.0); MCV 106.4 FL (80.0-97.0); Mean Platelet Volume 12.1 FL (9.5-12.2); Monocytes # (A) 0.44 X 10*3/uL (0.20-1.00); Monocytes % (A) 6.3 %; NRBC Per 100 WBC 0 X 10*3/uL (0.00-0.01); Neutrophils # (A) 3.43 X 10*3/uL (1.80-7.70); Neutrophils % (A) 49.4 %; Platelet Count 56 X 10*3/uL (140-440); RBC 3.76 X 10*6/uL (4.40-5.60); RDW 12.6 % (11.5-14.5); WBC 6.95 X 10*3/uL (4.50-10.00)
[2024-07-16 09:38] LABS: BUN/Creat Ratio 14.71 Ratio (12.00-20.00); Blood Urea Nitrogen 10.3 mg/dL (9.0-27.0); Carbon Dioxide 22.8 mmol/L (21.6-31.8); Chloride 99 mmol/L (96-109); Glucose 98 mg/dL (70-110); Potassium 4.2 mmol/L (3.5-5.5); Sodium 133 mmol/L (135-145)
[2024-07-16 09:39] LABS: ALT 74 U/L (10-49); AST 139 U/L (14-35); Albumin/Globulin Ratio 1.74 Ratio (1.60-3.17); Alkaline Phosphatase 104 U/L (41-126); Bilirubin, Conjugated 0.68 mg/dL (0.20-0.40); Bilirubin,Unconjugated 0.62 mg/dL (0.20-1.00); Calcium 9.7 mg/dL (8.7-10.3); Globulin 2.3 g/dL (1.6-3.3); Total Bilirubin 1.3 mg/dL (0.3-1.2); Total Protein 6.3 g/dL (6.2-8.2)
--- NOTE | 2024-07-16 11:10 | P.PN ---
Subjective This is a pleasant 53 years old with past medical history of liver cirrhosis most likely related to alcohol use disorder and nicotine dependence. Presents because he needed help to quit drinking alcohol. Patient has multiple admissions to this facility For similar reasons, he had 1 admission last month and 1 last year. Currently he is fully awake and oriented to time place and person, he follows command he has insight he is calm and he is appropriate. Patient denies chest pain or dyspnea, he feels little bit this biopsy a little bit of headache but no overt abdominal pain or nausea vomiting. No diarrhea He denies dizziness. No new unilateral weakness or tingling. Patient complains from weakness in both lower extremity for several weeks and months that sometimes he needs to hold to walk. Most likely due to alcohol effect. He smokes about more than 1 pack/day and he was counseled to quit and he agrees to the nicotine patch. He drinks about fifth of the day and uses little marijuana He had 1 bowel movement He denies depression, suicidal ideation or homicidal ideation He has chronic back pain CBC is unremarkable except for low platelet count at 138, BMP is unremarkable Liver enzymes moderately elevated with AST 407 and ALT 128. Bilirubin is 1.7. Alcohol level was high 103 on admission 07/15 Patient awake alert He is undergoing withdrawal symptoms and he is getting Ativan per CIWA protocol. Other than that he is awake alert. Denies chest pain or dyspnea. He denies weakness or tingling his extremities without upper or lower. He still feels generally weak and lower extremity symmetrically weak which is a chronic. Most likely patient has peripheral neuropathy which is exacerbated by his nutritional deficiency and alcohol use disorder. Patient was able to get up and walk by himself. His gait was little bit wobbly which states that it is baseline but slightly worse most likely secondary to the Ativan he is taking and there withdrawal symptoms No lateralization. No tingling. No saddle numbness or anesthesia. No headache or dizziness. No blurred vision, no slurred speech His liver enzymes elevation looks improvement today. Bilirubin is trending down 1.7 down to 1.5 B12 is 515, TSH is normal 1.0 and folate is less than 2 Folate deficiency might be contributing also to his illness therefore start rep lacement therapy. Will give him one-time dose of vitamin B12 injection Discussed with the staff 07/16 Patient still going through withdrawal symptoms, his CIWA score today is 5-11 We added Librium which helped him with relaxing and sleeping. He is continued on CIWA protocol He was started on folate for low level Low magnesium been replaced Liver enzymes trending down Patient counseled to abstinence from alcohol and he agrees Patient denies depression or suicidal/homicidal ideation. No hallucination or delusions. He is lower extremity weakness is much improved today and he can move it more freely Review of systems CONSTITUTIONAL: No fever, no malaise, no fatigue. HEENT: No recent visual problems or hearing problems. Denied any sore throat. CARDIOVASCULAR: No orthopnea, PND, no palpitations, no syncope. PULMONARY: No shortness of breath, no cough, no hemoptysis. GASTROINTESTINAL: No diarrhea, no nausea, no vomiting, no abdominal pain. Normoactive bowel sounds. NEUROLOGICAL: No headaches, no weakness, no numbness. HEMATOLOGICAL: Denies any bleeding or petechiae Active Medications Generic Name Dose Route Start Last Admin Trade Name Freq PRN Reason Stop Dose Admin Acetaminophen 650 mg 07/13/24 19:04 07/14/24 02:39 Acetaminophen Tab 325 Mg Tab PO 650 mg Q6HR PRN Administration Fever and/ or Pain Acetaminophen/Codeine Phosphate 1 each 07/14/24 08:54 07/14/24 18:16 Acetaminophen-Codeine 300-30mg Tab PO 1 each Q6HR PRN Administration Pain Chlordiazepoxide HCl 25 mg 07/16/24 09:00 07/16/24 08:33 Chlordiazepoxide 25 Mg Cap PO Not Given TID PRAVEEN Folic Acid 1 mg 07/15/24 12:45 07/16/24 08:33 Folic Acid 1 Mg Tab PO Not Given DAILY PRAVEEN Guaifenesin/Dextromethorphan 10 ml 07/14/24 13:15 07/16/24 05:54 Guaifenesin-Dm 100-10mg/5ml 10 Ml Cup PO 10 ml Q6HR PRAVEEN Administration Sodium Chloride 1,000 mls @ 75 mls/hr 07/13/24 17:15 07/15/24 22:00 Saline 0.9% IV 75 mls/hr .[id number] PRAVEEN Administration Magnesium Sulfate/Dextrose 1 100 mls @ 100 mls/hr 07/16/24 11:15 gm/ IV Solution IVPB 07/16/24 13:14 Q1H PRAVEEN Lorazepam 0.5 mg 07/13/24 17:09 Lorazepam 0.5 Mg Tab PO Q4HR PRN Ciwa 4 To 5 Lorazepam 1 mg 07/13/24 17:09 07/15/24 21:59 Lorazepam 1 Mg Tab PO 1 mg Q4HR PRN Administration Ciwa 6 To 7 Lorazepam 1 mg 07/13/24 17:09 07/16/24 01:51 Lorazepam 2 Mg/Ml Inj IV 1 mg Q1HR PRN Administration CIWA 10 to 15 Lorazepam 1 mg 07/13/24 17:09 07/16/24 05:57 Lorazepam 2 Mg/Ml Inj IV 1 mg Q2HR PRN Administration CIWA 8 or 9 Magnesium Oxide 400 mg 07/16/24 16:00 Magnesium Oxide 400 Mg Tab PO 07/21/24 15:59 TID PRAVEEN Naloxone HCl 0.2 mg 07/13/24 17:11 Naloxone 0.4 Mg/Ml 1 Ml Vial IV Q2M PRN Opioid Reversal Nicotine 1 patch 07/13/24 21:45 07/16/24 08:31 Nicotine 21mg/24hr Patch TRANSDERM 1 patch DAILY [facility] Administration Ondansetron HCl 4 mg 07/16/24 01:59 Ondansetron 4 Mg/2 Ml Vial IVP Q6HR PRN Nausea And Vomiting Thiamine HCl 100 mg 07/14/24 09:00 07/16/24 08:33 Thiamine 100 Mg Tab PO Not Given DAILY PRAVEEN Trazodone HCl 50 mg 07/16/24 21:00 Trazodone Hcl 50 Mg Tab PO [facility] Objective - Vital Signs Vital signs: Vital Signs Temp 98.4 F 07/16/24 07:21 Pulse 88 07/16/24 07:21 Resp 17 07/16/24 07:21 BP 135/92 07/16/24 07:21 Pulse Ox 97 07/16/24 07:21 FiO2 Intake & Output 07/15/24 07/16/24 07/16/24 18:59 06:59 18:59 Intake Total 1886 Balance 1886 Intake: Oral 1886 Other: Voiding Method Urinal Toilet Diaper Urinal Diaper # Voids 2 7 # Bowel Movements 1 # Emeses 1 - Exam GENERAL: The patient is alert and oriented x3, not in any acute distress. Well developed, well nourished. HEENT: Pupils are round and equally reacting to light. EOMI. No scleral icterus. No conjunctival pallor. Normocephalic, atraumatic. No pharyngeal erythema. No thyromegaly. CARDIOVASCULAR: S1 and S2 present. No murmurs, rubs, or gallops. PULMONARY: Chest is clear to auscultation, no wheezing , no crackles. ABDOMEN: Soft, nontender, nondistended, normoactive bowel sounds. No palpable organomegaly. MUSCULOSKELETAL: No joint swelling or deformity. EXTREMITIES: No cyanosis, clubbing, or pedal edema. NEUROLOGICAL: Gross neurological examination did not reveal any focal deficits. SKIN: No rashes. no petechiae. Get up and go test: Patient could walk by himself however this has unsteady gait - Labs CBC & Chem 7: 07/16/24 05:42 07/16/24 05:42 Labs: Abnormal Lab Results - Last 24 Hours (Table) 07/15/24 07/16/24 07/16/24 Range/Units 03:47 05:42 05:42 RBC 3.76 L (4.40-5.60) X 10*6/uL MCV 106.4 H (80.0-97.0) FL MCH 36.2 H (27.0-32.0) pg Plt Count 56 L (140-440) X 10*3/uL Eosinophils # 0.38 H (0.04-0.35) X 10*3/uL Immature Plt Fraction 16.7 H (1.1-6.1) % Sodium 133 L (135-145) mmol/L Total Bilirubin 1.3 H (0.3-1.2) mg/dL Conjugated Bilirubin 0.68 H (0.20-0.40) mg/dL AST 139 H (14-35) U/L ALT 74 H (10-49) U/L Folate <2.00 L (4.40-31.00) ng/mL Assessment and Plan Assessment: Alcohol use disorder at risk of alcohol withdrawal Alcoholic transaminitis Alcoholic liver cirrhosis Folate deficiency Alcoholic induced thrombocytopenia, mild Nicotine dependence Possible peripheral neuropathy secondary to alcohol use disorder Chronic back pain 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 Continue same treatment. Continue with symptomatic treatment. Resume home medication. Monitor labs and vitals. DVT and GI prophylaxis. Further recommendations as per clinical course of the patient DVT prophylaxis: Subcutaneous heparin GI Prophylaxis: Pepcid PT/OT: Pending Prognosis is guarded
[2024-07-16] MEDS: MAGNESIUM SULFATE-D5W PMX 1 GM in DEXTROSE/WATER 1 100ML.BAG IVPB SCH (11:30)
[2024-07-16 13:40] VITALS: BMI 17.7
[2024-07-16] MEDS: MAGNESIUM OXIDE 400 MG TAB PO SCH (16:11)
[2024-07-16] MEDS: LORazepam 0.5 MG TAB PO PRN (21:14)
[2024-07-16] MEDS: traZODone HCL 50 MG TAB PO SCH (21:15)
--- NOTE | 2024-07-17 16:51 | P.PN ---
Subjective Progress Note Date: 07/17/24 Interval History: This is a pleasant 53 years old with past medical history of liver cirrhosis most likely related to alcohol use disorder and nicotine dependence. Presents because he needed help to quit drinking alcohol. Patient has multiple admissions to this facility For similar reasons, he had 1 admission last month and 1 last year. Currently he is fully awake and oriented to time place and person, he follows command he has insight he is calm and he is appropriate. Patient denies chest pain or dyspnea, he feels little bit this biopsy a little bit of headache but no overt abdominal pain or nausea vomiting. No diarrhea He denies dizziness. No new unilateral weakness or tingling. Patient complains from weakness in both lower extremity for several weeks and months that sometimes he needs to hold to walk. Most likely due to alcohol effect. He smokes about more than 1 pack/day and he was counseled to quit and he agrees to the nicotine patch. He drinks about fifth of the day and uses little marijuana He had 1 bowel movement He denies depression, suicidal ideation or homicidal ideation He has chronic back pain CBC is unremarkable except for low platelet count at 138, BMP is unremarkable Liver enzymes moderately elevated with AST 407 and ALT 128. Bilirubin is 1.7. Alcohol level was high 103 on admission 07/15 Patient awake alert He is undergoing withdrawal symptoms and he is getting Ativan per CIWA protocol. Other than that he is awake alert. Denies chest pain or dyspnea. He denies weakness or tingling his extremities without upper or lower. He still feels generally weak and lower extremity symmetrically weak which is a chronic. Most likely patient has peripheral neuropathy which is exacerbated by his nutritional deficiency and alcohol use disorder. Patient was able to get up and walk by himself. His gait was little bit wobbly which states that it is baseline but slightly worse most likely secondary to the Ativan he is taking and there withdrawal symptoms No lateralization. No tingling. No saddle numbness or anesthesia. No headache or dizziness. No blurred vision, no slurred speech His liver enzymes elevation looks improvement today. Bilirubin is trending down 1.7 down to 1.5 B12 is 515, TSH is normal 1.0 and folate is less than 2 Folate deficiency might be contributing also to his illness therefore start replacement therapy. Will give him one-time dose of vitamin B12 injection Discussed with the staff 07/16 Patient still going through withdrawal symptoms, his CIWA score today is 5-11 We added Librium which helped him with relaxing and sleeping. He is continued on CIWA protocol He was started on folate for low level Low magnesium been replaced Liver enzymes trending down Patient counseled to abstinence from alcohol and he agrees Patient denies depression or suicidal/homicidal ideation. No hallucination or delusions. He is lower extremity weakness is much improved today and he can move it more freely 07/17patient was seen and examined today. Patient complaining of anxiousness, currently on Librium, on as needed Ativan. Noted to have tremors and nystagmus. Vital stable. No new labs from today. CBC yesterday unremarkable except platelet 56. BMP unremarkable. LFTs trending down. 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 Symptomatic treatment IV hydration Start folate treatment There is no GI coverage in this facility Labs and medication were reviewed.. Continue same treatment. Continue with symptomatic treatment. Resume home medication. Monitor labs and vitals. DVT and GI prophylaxis. Further recommendations as per clinical course of the patient DVT prophylaxis: Subcutaneous heparin Monitor vital signs and labs Labs and medication were reviewed. Continue same treatment. Further recommendations as per clinical course of the patient PHYSICAL EXAMINATION: GENERAL: The patient is A&O x3, NAD, anxious HEENT: EOMI, Sclerae anicteric, Moist Mucous membranes Neck: Supple, Non tender, No JVD PULMONARY: Equal breath souds B/L, No wheezing, No crackles. CARDIOVASCULAR: S1, S2 present. No murmurs, rubs, or gallops. ABDOMEN: Soft, nontender, nondistended, normoactive bowel sounds. No guarding or rebound tenderness. MUSCULOSKELETAL: No edema, No cyanosis. No clubbing. Normal ROM. Intact peripheral pulses. NEUROLOGICAL: CN 2-12 grossly intact. No FND. Bilateral nystagmus. Skin: No Rash REVIEW OF SYSTEMS: CONSTITUTIONAL: No fever or chills. Planes of anxiety. CARDIOVASCULAR: No chest pain, palpitations or syncope. PULMONARY: No shortness of breath, no cough, sore throat. GASTROINTESTINAL: No nausea, vomiting, diarrhea, abdominal pain. : No Dysuria, urgency, frequency. Extremities: No edema. NEUROLOGICAL: No headaches, no weakness, or numbness Dictation was produced using [employer] dictation software. please excuse any grammatical, word or spelling errors. Objective - Vital Signs Vital signs: Vital Signs Temp 98.3 F 07/17/24 13:27 Pulse 89 07/17/24 13:27 Resp 19 07/17/24 13:27 BP 109/71 07/17/24 13:27 Pulse Ox 98 07/17/24 13:27 FiO2 Intake & Output 07/16/24 07/17/24 07/17/24 18:59 06:59 18:59 Intake Total 540 1300 Balance 540 1300 Weight 54.431 kg Intake: Oral 540 1300 Other: # Voids 1 # Bowel Movements 2 - Labs CBC & Chem 7: 07/16/24 05:42 07/16/24 05:42
[2024-07-17] MEDS: CALCIUM CARBONATE 500 MG CHEWABLE PO PRN (22:13)
[2024-07-18] MEDS: PANTOPRAZOLE 40 MG TABLET PO SCH (06:51)
[2024-07-18 09:56] LABS: Basophils # (A) 0.09 X 10*3/uL (0.00-0.10); Basophils % (A) 1.2 %; Eosinophils # (A) 0.28 X 10*3/uL (0.04-0.35); Eosinophils % (A) 3.7 %; HCT 38.3 % (39.6-50.0); HGB 12.9 g/dL (13.0-17.0); Immature Platelet Fraction 12.2 % (1.1-6.1); Lymphocytes # (A) 3.23 X 10*3/uL (0.90-5.00); Lymphocytes % (A) 42.7 %; MCH 36.8 pg (27.0-32.0); MCHC 33.7 g/dL (32.0-37.0); MCV 109.1 FL (80.0-97.0); Mean Platelet Volume 11.9 FL (9.5-12.2); Monocytes # (A) 0.96 X 10*3/uL (0.20-1.00); Monocytes % (A) 12.7 %; NRBC Per 100 WBC 0 X 10*3/uL (0.00-0.01); Neutrophils # (A) 2.97 X 10*3/uL (1.80-7.70); Neutrophils % (A) 39.3 %; Platelet Count 70 X 10*3/uL (140-440); RBC 3.51 X 10*6/uL (4.40-5.60); RDW 12.8 % (11.5-14.5); WBC 7.56 X 10*3/uL (4.50-10.00)
[2024-07-18 10:03] LABS: Magnesium 1.7 mg/dL (1.5-2.4)
[2024-07-18 10:34] LABS: ALT 68 U/L (10-49); AST 83 U/L (14-35); Albumin 3.7 g/dL (3.8-4.9); Albumin/Globulin Ratio 1.68 Ratio (1.60-3.17); Alkaline Phosphatase 117 U/L (41-126); BUN/Creat Ratio 19.17 Ratio (12.00-20.00); Blood Urea Nitrogen 11.5 mg/dL (9.0-27.0); Calcium 9.6 mg/dL (8.7-10.3); Carbon Dioxide 26.2 mmol/L (21.6-31.8); Chloride 99 mmol/L (96-109); Globulin 2.2 g/dL (1.6-3.3); Glucose 139 mg/dL (70-110); Potassium 4.7 mmol/L (3.5-5.5); Sodium 135 mmol/L (135-145); Total Bilirubin 0.4 mg/dL (0.3-1.2); Total Protein 5.9 g/dL (6.2-8.2)
--- NOTE | 2024-07-18 16:07 | P.PN ---
Subjective Interval History: This is a pleasant 53 years old with past medical history of liver cirrhosis most likely related to alcohol use disorder and nicotine dependence. Presents because he needed help to quit drinking alcohol. Patient has multiple admissions to this facility For similar reasons, he had 1 admission last month and 1 last year. Currently he is fully awake and oriented to time place and person, he follows command he has insight he is calm and he is appropriate. Patient denies chest pain or dyspnea, he feels little bit this biopsy a little bit of headache but no overt abdominal pain or nausea vomiting. No diarrhea He denies dizziness. No new unilateral weakness or tingling. Patient complains from weakness in both lower extremity for several weeks and months that sometimes he needs to hold to walk. Most likely due to alcohol ef fect. He smokes about more than 1 pack/day and he was counseled to quit and he agrees to the nicotine patch. He drinks about fifth of the day and uses little marijuana He had 1 bowel movement He denies depression, suicidal ideation or homicidal ideation He has chronic back pain CBC is unremarkable except for low platelet count at 138, BMP is unremarkable Liver enzymes moderately elevated with AST 407 and ALT 128. Bilirubin is 1.7. Alcohol level was high 103 on admission 07/15 Patient awake alert He is undergoing withdrawal symptoms and he is getting Ativan per CIWA protocol. Other than that he is awake alert. Denies chest pain or dyspnea. He denies weakness or tingling his extremities without upper or lower. He still feels generally weak and lower extremity symmetrically weak which is a chronic. Most likely patient has peripheral neuropathy which is exacerbated by his nutritional deficiency and alcohol use disorder. Patient was able to get up and walk by himself. His gait was little bit wobbly which states that it is baseline but slightly worse most likely secondary to the Ativan he is taking and there withdrawal symptoms No lateralization. No tingling. No saddle numbness or anesthesia. No headache or dizziness. No blurred vision, no slurred speech His liver enzymes elevation looks improvement today. Bilirubin is trending down 1.7 down to 1.5 B12 is 515, TSH is normal 1.0 and folate is less than 2 Folate deficiency might be contributing also to his illness therefore start replacement therapy. Will give him one-time dose of vitamin B12 injection Discussed with the staff 07/16 Patient still going through withdrawal symptoms, his CIWA score today is 5-11 We added Librium which helped him with relaxing and sleeping. He is continued on CIWA protocol He was started on folate for low level Low magnesium been replaced Liver enzymes trending down Patient counseled to abstinence from alcohol and he agrees Patient denies depression or suicidal/homicidal ideation. No hallucination or delusions. He is lower extremity weakness is much improved today and he can move it more freely 07/17patient was seen and examined today. Patient complaining of anxiousness, currently on Librium, on as needed Ativan. Noted to have tremors and nystagmus. Vital stable. No new labs from today. CBC yesterday unremarkable except platelet 56. BMP unremarkable. LFTs trending down. 07/18--- patient was seen and examined today. Continue complain of anxiety and tremors. On CIWA protocol with as needed Ativan, on scheduled Librium, will discontinue Librium and monitor. Vital stable. 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 Symptomatic treatment IV hydration Start folate treatment There is no GI coverage in this facility Labs and medication were reviewed.. Continue same treatment. Continue with symptomatic treatment. Resume home medication. Monitor labs and vitals. DVT and GI prophylaxis. Further recommendations as per clinical course of the patient DVT prophylaxis: Subcutaneous heparin Monitor vital signs and labs Labs and medication were reviewed. Continue same treatment. Further recommendations as per clinical course of the patient PHYSICAL EXAMINATION: GENERAL: The patient is A&O x3, NAD, anxious HEENT: EOMI, Sclerae anicteric, Moist Mucous membranes Neck: Supple, Non tender, No JVD PULMONARY: Equal breath souds B/L, No wheezing, No crackles. CARDIOVASCULAR: S1, S2 present. No murmurs, rubs, or gallops. ABDOMEN: Soft, nontender, nondistended, normoactive bowel sounds. No guarding or rebound tenderness. MUSCULOSKELETAL: No edema, No cyanosis. No clubbing. Normal ROM. Intact peripheral pulses. NEUROLOGICAL: CN 2-12 grossly intact. No FND. Bilateral nystagmus. Skin: No Rash REVIEW OF SYSTEMS: CONSTITUTIONAL: No fever or chills. Planes of anxiety. CARDIOVASCULAR: No chest pain, palpitations or syncope. PULMONARY: No shortness of breath, no cough, sore throat. GASTROINTESTINAL: No nausea, vomiting, diarrhea, abdominal pain. : No Dysuria, urgency, frequency. Extremities: No edema. NEUROLOGICAL: No headaches, no weakness, or numbness Dictation was produced using [employer] dictation software. please excuse any grammatical, word or spelling errors. Objective - Vital Signs Vital signs: Vital Signs Temp 98.0 F 07/18/24 13:11 Pulse 88 07/18/24 13:11 Resp 16 07/18/24 13:11 BP 114/75 07/18/24 13:11 Pulse Ox 100 07/18/24 13:11 FiO2 Intake & Output 07/17/24 07/18/24 07/18/24 18:59 06:59 18:59 Intake Total 1300 1887 Balance 1300 1887 Intake: Oral 1300 1887 Other: # Voids 4 4 # Bowel Movements 1 - Labs CBC & Chem 7: 07/18/24 04:27 07/18/24 04:27 Labs: Abnormal Lab Results - Last 24 Hours (Table) 07/18/24 07/18/24 Range/Units 04:27 04:27 RBC 3.51 L (4.40-5.60) X 10*6/uL Hgb 12.9 L (13.0-17.0) g/dL Hct 38.3 L (39.6-50.0) % MCV 109.1 H (80.0-97.0) FL MCH 36.8 H (27.0-32.0) pg Plt Count 70 L (140-440) X 10*3/uL Immature Plt Fraction 12.2 H (1.1-6.1) % Glucose 139 H (70-110) mg/dL AST 83 H (14-35) U/L ALT 68 H (10-49) U/L Total Protein 5.9 L (6.2-8.2) g/dL Albumin 3.7 L (3.8-4.9) g/dL
--- NOTE | 2024-07-19 15:25 | P.PN ---
Subjective Interval History: This is a pleasant 53 years old with past medical history of liver cirrhosis most likely related to alcohol use disorder and nicotine dependence. Presents because he needed help to quit drinking alcohol. Patient has multiple admissions to this facility For similar reasons, he had 1 admission last month and 1 last year. Currently he is fully awake and oriented to time place and person, he follows command he has insight he is calm and he is appropriate. Patient denies chest pain or dyspnea, he feels little bit this biopsy a little bit of headache but no overt abdominal pain or nausea vomiting. No diarrhea He denies dizziness. No new unilateral weakness or tingling. Patient complains from weakness in both lower extremity for several weeks and months that sometimes he needs to hold to walk. Most likely due to alcohol ef fect. He smokes about more than 1 pack/day and he was counseled to quit and he agrees to the nicotine patch. He drinks about fifth of the day and uses little marijuana He had 1 bowel movement He denies depression, suicidal ideation or homicidal ideation He has chronic back pain CBC is unremarkable except for low platelet count at 138, BMP is unremarkable Liver enzymes moderately elevated with AST 407 and ALT 128. Bilirubin is 1.7. Alcohol level was high 103 on admission 07/15 Patient awake alert He is undergoing withdrawal symptoms and he is getting Ativan per CIWA protocol. Other than that he is awake alert. Denies chest pain or dyspnea. He denies weakness or tingling his extremities without upper or lower. He still feels generally weak and lower extremity symmetrically weak which is a chronic. Most likely patient has peripheral neuropathy which is exacerbated by his nutritional deficiency and alcohol use disorder. Patient was able to get up and walk by himself. His gait was little bit wobbly which states that it is baseline but slightly worse most likely secondary to the Ativan he is taking and there withdrawal symptoms No lateralization. No tingling. No saddle numbness or anesthesia. No headache or dizziness. No blurred vision, no slurred speech His liver enzymes elevation looks improvement today. Bilirubin is trending down 1.7 down to 1.5 B12 is 515, TSH is normal 1.0 and folate is less than 2 Folate deficiency might be contributing also to his illness therefore start replacement therapy. Will give him one-time dose of vitamin B12 injection Discussed with the staff 07/16 Patient still going through withdrawal symptoms, his CIWA score today is 5-11 We added Librium which helped him with relaxing and sleeping. He is continued on CIWA protocol He was started on folate for low level Low magnesium been replaced Liver enzymes trending down Patient counseled to abstinence from alcohol and he agrees Patient denies depression or suicidal/homicidal ideation. No hallucination or delusions. He is lower extremity weakness is much improved today and he can move it more freely 07/17patient was seen and examined today. Patient complaining of anxiousness, currently on Librium, on as needed Ativan. Noted to have tremors and nystagmus. Vital stable. No new labs from today. CBC yesterday unremarkable except platelet 56. BMP unremarkable. LFTs trending down. 07/18--- patient was seen and examined today. Continue complain of anxiety and tremors. On CIWA protocol with as needed Ativan, on scheduled Librium, will discontinue Librium and monitor. Vital stable. LFTs trending down 07/19patient was seen and examined today, continues complain of anxiety and tremors, required IV Ativan per CIWA protocol. Afebrile, vitals unremarkable. 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 Symptomatic treatment IV hydration Start folate treatment There is no GI coverage in this facility Labs and medication were reviewed.. Continue same treatment. Continue with symptomatic treatment. Resume home medication. Monitor labs and vitals. DVT and GI prophylaxis. Further recommendations as per clinical course of the patient DVT prophylaxis: Subcutaneous heparin Monitor vital signs and labs Labs and medication were reviewed. Continue same treatment. Further recommendations as per clinical course of the patient PHYSICAL EXAMINATION: GENERAL: The patient is A&O x3, NAD, anxious HEENT: EOMI, Sclerae anicteric, Moist Mucous membranes Neck: Supple, Non tender, No JVD PULMONARY: Equal breath souds B/L, No wheezing, No crackles. CARDIOVASCULAR: S1, S2 present. No murmurs, rubs, or gallops. ABDOMEN: Soft, nontender, nondistended, normoactive bowel sounds. No guarding or rebound tenderness. MUSCULOSKELETAL: No edema, No cyanosis. No clubbing. Normal ROM. Intact peripheral pulses. NEUROLOGICAL: CN 2-12 grossly intact. No FND. Bilateral nystagmus. Skin: No Rash REVIEW OF SYSTEMS: CONSTITUTIONAL: No fever or chills. Planes of anxiety. CARDIOVASCULAR: No chest pain, palpitations or syncope. PULMONARY: No shortness of breath, no cough, sore throat. GASTROINTESTINAL: No nausea, vomiting, diarrhea, abdominal pain. : No Dysuria, urgency, frequency. Extremities: No edema. NEUROLOGICAL: No headaches, no weakness, or numbness Dictation was produced using [email or web address] dictation software. please excuse any grammatical, word or spelling errors. Objective - Vital Signs Vital signs: Vital Signs Temp 97.4 F L 07/19/24 07:08 Pulse 93 07/19/24 07:08 Resp 16 07/19/24 07:08 BP 118/89 07/19/24 07:08 Pulse Ox 99 07/19/24 07:08 FiO2 Intake & Output 07/18/24 07/19/24 07/19/24 18:59 06:59 18:59 Intake Total 2190 Balance 2190 Intake: Oral 2190 Other: Voiding Method Toilet # Voids 3 4 - Labs CBC & Chem 7: 07/18/24 04:27 07/18/24 04:27
--- NOTE | 2024-07-20 15:25 | P.PN ---
Subjective Interval History: This is a pleasant 53 years old with past medical history of liver cirrhosis most likely related to alcohol use disorder and nicotine dependence. Presents because he needed help to quit drinking alcohol. Patient has multiple admissions to this facility For similar reasons, he had 1 admission last month and 1 last year. Currently he is fully awake and oriented to time place and person, he follows command he has insight he is calm and he is appropriate. Patient denies chest pain or dyspnea, he feels little bit this biopsy a little bit of headache but no overt abdominal pain or nausea vomiting. No diarrhea He denies dizziness. No new unilateral weakness or tingling. Patient complains from weakness in both lower extremity for several weeks and months that sometimes he needs to hold to walk. Most likely due to alcohol ef fect. He smokes about more than 1 pack/day and he was counseled to quit and he agrees to the nicotine patch. He drinks about fifth of the day and uses little marijuana He had 1 bowel movement He denies depression, suicidal ideation or homicidal ideation He has chronic back pain CBC is unremarkable except for low platelet count at 138, BMP is unremarkable Liver enzymes moderately elevated with AST 407 and ALT 128. Bilirubin is 1.7. Alcohol level was high 103 on admission 07/15 Patient awake alert He is undergoing withdrawal symptoms and he is getting Ativan per CIWA protocol. Other than that he is awake alert. Denies chest pain or dyspnea. He denies weakness or tingling his extremities without upper or lower. He still feels generally weak and lower extremity symmetrically weak which is a chronic. Most likely patient has peripheral neuropathy which is exacerbated by his nutritional deficiency and alcohol use disorder. Patient was able to get up and walk by himself. His gait was little bit wobbly which states that it is baseline but slightly worse most likely secondary to the Ativan he is taking and there withdrawal symptoms No lateralization. No tingling. No saddle numbness or anesthesia. No headache or dizziness. No blurred vision, no slurred speech His liver enzymes elevation looks improvement today. Bilirubin is trending down 1.7 down to 1.5 B12 is 515, TSH is normal 1.0 and folate is less than 2 Folate deficiency might be contributing also to his illness therefore start replacement therapy. Will give him one-time dose of vitamin B12 injection Discussed with the staff 07/16 Patient still going through withdrawal symptoms, his CIWA score today is 5-11 We added Librium which helped him with relaxing and sleeping. He is continued on CIWA protocol He was started on folate for low level Low magnesium been replaced Liver enzymes trending down Patient counseled to abstinence from alcohol and he agrees Patient denies depression or suicidal/homicidal ideation. No hallucination or delusions. He is lower extremity weakness is much improved today and he can move it more freely 07/17patient was seen and examined today. Patient complaining of anxiousness, currently on Librium, on as needed Ativan. Noted to have tremors and nystagmus. Vital stable. No new labs from today. CBC yesterday unremarkable except platelet 56. BMP unremarkable. LFTs trending down. 07/18--- patient was seen and examined today. Continue complain of anxiety and tremors. On CIWA protocol with as needed Ativan, on scheduled Librium, will discontinue Librium and monitor. Vital stable. LFTs trending down 07/19patient was seen and examined today, continues complain of anxiety and tremors, required IV Ativan per CIWA protocol. Afebrile, vitals unremarkable. 07/20--patient was seen and examined today, continues complain of anxiety and tremors. Will hold off CIWA protocol today, started on as needed Xanax and Atarax for anxiety. Vital stable, LFTs trending down. CBC stable. 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 Symptomatic treatment IV hydration Start folate treatment There is no GI coverage in this facility Labs and medication were reviewed.. Continue same treatment. Continue with symptomatic treatment. Resume home medication. Monitor labs and vitals. DVT and GI prophylaxis. Further recommendations as per clinical course of the patient DVT prophylaxis: Subcutaneous heparin Monitor vital signs and labs Labs and medication were reviewed. Continue same treatment. Further recommendations as per clinical course of the patient PHYSICAL EXAMINATION: GENERAL: The patient is A&O x3, NAD, anxious HEENT: EOMI, Sclerae anicteric, Moist Mucous membranes Neck: Supple, Non tender, No JVD PULMONARY: Equal breath souds B/L, No wheezing, No crackles. CARDIOVASCULAR: S1, S2 present. No murmurs, rubs, or gallops. ABDOMEN: Soft, nontender, nondistended, normoactive bowel sounds. No guarding or rebound tenderness. MUSCULOSKELETAL: No edema, No cyanosis. No clubbing. Normal ROM. Intact peripheral pulses. NEUROLOGICAL: CN 2-12 grossly intact. No FND. Bilateral nystagmus. Skin: No Rash REVIEW OF SYSTEMS: CONSTITUTIONAL: No fever or chills. Planes of anxiety. CARDIOVASCULAR: No chest pain, palpitations or syncope. PULMONARY: No shortness of breath, no cough, sore throat. GASTROINTESTINAL: No nausea, vomiting, diarrhea, abdominal pain. : No Dysuria, urgency, frequency. Extremities: No edema. NEUROLOGICAL: No headaches, no weakness, or numbness Dictation was produced using [employer] dictation software. please excuse any grammatical, word or spelling errors. Objective - Vital Signs Vital signs: Vital Signs Temp 97.9 F 07/20/24 13:18 Pulse 91 07/20/24 13:18 Resp 16 07/20/24 13:18 BP 173/76 07/20/24 13:18 Pulse Ox 100 07/20/24 13:18 FiO2 Intake & Output 07/19/24 07/20/24 07/20/24 18:59 06:59 18:59 Weight 54.431 kg Other: Voiding Method Toilet Toilet # Voids 3 # Bowel Movements 1 - Labs CBC & Chem 7: 07/18/24 04:27 07/18/24 04:27
[2024-07-20] MEDS: ALPRAZolam 1 MG TAB PO PRN (17:08)
[2024-07-20] MEDS: hydrOXYzine HCL 25 MG TAB PO PRN (22:33)
--- NOTE | 2024-07-21 15:47 | P.PN ---
Subjective Interval History: This is a pleasant 53 years old with past medical history of liver cirrhosis most likely related to alcohol use disorder and nicotine dependence. Presents because he needed help to quit drinking alcohol. Patient has multiple admissions to this facility For similar reasons, he had 1 admission last month and 1 last year. Currently he is fully awake and oriented to time place and person, he follows command he has insight he is calm and he is appropriate. Patient denies chest pain or dyspnea, he feels little bit this biopsy a little bit of headache but no overt abdominal pain or nausea vomiting. No diarrhea He denies dizziness. No new unilateral weakness or tingling. Patient complains from weakness in both lower extremity for several weeks and months that sometimes he needs to hold to walk. Most likely due to alcohol ef fect. He smokes about more than 1 pack/day and he was counseled to quit and he agrees to the nicotine patch. He drinks about fifth of the day and uses little marijuana He had 1 bowel movement He denies depression, suicidal ideation or homicidal ideation He has chronic back pain CBC is unremarkable except for low platelet count at 138, BMP is unremarkable Liver enzymes moderately elevated with AST 407 and ALT 128. Bilirubin is 1.7. Alcohol level was high 103 on admission 07/15 Patient awake alert He is undergoing withdrawal symptoms and he is getting Ativan per CIWA protocol. Other than that he is awake alert. Denies chest pain or dyspnea. He denies weakness or tingling his extremities without upper or lower. He still feels generally weak and lower extremity symmetrically weak which is a chronic. Most likely patient has peripheral neuropathy which is exacerbated by his nutritional deficiency and alcohol use disorder. Patient was able to get up and walk by himself. His gait was little bit wobbly which states that it is baseline but slightly worse most likely secondary to the Ativan he is taking and there withdrawal symptoms No lateralization. No tingling. No saddle numbness or anesthesia. No headache or dizziness. No blurred vision, no slurred speech His liver enzymes elevation looks improvement today. Bilirubin is trending down 1.7 down to 1.5 B12 is 515, TSH is normal 1.0 and folate is less than 2 Folate deficiency might be contributing also to his illness therefore start replacement therapy. Will give him one-time dose of vitamin B12 injection Discussed with the staff 07/16 Patient still going through withdrawal symptoms, his CIWA score today is 5-11 We added Librium which helped him with relaxing and sleeping. He is continued on CIWA protocol He was started on folate for low level Low magnesium been replaced Liver enzymes trending down Patient counseled to abstinence from alcohol and he agrees Patient denies depression or suicidal/homicidal ideation. No hallucination or delusions. He is lower extremity weakness is much improved today and he can move it more freely 07/17patient was seen and examined today. Patient complaining of anxiousness, currently on Librium, on as needed Ativan. Noted to have tremors and nystagmus. Vital stable. No new labs from today. CBC yesterday unremarkable except platelet 56. BMP unremarkable. LFTs trending down. 07/18--- patient was seen and examined today. Continue complain of anxiety and tremors. On CIWA protocol with as needed Ativan, on scheduled Librium, will discontinue Librium and monitor. Vital stable. LFTs trending down 07/19patient was seen and examined today, continues complain of anxiety and tremors, required IV Ativan per CIWA protocol. Afebrile, vitals unremarkable. 07/20--patient was seen and examined today, continues complain of anxiety and tremors. Will hold off CIWA protocol today, started on as needed Xanax and Atarax for anxiety. Vital stable, LFTs trending down. CBC stable. 07/21/24--patient was seen and examined today. Continues complain of anxiety and tremors, very anxious. Vital stable. Will continue Xanax and Atarax for anxiety, psychiatry consulted. 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 Folate supplement Symptomatic treatment Received IV fluids initially As needed Ativan and Atarax for severe anxiety, psychiatry consulted. DVT prophylaxis: Subcutaneous heparin Monitor vital signs and labs Labs and medication were reviewed. Continue same treatment. Further recommendations as per clinical course of the patient PHYSICAL EXAMINATION: GENERAL: The patient is A&O x3, NAD, anxious HEENT: EOMI, Sclerae anicteric, Moist Mucous membranes Neck: Supple, Non tender, No JVD PULMONARY: Equal breath souds B/L, No wheezing, No crackles. CARDIOVASCULAR: S1, S2 present. No murmurs, rubs, or gallops. ABDOMEN: Soft, nontender, nondistended, normoactive bowel sounds. No guarding or rebound tenderness. MUSCULOSKELETAL: No edema, No cyanosis. No clubbing. Normal ROM. Intact peripheral pulses. NEUROLOGICAL: CN 2-12 grossly intact. No FND. Bilateral nystagmus. Skin: No Rash REVIEW OF SYSTEMS: CONSTITUTIONAL: No fever or chills. Planes of anxiety. CARDIOVASCULAR: No chest pain, palpitations or syncope. PULMONARY: No shortness of breath, no cough, sore throat. GASTROINTESTINAL: No nausea, vomiting, diarrhea, abdominal pain. : No Dysuria, urgency, frequency. Extremities: No edema. NEUROLOGICAL: No headaches, no weakness, or numbness Dictation was produced using [employer] dictation software. please excuse any grammatical, word or spelling errors. Objective - Vital Signs Vital signs: Vital Signs Temp 97.9 F 07/21/24 12:35 Pulse 96 07/21/24 12:35 Resp 18 07/21/24 12:35 BP 110/71 07/21/24 12:35 Pulse Ox 99 07/21/24 12:35 FiO2 Intake & Output 07/20/24 07/21/24 07/21/24 18:59 06:59 18:59 Intake Total 2160 Output Total 450 Balance 1710 Weight 54.431 kg Intake: Oral 2160 Output: Urine 450 Other: Voiding Method Toilet # Voids 3 5 # Bowel Movements 0 - Labs CBC & Chem 7: 07/18/24 04:27 07/18/24 04:27
[2024-07-22 14:25] VITALS: BP 128/78; PULSE 91; RESP 17; TEMP 98.7
--- NOTE | 2024-07-22 15:11 | P.DS ---
Providers Date of admission: 07/13/24 17:17 Expected date of discharge: 07/22/24 Attending physician: Miquel Clark Consults: 07/21/24 11:44 Consult Physician Routine Consulting Provider: Psychiatry - [facility] Psychiatry Consult Reason/Comments: anxiety Do you want consulting provider notified?: Already Contacted Primary care physician: Stated None Hospital Course: Discharge diagnoses: Alcohol use disorder at risk of alcohol withdrawal Severe anxiety: Folate deficiency: Alcoholic transaminitis-improving Alcoholic liver cirrhosis Folate deficiency Alcoholic induced thrombocytopenia, mild Nicotine dependence Possible peripheral neuropathy secondary to alcohol use disorder Chronic back pain 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 Received thiamine folic acid and multivitamin, continued at discharge. Folate level was low. Continued on short course of Xanax and Atarax for his severe anxiety. LFTs trended down during hospitalization, patient went asymptomatic. Outpatient follow-up with psychiatry. Hospital course: This is a pleasant 53 years old with past medical history of liver cirrhosis mos t likely related to alcohol use disorder and nicotine dependence. Presents because he needed help to quit drinking alcohol. Patient has multiple admissions to this facility For similar reasons, he had 1 admission last month and 1 last year. Currently he is fully awake and oriented to time place and person, he follows command he has insight he is calm and he is appropriate. Patient denies chest pain or dyspnea, he feels little bit this biopsy a little bit of headache but no overt abdominal pain or nausea vomiting. No diarrhea He denies dizziness. No new unilateral weakness or tingling. Patient complains from weakness in both lower extremity for several weeks and months that sometimes he needs to hold to walk. Most likely due to alcohol effect. He smokes about more than 1 pack/day and he was counseled to quit and he agrees to the nicotine patch. He drinks about fifth of the day and uses little marijuana He had 1 bowel movement He denies depression, suicidal ideation or homicidal ideation He has chronic back pain CBC is unremarkable except for low platelet count at 138, BMP is unremarkable Liver enzymes moderately elevated with AST 407 and ALT 128. Bilirubin is 1.7. Alcohol level was high 103 on admission 07/15 Patient awake alert He is undergoing withdrawal symptoms and he is getting Ativan per CIWA protocol. Other than that he is awake alert. Denies chest pain or dyspnea. He denies weakness or tingling his extremities without upper or lower. He still feels generally weak and lower extremity symmetrically weak which is a chronic. Most likely patient has peripheral neuropathy which is exacerbated by his nutritional deficiency and alcohol use disorder. Patient was able to get up and walk by himself. His gait was little bit wobbly which states that it is base line but slightly worse most likely secondary to the Ativan he is taking and there withdrawal symptoms No lateralization. No tingling. No saddle numbness or anesthesia. No headache or dizziness. No blurred vision, no slurred speech His liver enzymes elevation looks improvement today. Bilirubin is trending down 1.7 down to 1.5 B12 is 515, TSH is normal 1.0 and folate is less than 2 Folate deficiency might be contributing also to his illness therefore start replacement therapy. Will give him one-time dose of vitamin B12 injection Discussed with the staff 07/16 Patient still going through withdrawal symptoms, his CIWA score today is 5-11 We added Librium which helped him with relaxing and sleeping. He is continued on CIWA protocol He was started on folate for low level Low magnesium been replaced Liver enzymes trending down Patient counseled to abstinence from alcohol and he agrees Patient denies depression or suicidal/homicidal ideation. No hallucination or delusions. He is lower extremity weakness is much improved today and he can move it more freely 07/17patient was seen and examined today. Patient complaining of anxiousness, currently on Librium, on as needed Ativan. Noted to have tremors and nystagmus. Vital stable. No new labs from today. CBC yesterday unremarkable except platelet 56. BMP unremarkable. LFTs trending down. 07/18--07/22/24--patient continues complain of anxiety and tremors, initially received as needed Ativan per CIWA protocol, also was started on scheduled Librium which was later on discontinued. Patient was monitored. LFTs trended down. Patient continued complain of significant anxiety, patient did not report any symptoms of depression, did not have any suicidal or homicidal ideations. Later on CIWA protocol discontinued. Patient was started on as needed Atarax and Xanax for anxiety. Psychiatry consulted, patient wanted to follow-up with psychiatry as outpatient. Patient condition vital stable at discharge. Please refer to medical assessment plan for further details. Follow-up with PCP in 1 week Follow-up with psychiatry in 1 week. 07/18--- patient was seen and examined today. Continue complain of anxiety and tremors. On CIWA protocol with as needed Ativan, on scheduled Librium, will discontinue Librium and monitor. Vital stable. LFTs trending down 07/19patient was seen and examined today, continues complain of anxiety and tremors, required IV Ativan per CIWA protocol. Afebrile, vitals unremarkable. 07/20--patient was seen and examined today, continues complain of anxiety and tremors. Will hold off CIWA protocol today, started on as needed Xanax and Atarax for anxiety. Vital stable, LFTs trending down. CBC stable. 07/21/24--patient was seen and examined today. Continues complain of anxiety and tremors, very anxious. Vital stable. Will continue Xanax and Atarax for anxiety, psychiatry consulted. PHYSICAL EXAMINATION: GENERAL: The patient is A&O x3, NAD HEENT: EOMI, Sclerae anicteric, Moist Mucous membranes Neck: Supple, Non tender, No JVD PULMONARY: Equal breath souds B/L, No wheezing, No crackles. CARDIOVASCULAR: S1, S2 present. No murmurs, rubs, or gallops. ABDOMEN: Soft, nontender, nondistended, normoactive bowel sounds. No guarding or rebound tenderness. MUSCULOSKELETAL: No edema, No cyanosis. No clubbing. Normal ROM. Intact peripheral pulses. NEUROLOGICAL: CN 2-12 grossly intact. No FND SKIN: No rashes. Dictation was produced using [employer] dictation software. please excuse any grammatical, word or spelling errors. Plan - Discharge Summary Discharge Rx Participant: No New Discharge Prescriptions: New Folic Acid 1 mg PO DAILY #60 tab Acetaminophen Tab [Tylenol] 650 mg PO Q6HR PRN tab PRN Reason: Fever And/ Or Pain Thiamine [Vitamin B-1] 100 mg PO DAILY #60 tablet hydrOXYzine HCL [Atarax] 10 mg PO TID #60 tab Multivitamin [Multivitamins Adult Gummies] 1 each PO DAILY #60 tablet ALPRAZolam [Xanax] 1 mg PO BID PRN #6 tab PRN Reason: Anxiety Discharge Medication List ALPRAZolam [Xanax] 1 mg PO BID PRN #6 tab 01/02/25 [Rx] Acetaminophen Tab [Tylenol] 650 mg PO Q6HR PRN tab 07/22/24 [Rx] Folic Acid 1 mg PO DAILY #60 tab 07/22/24 [Rx] Multivitamin [Multivitamins Adult Gummies] 1 each PO DAILY #60 tablet 07/22/24 [Rx] Thiamine [Vitamin B-1] 100 mg PO DAILY #60 tablet 07/22/24 [Rx] hydrOXYzine HCL [Atarax] 10 mg PO TID #60 tab 07/22/24 [Rx] Follow up Appointment(s)/Referral(s): Jean-Paul Stanton MD [Medical Doctor] - 1 Week None,Stated [Primary Care Provider] - 1-2 days Discharge/Stand Alone Forms: AA Meetings Dist 22 & 24 - [facility], Community Resources, Outpatient Counseling, In Substance Abuse Facilities Discharge Disposition: HOME SELF-CARE
== END 2024-07-22 17:15 | disposition home or self-care (01) | DRG 775 ==
LOC: EC 16:01 → 4SSUR 17:16 → OBSVTOIN 17:17 → 4SSUR 20:01
PROVIDERS: ADMIT Hospitalist; ATTEND Hospitalist
DX: F10.139 Alcohol abuse with withdrawal, unspecified (principal); F10.129 Alcohol abuse with intoxication, unspecified; K70.30 Alcoholic cirrhosis of liver without ascites; G62.1 Alcoholic polyneuropathy; D69.59 Other secondary thrombocytopenia; F41.9 Anxiety disorder, unspecified; E53.8 Deficiency of other specified B group vitamins; E63.9 Nutritional deficiency, unspecified; F17.210 Nicotine dependence, cigarettes, uncomplicated; G89.29 Other chronic pain; M54.9 Dorsalgia, unspecified; Y90.5 Blood alcohol level of 100-119 mg/100 ml; Z79.899 Other long term (current) drug therapy
CPT/HCPCS: 36415; 80048; 80053; 80076; 80320; 82607; 82746; 83690; 83735; 84443; 85025; 96361; 96374; 96375; 96376; 99285

== ENCOUNTER 2024-10-11 22:58 | Observation (INO) | payer OTHER ==
[2024-10-11 23:06] LABS: Glucose,Whole Blood 133 mg/dL (70-110)
--- NOTE | 2024-10-11 23:06 | ED ---
Seizure HPI - General Chief Complaint: Seizure Stated Complaint: Seizure Time Seen by Provider: 10/11/24 22:59 Source: patient, EMS, RN notes reviewed, old records reviewed Mode of arrival: EMS Limitations: no limitations - History of Present Illness Initial Comments: This is a 54-year-old male to the ER for evaluation as patient presents today for evaluation regards to seizure alcohol withdrawal seizure, still having alcohol withdrawal symptoms attempting to detox from alcohol MD Complaint: seizure -: days(s) Description of Episode: loss of consciousness, tonic-clonic movement -: second(s) Witnessed: yes - by bystander Seizure History: known seizure disorder Place: home Possible Precipitating Event: none Associated Symptoms: denies other symptoms Treatments Prior to Arrival: none - Related Data Home Medications Medication Instructions Recorded Confirmed Cholecalciferol (Vitamin D3) 1,250 mcg PO FR 10/12/24 10/12/24 [Vitamin D3 (1250 Mcg = 50,000 Iu)] Multivitamin [Multivitamins Adult 1 tab PO DAILY 10/12/24 10/12/24 Gummies] Sertraline [Zoloft] 50 mg PO DAILY 10/12/24 10/12/24 Viagra 100mg (Unverified) 1 tab PO DAILY PRN 10/12/24 10/12/24 Previous Rx's Medication Instructions Recorded Folic Acid 1 mg PO DAILY #60 tab 07/22/24 Thiamine [Vitamin B-1] 100 mg PO DAILY tab 10/15/24 Allergies Allergy/AdvReac Type Severity Reaction Status Date / Time lactose AdvReac Diarrhea - Verified 10/12/24 07:55 patient denies Review of Systems ROS Statement: Those systems with pertinent positive or pertinent negative responses have been documented in the HPI. ROS Other: All systems not noted in ROS Statement are negative. Past Medical History Past Medical History: Liver Disease Additional Past Medical History / Comment(s): alcoholic cirrhosis History of Any Multi-Drug Resistant Organisms: None Reported Past Surgical History: No Surgical Hx Reported Past Anesthesia/Blood Transfusion Reactions: No Reported Reaction Past Psychological History: Anxiety, Depression Smoking Status: Current every day smoker Past Alcohol Use History: Abuse, Daily, Heavy Past Drug Use History: Marijuana - Past Family History Father Family Medical History: Cancer General Exam General appearance: alert, in no apparent distress, anxious, in distress Head exam: Present: atraumatic, normocephalic, normal inspection Eye exam: Present: normal appearance, PERRL, EOMI. Absent: scleral icterus, conjunctival injection, periorbital swelling ENT exam: Present: normal exam, mucous membranes moist Neck exam: Present: normal inspection. Absent: tenderness, meningismus, lymp hadenopathy Respiratory exam: Present: normal lung sounds bilaterally. Absent: respiratory distress, wheezes, rales, rhonchi, stridor Cardiovascular Exam: Present: normal rhythm, tachycardia, normal heart sounds. Absent: systolic murmur, diastolic murmur, rubs, gallop, clicks GI/Abdominal exam: Present: soft, normal bowel sounds. Absent: distended, tenderness, guarding, rebound, rigid Extremities exam: Present: normal inspection, full ROM, normal capillary refill. Absent: tenderness, pedal edema, joint swelling, calf tenderness Back exam: Present: normal inspection Neurological exam: Present: alert, oriented X3, CN II-XII intact Psychiatric exam: Present: normal affect, normal mood Skin exam: Present: warm, dry, intact, normal color. Absent: rash Course Vital Signs 10/11/24 10/12/24 10/12/24 22:59 01:41 04:00 Temperature 98.4 F Pulse Rate 101 H 96 82 Respiratory 18 18 18 Rate Blood Pressure 149/95 148/92 115/85 O2 Sat by Pulse 95 95 97 Oximetry 10/12/24 10/12/24 10/12/24 06:18 08:43 11:45 Temperature 98.7 F 98.1 F Pulse Rate 77 84 83 Respiratory 18 18 20 Rate Blood Pressure 114/79 112/72 145/98 O2 Sat by Pulse 97 99 100 Oximetry 10/12/24 15:16 Temperature Pulse Rate 105 H Respiratory 22 Rate Blood Pressure 132/90 O2 Sat by Pulse 100 Oximetry - Reevaluation(s) Reevaluation #1: 10/11/24 23:09 Medical records reviewed Reevaluation #2: 10/11/24 23:39 Patient has no recurrent seizure here in the ER Reevaluation #3: 10/11/24 23:39 Patient informed of results and questions answered Reevaluation #4: Was pt. sent in by a medical professional or institution (, PA, [employer] [employer] [employer], urgent care, hospital, or long-term...) When possible be specific @ -no Did you speak to anyone other than the patient for history (EMS, parent, family, police, friend...)? What history was obtained from this source @ -no Did you review nursing and triage notes (agree or disagree)? Why? @ -agree Are old charts reviewed (outside hosp., previous admission, EMS record, old EKG, old radiological studies, urgent care reports/EKG's, long-term records)? Report findings @ -yes Differential Diagnosis (chest pain, altered mental status, abdominal pain women, abdominal pain men, vaginal bleeding, weakness, fever, dyspnea, syncope, headache, dizziness, GI bleed, back pain, seizure, CVA, palpatations, mental health, musculoskeletal)? @ -prior EKG interpreted by me (3pts min.). @ -yes X-rays interpreted by me (1pt min.). @ -no CT interpreted by me (1pt min.). @ -no U/S interpreted by me (1pt. min.). @ -no What testing was considered but not performed or refused? (CT, X-rays, U/S, labs)? Why? @ -none What meds were considered but not given or refused? Why? @ -none Did you discuss the management of the patient with other professionals (p rofessionals i.e. , PA, [facility], lab, RT, psych nurse, administrator social welfare, financial solutions advisor, teacher, liaison officer, case packer)? Give summary @ -no Was smoking cessation discussed for >3mins.? @ -no Was critical care preformed (if so, how long)? @ -no Were there social determinants of health that impacted care today? How? (Homelessness, low income, unemployed, alcoholism, drug addiction, transportation, low edu. Level, literacy, decrease access to med. care, nursing home, rehab)? @ -none Was there de-escalation of care discussed even if they declined (Discuss DNR or withdrawal of care, Hospice)? DNR status @ -no What co-morbidities impacted this encounter? (DM, HTN, Smoking, COPD, CAD, Cancer, CVA, ARF, Chemo, Hep., AIDS, mental health diagnosis, sleep apnea, morbid obesity)? @ -none Was patient admitted / discharged? Hospital course, mention meds given and route, prescriptions, significant lab abnormalities, going to OR and other pertinent info. @ - 54 male to ER for new onset seizures alcohol withdrawal seizures patient will be admitted for alcohol withdrawal Discharge Undiagnosed new problem with uncertain prognosis? @ -no Drug Therapy requiring intensive monitoring for toxicity (Heparin, Nitro, Insulin, Cardizem)? @ -no Were any procedures done? @ -no Diagnosis/symptom? @ -Alcohol withdrawal seizure alcohol withdrawal Acute, or Chronic, or Acute on Chronic? @ -Acute Uncomplicated (without systemic symptoms) or Complicated (systemic symptoms)? @ -Complicated Side effects of treatment? @ -no Exacerbation, Progression, or Severe Exacerbation? @ -exacerbation Poses a threat to life or bodily function? How? (Chest pain, [place], [place], pneumonia, PE, COPD, DKA, ARF, appy, cholecystitis, CVA, Diverticulitis, Homicidal, Suicidal, threat to staff... and all critical care pts) @ -yes significant withdrawal Reevaluation #5: Differential Seizure: Recurrent seizure disorder, febrile seizure, alcohol withdrawal, stimulants, meningitis, encephalitis, intercranial hemorrhage, intracranial tumor, stroke, eclampsia, thyrotoxicosis, hypocalcemia, hyponatremia, hypernatremia, hypomagnesemia, psychogenic, this is not meant to be an all-inclusive list. Medical Decision Making - Medical Decision Making 54 male to ER for new onset seizures alcohol withdrawal seizures patient will be admitted for alcohol withdrawal - Lab Data Result diagrams: 10/15/24 03:41 10/15/24 03:41 Lab Results 10/11/24 10/11/24 10/11/24 Range/Units 23:03 23:03 23:05 WBC 8.2 (3.8-10.6) k/uL RBC 4.17 L (4.30-5.90) m/uL Hgb 14.6 (13.0-17.5) gm/dL Hct 42.6 (39.0-53.0) % MCV 102.3 H (80.0-100.0) fL MCH 35.0 (25.0-35.0) pg MCHC 34.2 (31.0-37.0) g/dL RDW 15.0 (11.5-15.5) % Plt Count 128 L (150-450) k/uL MPV 8.1 Neutrophils % 75 % Lymphocytes % 17 % Monocytes % 5 % Eosinophils % 1 % Basophils % 1 % Neutrophils # 6.2 (1.3-7.7) k/uL Lymphocytes # 1.4 (1.0-4.8) k/uL Monocytes # 0.5 (0-1.0) k/uL Eosinophils # 0.1 (0-0.7) k/uL Basophils # 0.1 (0-0.2) k/uL Macrocytosis Slight Sodium 131 L (137-145) mmol/L Potassium 3.5 (3.5-5.1) mmol/L Chloride 97 L (98-107) mmol/L Carbon Dioxide 21 L (22-30) mmol/L Anion Gap 13 mmol/L BUN 5 L (9-20) mg/dL Creatinine 0.52 L (0.66-1.25) mg/dL Est GFR (CKD-EPI)AfAm >90 (>60 ml/min/1.73 sqM) Est GFR (CKD-EPI)NonAf >90 (>60 ml/min/1.73 sqM) Glucose 119 H (74-99) mg/dL POC Glucose (mg/dL) 133 H (70-110) mg/dL POC Glu Latin Dance Instructor ID Bhupendra Jesus Calcium 9.0 (8.4-10.2) mg/dL Phosphorus 2.4 L (2.5-4.5) mg/dL Magnesium 1.3 L (1.6-2.3) mg/dL Total Bilirubin 2.5 H (0.2-1.3) mg/dL AST 79 H (17-59) U/L ALT 30 (4-49) U/L Alkaline Phosphatase 96 (38-126) U/L Total Protein 7.0 (6.3-8.2) g/dL Albumin 4.3 (3.5-5.0) g/dL Lipase 118 (23-300) U/L Serum Alcohol <10 mg/dL - EKG Data -: EKG Interpreted by Me (EKS is sinus 95 RI 123 QRS 90 QTc 410) Disposition Clinical Impression: Alcoholic intoxication, Alcohol withdrawal, New onset seizure Disposition: HOME SELF-CARE Condition: Good Is patient prescribed a controlled substance at d/c from ED?: No Time of Disposition: 23:55
[2024-10-11] MEDS: SODIUM CHLORIDE 0.9% 1,000 ML IV STA (23:14)
[2024-10-11] MEDS: SODIUM CHLORIDE 0.9% 500 ML 500 ML IV STA (23:15)
[2024-10-11 23:20] LABS: Basophils # (A) 0.1 k/uL (0-0.2); Basophils % (A) 1 %; Eosinophils # (A) 0.1 k/uL (0-0.7); Eosinophils % (A) 1 %; HCT 42.6 % (39.0-53.0); HGB 14.6 gm/dL (13.0-17.5); Lymphocytes # (A) 1.4 k/uL (1.0-4.8); Lymphocytes % (A) 17 %; MCHC 34.2 g/dL (31.0-37.0); MCV 102.3 fL (80.0-100.0); Macrocytosis Slight; Mean Platelet Volume 8.1; Monocytes # (A) 0.5 k/uL (0-1.0); Monocytes % (A) 5 %; Neutrophils # (A) 6.2 k/uL (1.3-7.7); Neutrophils % (A) 75 %; Platelet Count 128 k/uL (150-450); RBC 4.17 m/uL (4.30-5.90); WBC 8.2 k/uL (3.8-10.6)
[2024-10-11] MEDS ORDERED: LORazepam 2 MG/ML INJ IV PRN ×3 (23:25→23:39)
[2024-10-11] MEDS ORDERED: NALOXONE 0.4 MG/ML 1 ML VIAL IV PRN (23:39)
[2024-10-11] MEDS ORDERED: ONDANSETRON 4 MG/2 ML VIAL IVP PRN (23:39)
[2024-10-12] LABS: ALT 30 U/L (4-49); African American GFR (CKD) >90 (>60 ml/min/1.73 sqM); Albumin 4.3 g/dL (3.5-5.0); Alcohol <10 mg/dL; Anion Gap 13 mmol/L; Blood Urea Nitrogen 5 mg/dL (9-20); Carbon Dioxide 21 mmol/L (22-30); Chloride 97 mmol/L (98-107); Glucose 119 mg/dL (74-99); Lipase 118 U/L (23-300); Non-African American GFR(CKD) >90 (>60 ml/min/1.73 sqM); Sodium 131 mmol/L (137-145); Total Bilirubin 2.5 mg/dL (0.2-1.3)
[2024-10-12 00:05] LABS: AST 79 U/L (17-59); Alkaline Phosphatase 96 U/L (38-126); Magnesium 1.3 mg/dL (1.6-2.3); Phosphorus 2.4 mg/dL (2.5-4.5); Potassium 3.5 mmol/L (3.5-5.1)
[2024-10-12] MEDS: SODIUM CHLORIDE 0.9% 1,000 ML IV SCH (00:41)
[2024-10-12] MEDS: NICOTINE 21MG/24HR PATCH TRANSDERM STA (00:41)
[2024-10-12] MEDS: LORazepam 2 MG/ML INJ IV PRN (01:38)
[2024-10-12] MEDS: LORazepam 0.5 MG TAB PO PRN (06:23)
[2024-10-12 07:18] LABS: ALT 26 U/L (4-49); AST 54 U/L (17-59); African American GFR (CKD) >90 (>60 ml/min/1.73 sqM); Albumin 3.3 g/dL (3.5-5.0); Alkaline Phosphatase 71 U/L (38-126); Anion Gap 4 mmol/L; Blood Urea Nitrogen 4 mg/dL (9-20); Calcium 8.3 mg/dL (8.4-10.2); Carbon Dioxide 27 mmol/L (22-30); Chloride 101 mmol/L (98-107); Glucose 80 mg/dL (74-99); Magnesium 1.5 mg/dL (1.6-2.3); Non-African American GFR(CKD) >90 (>60 ml/min/1.73 sqM); Phosphorus 3.2 mg/dL (2.5-4.5); Potassium 3.5 mmol/L (3.5-5.1); Sodium 132 mmol/L (137-145); Total Bilirubin 2.2 mg/dL (0.2-1.3); Total Protein 5.6 g/dL (6.3-8.2)
[2024-10-12] MEDS: MULTIVITAMINS, THERA 1 EACH TAB PO SCH (08:46)
[2024-10-12] MEDS: FOLIC ACID 1 MG TAB PO SCH (08:46)
[2024-10-12 08:47] LABS: Basophils % (A) 1 %; Eosinophils # (A) 0.1 k/uL (0-0.7); Eosinophils % (A) 1 %; HCT 38.9 % (39.0-53.0); HGB 12.5 gm/dL (13.0-17.5); Lymphocytes # (A) 2.8 k/uL (1.0-4.8); Lymphocytes % (A) 41 %; MCHC 32.1 g/dL (31.0-37.0); MCV 105.8 fL (80.0-100.0); Macrocytosis Moderate; Mean Platelet Volume 9.4; Monocytes # (A) 0.3 k/uL (0-1.0); Monocytes % (A) 5 %; Neutrophils # (A) 3.5 k/uL (1.3-7.7); Neutrophils % (A) 51 %; Platelet Count 117 k/uL (150-450); RBC 3.67 m/uL (4.30-5.90); RDW 15.7 % (11.5-15.5); WBC 6.8 k/uL (3.8-10.6)
[2024-10-12] MEDS: LORazepam 1 MG TAB PO PRN ×2 (11:57→15:38)
--- NOTE | 2024-10-12 16:26 | P.CNNES ---
History of Present Illness Consult date: 10/12/24 Requesting physician: Wendy Radford Reason for Consult: seizures History of Present Illness: This is a 54-year-old gentleman with history of significant alcohol use, alcohol withdrawal seizures who presents the emergency department because of convulsion. Patient does acknowledge that he continues to drink heavily almost daily and drinks about a pint a day when he drinks. His last drink was this past Friday and it seems that yesterday he had a convulsive episode and he stated that it was worse than his prior episodes when he stopped drinking. He also bit his tongue. Prior to the episode he felt his lower extremities were painful. He stated that the episode of convulsion lasted maybe 5 to 8 minutes. He felt like he was aware in and outs when he was having the convulsion. He does smoke 3/4 to 1 pack daily. In the past as stated earlier he has a history of alcohol withdrawal seizures and his seizures only happen when he stopped drinking. His longest time that he stopped drinking was for 30 days and during that time past 2 weeks he never had any seizures. Denies any true seizure activity. He has been having seizure-like activity over the last 2 to 3 years. 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 Some of the workup during this hospital visit consisted of: AST 79 ALT is 30, calcium is 9.0, sodium is 131, serum glucose is 119 Serum alcohol is less than 10. Review of Systems As per HPI. Past Medical History Past Medical History: Liver Disease Additional Past Medical History / Comment(s): alcoholic cirrhosis History of Any Multi-Drug Resistant Organisms: None Reported Past Surgical History: No Surgical Hx Reported Past Anesthesia/Blood Transfusion Reactions: No Reported Reaction Past Psychological History: Anxiety, Depression Smoking Status: Current every day smoker Past Alcohol Use History: Abuse, Daily, Heavy Past Drug Use History: Marijuana - Past Family History Father Family Medical History: Cancer Medications and Allergies Home Medications Medication Instructions Recorded Confirmed Type Folic Acid 1 mg PO DAILY #60 tab 07/22/24 10/12/24 Rx Cholecalciferol (Vitamin D3) 1,250 mcg PO FR 10/12/24 10/12/24 History [Vitamin D3 (1250 Mcg = 50,000 Iu)] Multivitamin [Multivitamins Adult 1 tab PO DAILY 10/12/24 10/12/24 History Gummies] Sertraline [Zoloft] 50 mg PO DAILY 10/12/24 10/12/24 History Viagra 100mg (Unverified) 1 tab PO DAILY PRN 10/12/24 10/12/24 History Allergies Allergy/AdvReac Type Severity Reaction Status Date / Time lactose AdvReac Diarrhea - Verified 10/12/24 07:55 patient denies Physical Examination - Vital Signs Vital Signs: Vital Signs Temp Pulse Resp BP Pulse Ox 10/12/24 15:16 105 H 22 132/90 100 10/12/24 11:45 98.1 F 83 20 145/98 100 10/12/24 08:43 98.7 F 84 18 112/72 99 10/12/24 06:18 77 18 114/79 97 10/12/24 04:00 82 18 115/85 97 10/12/24 01:41 96 18 148/92 95 10/11/24 22:59 98.4 F 101 H 18 149/95 95 GENERAL: The patient is lying in bed and is not in acute distress. NEUROLOGICAL: Higher mental function: The patient is awake, alert, oriented to self, place and time. Patient is following commands. No aphasia and no neglect. Cranial nerves: The pupils are round, equal and reactive to light and accommodation. Visual santiago are full to confrontation throughout. Extraocular movement is intact no nystagmus is noted. Facial sensation is normal to touch throughout. The facial strength is normal throughout. Hearing is normal bilaterally to hand rub. Tongue is midline and moved [id number] without any difficulty. No dysarthria is noted. Shoulder shrug is normal bilaterally. Motor: The strength is 5 over 5 throughout. Normal tone and bulk. Cerebellum: Normal finger to nose bilaterally. Sensation: Sensation is normal to touch throughout. Reflexes (right/left): 2+ throughout. Plantars are downgoing bilaterally. Results - Laboratory Findings CBC and BMP: 10/12/24 06:17 10/12/24 06:17 Abnormal Lab Findings: Abnormal Labs 10/11/24 10/11/24 10/11/24 23:03 23:03 23:05 RBC 4.17 L Hgb Hct MCV 102.3 H RDW Plt Count 128 L Sodium 131 L Chloride 97 L Carbon Dioxide 21 L BUN 5 L Creatinine 0.52 L Glucose 119 H POC Glucose (mg/dL) 133 H Calcium Phosphorus 2.4 L Magnesium 1.3 L Total Bilirubin 2.5 H AST 79 H Total Protein Albumin 10/12/24 10/12/24 06:17 06:17 RBC 3.67 L Hgb 12.5 L Hct 38.9 L MCV 105.8 H RDW 15.7 H Plt Count 117 L Sodium 132 L Chloride Carbon Dioxide BUN 4 L Creatinine 0.58 L Glucose POC Glucose (mg/dL) Calcium 8.3 L Phosphorus Magnesium 1.5 L Total Bilirubin 2.2 H AST Total Protein 5.6 L Albumin 3.3 L Assessment and Plan Assessment: This is a 54-year-old gentleman with history of alcohol withdrawal seizure, significant alcohol use, tobacco use who presents emergency department because of convulsion with tongue bite. Last alcohol was this past Friday. His alcohol level is less than 10. Breakthrough seizure seems provoked due to alcohol withdrawal History of alcohol withdrawal seizures Significant alcohol use and his last alcohol drink was this past Friday. Tobacco use Plan: I ordered a routine EEG. I ordered a CT of the head I will not start the patient on any antiseizure medication since this seems more provoked from alcohol withdrawal. Will start patient on antiseizure medication only if EEG is relevant for increased risk for seizures or the CT shows any a bnormality that can increase risk for seizure Seizure precaution Per the [place] DMV because of the seizure, to avoid driving for 6 months until seizure-free, avoid heights, avoid swimming unassisted or using heavy machinery. 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 In the meantime I would recommend the patient to seek alcohol Anonymous. Patient was counseled on alcohol cessation Patient was counseled on tobacco cessation Patient is on CIWA protocol Started the patient on thiamine 100 mg daily Will defer the rest of the medical management to primary and other specialist next Thank you for the consultation. Time with Patient: Greater than 30
[2024-10-12] MEDS: IBUPROFEN 400 MG TAB PO PRN (17:49)
[2024-10-12] MEDS: THIAMINE 100 MG TAB PO SCH (17:51)
[2024-10-12] MEDS ORDERED: LORazepam 1 MG/0.5 ML VIAL IV PRN ×5 (18:21→18:28)
--- NOTE | 2024-10-13 07:08 | CT ---
EXAMINATION TYPE: CT brain wo con CT DLP: 1170.8 mGycm, Automated exposure control for dose reduction was used. DATE OF EXAM: 10/13/2024 3:42 AM COMPARISON: CT brain 12/05/2019 CLINICAL INDICATION:Male, 54 years old with history of seizure, SEIZURE INPATIENT TECHNIQUE: Brain: Multiple axial CT images of the brain were obtained without IV contrast. . Coronal and sagitta l reformats reviewed. FINDINGS: Brain: Extra-axial spaces: No abnormal extra-axial fluid collections. Ventricular system: Within normal limits Cerebral parenchyma: No acute intraparenchymal hemorrhage or mass effect. Remote lacunar infarcts wi thin the bilateral basal ganglia and left drew radiata. The lomax-white junction is well differentia henrietta. Cerebellum: Unremarkable. Mass effect: No evidence of midline shift. Intracranial vasculature: unremarkable Soft tissues: Normal. Calvarium/osseous structures: No depressed skull fracture. Paranasal sinuses and mastoid air cells: Partial opacification of the right mastoid air cells. The le ft mastoid air cells appear clear. Minimal scattered paranasal sinus mucosal disease. Visualized orbits: Orbital contents are intact. IMPRESSION: 1. No acute intracranial process. 2. Remote lacunar injuries along with nonspecific white matter changes likely secondary to chronic mi croangiopathy. 3. Trace right mastoid effusion. [facility], , 10/13/2024 7:05 AM
[2024-10-13] MEDS ORDERED: FOLIC ACID 1 MG TAB PO SCH (09:00)
[2024-10-13] MEDS ORDERED: NON FORMULARY DRUG (Multivitamin [Multivitamins Adult Gummies] 1 EACH Tablet) PO SCH (09:00)
[2024-10-13] MEDS: SERTRALINE 50 MG TAB PO SCH (10:22)
[2024-10-13] MEDS: NICOTINE 21MG/24HR PATCH TRANSDERM SCH (10:23)
--- NOTE | 2024-10-13 13:41 | P.PN ---
Subjective Progress Note Date: 10/13/24 I am following up with the patient and he feels he is doing better. No further seizure-like activity. He does feel like he is he has pain in his bilateral lower extremity. Objective - Vital Signs Vital signs: Vital Signs Temp 98.2 F 10/13/24 06:49 Pulse 76 10/13/24 06:49 Resp 18 10/13/24 06:49 BP 135/84 10/13/24 06:49 Pulse Ox 99 10/13/24 06:49 FiO2 Intake & Output 10/12/24 10/13/24 10/13/24 18:59 06:59 18:59 Weight 58.967 kg Other: Voiding Method Toilet # Voids 1 - Exam GENERAL: The patient is lying in bed and is not in acute distress. NEUROLOGICAL: Higher mental function: The patient is awake, alert, oriented to self, place and time. Patient is following commands. No aphasia and no neglect. Cranial nerves: The pupils are round, equal and reactive to light and accommodation. Visual santiago are full to confrontation throughout. Extraocular movement is intact no nystagmus is noted. Facial sensation is normal to touch throughout. The facial strength is normal throughout. Hearing is normal bilaterally to hand rub. Tongue is midline and moved [id number] without any difficulty. No dysarthria is noted. Shoulder shrug is normal bilaterally. Motor: The strength is 5 over 5 throughout. Normal tone and bulk. Cerebellum: Normal finger to nose bilaterally. Sensation: Sensation is normal to touch throughout. Reflexes (right/left): 2+ throughout. Plantars are downgoing bilaterally. Some of the workup during this hospital visit consisted of: AST 79 ALT is 30, calcium is 9.0, sodium is 131, serum glucose is 119 Serum alcohol is less than 10. CT of the head is reported as no acute intracranial process. Remote lacunar injury along with nonspecific white matter changes likely secondary due to chronic microangiopathy. - Labs CBC & Chem 7: 10/12/24 06:17 10/12/24 06:17 Assessment and Plan Assessment: This is a 54-year-old gentleman with history of alcohol withdrawal seizure, significant alcohol use, tobacco use who presents emergency department because of convulsion with tongue bite. Last alcohol was this past Friday. His alcohol level is less than 10. Breakthrough seizure seems provoked due to alcohol withdrawal--no further seizures History of alcohol withdrawal seizures Significant alcohol use and his last alcohol drink was this past Friday. Tobacco use Plan: Pending routine EEG I will not start the patient on any antiseizure medication since this seems more provoked from alcohol withdrawal. Will start patient on antiseizure medication only if EEG is relevant for increased risk for seizures I ordered CK level and physical therapy because of patient complaint of bilateral lower extremity pain and to have his gait assessed. Seizure precaution Per the [facility] because of the seizure, to avoid driving for 6 months until seizure-free, avoid heights, avoid swimming unassisted or using heavy machinery. 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 In the meantime I would recommend the patient to seek alcohol Anonymous. Patient was counseled on alcohol cessation Patient was counseled on tobacco cessation Patient is on CIWA protocol Continue on thiamine 100 mg daily Will defer the rest of the medical management to primary and other specialist next Otherwise if above is negative and the patient is clinically continues to be doing better then no further neurological workup. Addendum: Routine EEG: Normal. Time with Patient: Less than 30
--- NOTE | 2024-10-13 21:08 | P.HPIM ---
History of Present Illness H&P Date: 10/12/24 Chief Complaint: Seizures 54-year-old gentleman with history of significant alcohol use, alcohol withdrawal seizures who presents the emergency department because of convulsion. Patient does acknowledge that he continues to drink heavily almost daily and drinks about a pint a day when he drinks. His last drink was this past Friday and it seems that yesterday he had a convulsive episode and he stated that it was worse than his prior episodes when he stopped drinking. He also bit his tongue. Prior to the episode he felt his lower extremities were painful. He stated that the episode of convulsion lasted maybe 5 to 8 minutes. He felt like he was aware in and outs when he was having the convulsion. He does smoke 3/4 to 1 pack daily. In the past as stated earlier he has a history of alcohol withdrawal seizures and his seizures only happen when he stopped drinking. His longest time that he stopped drinking was for 30 days and during that time past 2 weeks he never had any seizures. Denies any true seizure activity. He has been having seizure-like activity over the last 2 to 3 years. 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 Blood work completed in ED reveals WBC of 6.8, hemoglobin of 12.5 and platelet count of 117, sodium 132, potassium 3.5, BUNs/creatinine of 4/0.58 and blood glucose of 80, magnesium low at 1.5, total bilirubin elevated at 2.2, Serum alcohol is less than 10. Review of Systems REVIEW OF SYSTEMS: CONSTITUTIONAL: No fever, no malaise, no fatigue. HEENT: No recent visual problems or hearing problems. Denied any sore throat. CARDIOVASCULAR: No chest pain, orthopnea, PND, no palpitations, no syncope. PULMONARY: No shortness of breath, no cough, no hemoptysis. GASTROINTESTINAL: No diarrhea, no nausea, no vomiting, no abdominal pain. NEUROLOGICAL: No headaches, no weakness, no numbness. HEMATOLOGICAL: Denies any bleeding or petechiae. GENITOURINARY: Denies any burning micturition, frequency, or urgency. MUSCULOSKELETAL/RHEUMATOLOGICAL: Denies any joint pain, swelling, or any muscle pain. ENDOCRINE: Denies any polyuria or polydipsia. The rest of the 14-point review of systems is negative. Past Medical History Past Medical History: Liver Disease Additional Past Medical History / Comment(s): alcoholic cirrhosis History of Any Multi-Drug Resistant Organisms: None Reported Past Surgical History: No Surgical Hx Reported Past Anesthesia/Blood Transfusion Reactions: No Reported Reaction Past Psychological History: Anxiety, Depression Smoking Status: Current every day smoker Past Alcohol Use History: Abuse, Daily, Heavy Past Drug Use History: Marijuana - Past Family History Father Family Medical History: Cancer Medications and Allergies Home Medications Medication Instructions Recorded Confirmed Type Folic Acid 1 mg PO DAILY #60 tab 07/22/24 10/12/24 Rx Cholecalciferol (Vitamin D3) 1,250 mcg PO FR 10/12/24 10/12/24 History [Vitamin D3 (1250 Mcg = 50,000 Iu)] Multivitamin [Multivitamins Adult 1 tab PO DAILY 10/12/24 10/12/24 History Gummies] Sertraline [Zoloft] 50 mg PO DAILY 10/12/24 10/12/24 History Viagra 100mg (Unverified) 1 tab PO DAILY PRN 10/12/24 10/12/24 History Allergies Allergy/AdvReac Type Severity Reaction Status Date / Time lactose AdvReac Diarrhea - Verified 10/12/24 07:55 patient denies Physical Exam Vitals: Vital Signs Temp Pulse Resp BP Pulse Ox 10/12/24 11:45 98.1 F 83 20 145/98 100 10/12/24 08:43 98.7 F 84 18 112/72 99 10/12/24 06:18 77 18 114/79 97 10/12/24 04:00 82 18 115/85 97 10/12/24 01:41 96 18 148/92 95 10/11/24 22:59 98.4 F 101 H 18 149/95 95 Intake and Output 10/11/24 10/12/24 10/12/24 22:59 06:59 14:59 Other: Weight 58.967 kg General appearance: alert, in no apparent distress, anxious, in distress Head exam: Present: atraumatic, normocephalic, normal inspection Eye exam: Present: normal appearance, PERRL, EOMI. Absent: scleral icterus, conjunctival injection, periorbital swelling ENT exam: Present: normal exam, mucous membranes moist Neck exam: Present: normal inspection. Absent: tenderness, meningismus, lymphadenopathy Respiratory exam: Present: normal lung sounds bilaterally. Absent: respiratory distress, wheezes, rales, rhonchi, stridor Cardiovascular Exam: Present: normal rhythm, tachycardia, normal heart sounds. Absent: systolic murmur, diastolic murmur, rubs, gallop, clicks GI/Abdominal exam: Present: soft, normal bowel sounds. Absent: distended, tenderness, guarding, rebound, rigid Extremities exam: Present: normal inspection, full ROM, normal capillary refill. Absent: tenderness, pedal edema, joint swelling, calf tenderness Neurological exam: Present: alert, oriented X3, CN II-XII intact Psychiatric exam: Present: normal affect, normal mood Skin exam: Present: warm, dry, intact, normal color. Absent: rash Results CBC & Chem 7: 10/12/24 06:17 10/12/24 06:17 Labs: Abnormal Lab Results - Last 24 Hours (Table) 10/11/24 10/11/24 10/11/24 Range/Units 23:03 23:03 23:05 RBC 4.17 L (4.30-5.90) m/uL Hgb (13.0-17.5) gm/dL Hct (39.0-53.0) % MCV 102.3 H (80.0-100.0) fL RDW (11.5-15.5) % Plt Count 128 L (150-450) k/uL Sodium 131 L (137-145) mmol/L Chloride 97 L (98-107) mmol/L Carbon Dioxide 21 L (22-30) mmol/L BUN 5 L (9-20) mg/dL Creatinine 0.52 L (0.66-1.25) mg/dL Glucose 119 H (74-99) mg/dL POC Glucose (mg/dL) 133 H (70-110) mg/dL Calcium (8.4-10.2) mg/dL Phosphorus 2.4 L (2.5-4.5) mg/dL Magnesium 1.3 L (1.6-2.3) mg/dL Total Bilirubin 2.5 H (0.2-1.3) mg/dL AST 79 H (17-59) U/L Total Protein (6.3-8.2) g/dL Albumin (3.5-5.0) g/dL 10/12/24 10/12/24 Range/Units 06:17 06:17 RBC 3.67 L (4.30-5.90) m/uL Hgb 12.5 L (13.0-17.5) gm/dL Hct 38.9 L (39.0-53.0) % MCV 105.8 H (80.0-100.0) fL RDW 15.7 H (11.5-15.5) % Plt Count 117 L (150-450) k/uL Sodium 132 L (137-145) mmol/L Chloride (98-107) mmol/L Carbon Dioxide (22-30) mmol/L BUN 4 L (9-20) mg/dL Creatinine 0.58 L (0.66-1.25) mg/dL Glucose (74-99) mg/dL POC Glucose (mg/dL) (70-110) mg/dL Calcium 8.3 L (8.4-10.2) mg/dL Phosphorus (2.5-4.5) mg/dL Magnesium 1.5 L (1.6-2.3) mg/dL Total Bilirubin 2.2 H (0.2-1.3) mg/dL AST (17-59) U/L Total Protein 5.6 L (6.3-8.2) g/dL Albumin 3.3 L (3.5-5.0) g/dL Assessment and Plan Assessment: 1. Alcohol intoxication and withdrawal -Patient has been placed on IV Ativan per [facility] protocol; IV fluids -Continue thiamine and folic acid 2. Breakthrough seizures; likely associated with alcohol withdrawal -Patient has been placed on seizure precautions; CT of the head is negative -Consult neurology 3. Elevated liver enzymes; likely related to chronic alcohol abuse; will monitor liver enzymes 4. Thrombocytopenia; likely associated with alcohol use; monitor CBC 5. Depression; Zoloft 50 mg daily DVT prophylaxis; SCDs/subcu heparin CODE STATUS; full code
[2024-10-13] MEDS: ACETAMINOPHEN TAB 325 MG TAB PO PRN (22:08)
--- NOTE | 2024-10-13 22:21 | EEG ---
ELECTROENCEPHALOGRAM REPORT CLINICAL HISTORY: This is a 54-year-old gentleman with history of alcohol use, who presents to the emergency department because of episode of convulsing. The video EEG is obtained to evaluate for seizure epileptiform activity. RELEVANT MEDICATION: Ativan. EEG TYPE: This is a routine 21-channel EEG with video using the 10/20 electrode placement system. DESCRIPTION: Wakefulness and drowsiness are obtained. During awake state, the posterior-dominant rhythm consists of [id number] voltage of 9 hertz activity that is well modulated and well sustained. There is no physiological stage 2 sleep architecture. There is no focal slowing. Interictal and ictal are none. ACTIVATION PROCEDURE: Photic stimulation did not evoke a posterior driving response. There is no abnormality during the photic stimulation. Hyperventilation is not performed. CLINICAL INTERPRETATION: This is a normal routine EEG. There is no focal slowing, epileptiform discharge, or seizure on the EEG. A normal routine EEG does not rule out underlying epilepsy. Clinical correlation is recommended. MMCHELSIE / LEAHN: [id number] /
[2024-10-14 10:20] LABS: HCT 40.3 % (39.6-50.0); HGB 13.2 g/dL (13.0-17.0); MCH 34.3 pg (27.0-32.0); MCHC 32.8 g/dL (32.0-37.0); MCV 104.7 FL (80.0-97.0); Mean Platelet Volume 11.2 FL (9.5-12.2); NRBC Per 100 WBC 0 X 10*3/uL (0.00-0.01); Platelet Count 100 X 10*3/uL (140-440); RBC 3.85 X 10*6/uL (4.40-5.60); RDW 15.6 % (11.5-14.5)
[2024-10-14 10:21] LABS: Basophils % (A) 1.6 %; Eosinophils # (A) 0.21 X 10*3/uL (0.04-0.35); Eosinophils % (A) 3.4 %; Lymphocytes # (A) 2.59 X 10*3/uL (0.90-5.00); Lymphocytes % (A) 42.5 %; Monocytes # (A) 0.66 X 10*3/uL (0.20-1.00); Monocytes % (A) 10.8 %; Neutrophils # (A) 2.51 X 10*3/uL (1.80-7.70); Neutrophils % (A) 41.2 %
[2024-10-14 10:28] LABS: BUN/Creat Ratio 8.17 Ratio (12.00-20.00); Blood Urea Nitrogen 4.9 mg/dL (9.0-27.0); Carbon Dioxide 22.7 mmol/L (21.6-31.8); Chloride 104 mmol/L (96-109); Glucose 96 mg/dL (70-110); Magnesium 1.3 mg/dL (1.5-2.4); Potassium 4.3 mmol/L (3.5-5.5); Sodium 138 mmol/L (135-145)
--- NOTE | 2024-10-14 13:19 | P.PN ---
Subjective Progress Note Date: 10/14/24 I am following-up with patient and he feels he is doing better. He feels strength in legs are better and is walking around without issues. Objective - Vital Signs Vital signs: Vital Signs Temp 98.2 F 10/14/24 06:59 Pulse 73 10/14/24 06:59 Resp 17 10/14/24 06:59 BP 135/89 10/14/24 06:59 Pulse Ox 98 10/14/24 06:59 FiO2 Intake & Output 10/13/24 10/14/24 10/14/24 18:59 06:59 18:59 Output Total 700 300 Balance -700 -300 Output: Urine 700 300 Other: Voiding Method Toilet Urinal # Voids 3 - Exam GENERAL: The patient is lying in bed and is not in acute distress. NEUROLOGICAL: Higher mental function: The patient is awake, alert, oriented to self, place and time. Patient is following commands. No aphasia and no neglect. Cranial nerves: The pupils are round, equal and reactive to light and accommodation. Visual santiago are full to confrontation throughout. Extraocular movement is intact no nystagmus is noted. Facial sensation is normal to touch throughout. The facial strength is normal throughout. Hearing is normal b ilaterally to hand rub. Tongue is midline and moved [id number] without any difficulty. No dysarthria is noted. Shoulder shrug is normal bilaterally. Motor: The strength is 5 over 5 throughout. Normal tone and bulk. Cerebellum: Normal finger to nose bilaterally. Sensation: Sensation is normal to touch throughout. Reflexes (right/left): 2+ throughout. Plantars are downgoing bilaterally. Some of the workup during this hospital visit consisted of: AST 79 ALT is 30, calcium is 9.0, sodium is 131, serum glucose is 119 Serum alcohol is less than 10. CK level 178 CT of the head is reported as no acute intracranial process. Remote lacunar injury along with nonspecific white matter changes likely secondary due to chronic microangiopathy. Routine EEG: Normal. - Labs CBC & Chem 7: 10/14/24 06:39 10/14/24 06:39 Labs: Abnormal Lab Results - Last 24 Hours (Table) 10/14/24 10/14/24 Range/Units 06:39 06:39 RBC 3.85 L (4.40-5.60) X 10*6/uL MCV 104.7 H (80.0-97.0) FL MCH 34.3 H (27.0-32.0) pg RDW 15.6 H (11.5-14.5) % Plt Count 100 L (140-440) X 10*3/uL BUN 4.9 L (9.0-27.0) mg/dL BUN/Creatinine Ratio 8.17 L (12.00-20.00) Ratio Magnesium 1.3 L (1.5-2.4) mg/dL Assessment and Plan Assessment: This is a 54-year-old gentleman with history of alcohol withdrawal seizure, significant alcohol use, tobacco use who presents emergency department because of convulsion with tongue bite. Last alcohol was this past Friday. His alcohol level is less than 10. Breakthrough seizure seems provoked due to alcohol withdrawal--no further seizures History of alcohol withdrawal seizures Significant alcohol use and his last alcohol drink was this past Friday. Tobacco use Plan: I will not start the patient on any antiseizure medication since this seems more provoked from alcohol withdrawal. Seizure precaution Per the [place] DMV because of the seizure, to avoid driving for 6 months until seizure-free, avoid heights, avoid swimming unassisted or using heavy machinery. 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 In the meantime I would recommend the patient to seek alcohol Anonymous. Patient was counseled on alcohol cessation Patient was counseled on tobacco cessation Patient is on CIWA protocol Continue on thiamine 100 mg daily Will defer the rest of the medical management to primary and other specialist next Otherwise, no additional neurological work-up. Will sign off. Please reconsult if needed. Time with Patient: Less than 30
--- NOTE | 2024-10-14 18:25 | P.PN ---
Subjective Progress Note Date: 10/14/24 54-year-old gentleman with history of significant alcohol use, alcohol withdrawal seizures who presents the emergency department because of convulsion. Patient does acknowledge that he continues to drink heavily almost daily and drinks about a pint a day when he drinks. His last drink was this past Friday and it seems that yesterday he had a convulsive episode and he stated that it was worse than his prior episodes when he stopped drinking. He also bit his tongue. Prior to the episode he felt his lower extremities were painful. He stated that the episode of convulsion lasted maybe 5 to 8 minutes. He felt like he was aware in and outs when he was having the convulsion. He does smoke 3/4 to 1 pack daily. In the past as stated earlier he has a history of alcohol withdrawal seizures and his seizures only happen when he stopped drinking. His longest time that he stopped drinking was for 30 days and during that time past 2 weeks he never had any seizures. Denies any true seizure activity. He has been having seizure-like activity over the last 2 to 3 years. 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 Blood work completed in ED reveals WBC of 6.8, hemoglobin of 12.5 and platelet count of 117, sodium 132, potassium 3.5, BUNs/creatinine of 4/0.58 and blood glucose of 80, magnesium low at 1.5, total bilirubin elevated at 2.2, Serum alcohol is less than 10. 10/14/2024 Patient is seen and evaluated in room at bedside; continues to report some aching both lower extremity and weakness Vital signs are reviewed and stable with temperature of 98.3, pulse 73, respirations 17 and blood pressure 135/89 Lab review shows sodium 138, potassium 2.3, BUNs/creatinine 4.9/0.6, WBC 6.10, hemoglobin of 13.2; CK of 178 Patient has been evaluated by PT/OT and no PT treatment recommended -Patient admitted with seizure likely related to alcohol withdrawal; EEG is completed and does not reveal any seizure activity; no antiseizure medications recommended at this time -Continue with Ativan per [facility] protocol Objective - Vital Signs Vital signs: Vital Signs Temp 98.2 F 10/14/24 06:59 Pulse 73 10/14/24 06:59 Resp 17 10/14/24 06:59 BP 135/89 10/14/24 06:59 Pulse Ox 98 10/14/24 06:59 FiO2 Intake & Output 10/13/24 10/14/24 10/14/24 18:59 06:59 18:59 Output Total 700 Balance -700 Output: Urine 700 Other: Voiding Method Toilet Urinal # Voids 3 - Exam General appearance: alert, in no apparent distress, anxious, in distress Head exam: Present: atraumatic, normocephalic, normal inspection Eye exam: Present: normal appearance, PERRL, EOMI. Absent: scleral icterus, conjunctival injection, periorbital swelling ENT exam: Present: normal exam, mucous membranes moist Neck exam: Present: normal inspection. Absent: tenderness, meningismus, lymphadenopathy Respiratory exam: Present: normal lung sounds bilaterally. Absent: respiratory distress, wheezes, rales, rhonchi, stridor Cardiovascular Exam: Present: normal rhythm, tachycardia, normal heart sounds. Absent: systolic murmur, diastolic murmur, rubs, gallop, clicks GI/Abdominal exam: Present: soft, normal bowel sounds. Absent: distended, tenderness, guarding, rebound, rigid Extremities exam: Present: normal inspection, full ROM, normal capillary refill. Absent: tenderness, pedal edema, joint swelling, calf tenderness Neurological exam: Present: alert, oriented X3, CN II-XII intact Psychiatric exam: Present: normal affect, normal mood Skin exam: Present: warm, dry, intact, normal color. Absent: rash - Labs CBC & Chem 7: 10/14/24 06:39 10/14/24 06:39 Labs: Abnormal Lab Results - Last 24 Hours (Table) 10/14/24 10/14/24 Range/Units 06:39 06:39 RBC 3.85 L (4.40-5.60) X 10*6/uL MCV 104.7 H (80.0-97.0) FL MCH 34.3 H (27.0-32.0) pg RDW 15.6 H (11.5-14.5) % Plt Count 100 L (140-440) X 10*3/uL BUN 4.9 L (9.0-27.0) mg/dL BUN/Creatinine Ratio 8.17 L (12.00-20.00) Ratio Magnesium 1.3 L (1.5-2.4) mg/dL Assessment and Plan Assessment: 1. Alcohol intoxication and withdrawal -Patient has been placed on IV Ativan per [facility] protocol; IV fluids -Continue thiamine and folic acid 2. Breakthrough seizures; likely associated with alcohol withdrawal -Patient has been placed on seizure precautions; CT of the head is negative -Consult neurology 3. Elevated liver enzymes; likely related to chronic alcohol abuse; will monitor liver enzymes 4. Thrombocytopenia; likely associated with alcohol use; monitor CBC 5. Depression; Zoloft 50 mg daily DVT prophylaxis; SCDs/subcu heparin CODE STATUS; full code
[2024-10-15] MEDS: LORazepam 1 MG TAB PO PRN (00:24)
[2024-10-15] MEDS: CHOLECALCIFEROL 125 MCG (5000 IU) TABLET PO SCH (08:03)
[2024-10-15 08:09] VITALS: BP 121/79; PULSE 71; RESP 17; TEMP 98.1
[2024-10-15 08:16] LABS: Basophils # (A) 0.11 X 10*3/uL (0.00-0.10); Basophils % (A) 1.7 %; Eosinophils # (A) 0.25 X 10*3/uL (0.04-0.35); Eosinophils % (A) 3.9 %; HCT 37.5 % (39.6-50.0); HGB 12.5 g/dL (13.0-17.0); Lymphocytes # (A) 3.06 X 10*3/uL (0.90-5.00); Lymphocytes % (A) 48.2 %; MCH 34.8 pg (27.0-32.0); MCHC 33.3 g/dL (32.0-37.0); MCV 104.5 FL (80.0-97.0); Mean Platelet Volume 11.1 FL (9.5-12.2); Monocytes # (A) 0.72 X 10*3/uL (0.20-1.00); Monocytes % (A) 11.3 %; NRBC Per 100 WBC 0 X 10*3/uL (0.00-0.01); Neutrophils # (A) 2.18 X 10*3/uL (1.80-7.70); Neutrophils % (A) 34.4 %; Platelet Count 109 X 10*3/uL (140-440); RBC 3.59 X 10*6/uL (4.40-5.60); RDW 15.8 % (11.5-14.5); WBC 6.35 X 10*3/uL (4.50-10.00)
[2024-10-15 09:18] LABS: BUN/Creat Ratio 10.17 Ratio (12.00-20.00); Blood Urea Nitrogen 6.1 mg/dL (9.0-27.0); Calcium 9.1 mg/dL (8.7-10.3); Carbon Dioxide 21.3 mmol/L (21.6-31.8); Chloride 103 mmol/L (96-109); Glucose 116 mg/dL (70-110); Sodium 136 mmol/L (135-145)
== END 2024-10-15 12:53 | disposition home or self-care (01) ==
LOC: EC 22:58 → 5NMEDONC 23:41 → 4SSUR 10-12 16:51
PROVIDERS: ADMIT Hospitalist; ATTEND Hospitalist
DX: F10.139 Alcohol abuse with withdrawal, unspecified (principal); F10.129 Alcohol abuse with intoxication, unspecified; R56.9 Unspecified convulsions; R74.8 Abnormal levels of other serum enzymes; D69.6 Thrombocytopenia, unspecified; F32.A Depression, unspecified; F41.9 Anxiety disorder, unspecified; F17.200 Nicotine dependence, unspecified, uncomplicated; Y90.0 Blood alcohol level of less than 20 mg/100 ml; Z79.899 Other long term (current) drug therapy
CPT/HCPCS: 96361 ×2; 96374 ×2; 99285; 36415; 95816; 97161; 97165; 80053 ×2; 80048 ×2; 82550; 83690; 83735 ×3; 84100 ×2; 85025 ×4; 80320; 70450; G0378 ×6; S4990 ×4; J2060; J3360